=== PATIENT | male | born 1940 | race Caucasian/White ===

== ENCOUNTER → 2016-11-29 | Outpatient (CLI) | payer MEDICAID, MEDICARE, OTHER ==
[2015-12-13 08:57] VITALS: BP 121/65
[~2016-11-29] MED LIST: ASPI325T8 PO; ATOR40TA59 PO; CLOP75TA PO; NITR0.4T SL; PROP150T2 PO
--- NOTE | 2016-11-29 10:14 | RAD ---
Indication hemoptysis. Noncontrast imaging through the chest was performed and is compared to an examination 03/11/2016. History of lung malignancy is noted. Imaging through the upper abdomen shows no acute finding. A right renal cyst and and hepatic cyst are noted similar to the previous exam. Postoperative changes involving the spine are noted. The thoracic aorta appears grossly normal. Coronary artery calcification or stents are noted. There is no significant hilar or mediastinal adenopathy. There is some scarring at the right lung apex similar to the previous exam. Moderate hyperexpansion is noted involving the lungs. An acute finding in the chest is not seen. There has not been a significant change relative to the prior study IMPRESSION: Chronic changes in the right upper lobe. An acute finding in the chest or significant change compared to the study 03/11/2016 is not seen. PQRS Compliance Statement: One or more of the following individualized dose reduction techniques were utilized for this examination: 1. Automated exposure control 2. Adjustment of the mA and/or kV according to patient size 3. Use of iterative reconstruction technique
== END | disposition home or self-care (01) ==
LOC: PF 08:04
PROVIDERS: ATTEND Internal Medicine Pulmonary Disease
DX: N28.1 Cyst of kidney, acquired (principal); K76.89 Other specified diseases of liver; I25.10 Atherosclerotic heart disease of native coronary artery without angina pectoris; J98.4 Other disorders of lung; Z95.5 Presence of coronary angioplasty implant and graft; Z85.118 Personal history of other malignant neoplasm of bronchus and lung
CPT/HCPCS: 71250; 94060; 94729

== ENCOUNTER 2017-10-18 14:22 | Emergency (ER) | payer MEDICARE ==
[2017-10-18] MEDS ORDERED: oxyCODONE/APAP 10/325 1 TAB TABLET PO (15:45)
== END 2017-10-18 17:59 | disposition left against medical advice (07) ==
LOC: ER 14:22
DX: G89.29 Other chronic pain (principal); M25.562 Pain in left knee; I10 Essential (primary) hypertension; I25.2 Old myocardial infarction; I25.10 Atherosclerotic heart disease of native coronary artery without angina pectoris
CPT/HCPCS: 99282

== ENCOUNTER → 2018-01-30 | Outpatient (CLI) | payer MEDICARE ==
[2017-12-09 15:00] VITALS: BP 96/53
[~2018-01-30] MED LIST changes: +LEUP22.52 IM; +LISI2.5T PO; +METO-239 PO; +OXYC-328 PO
--- NOTE | 2018-01-30 09:31 | RAD ---
Ultrasound-guided prostate fiducial marker placements, 01/30/2018: History: Prostate cancer Under transrectal sonographic guidance 3 Civco prostate fiducial markers were placed. The first marker was placed in the superior aspect of the left lobe of the gland. A second marker was placed inferiorly in the left lobe of the gland. A third marker was placed in the midportion of the right lobe of the gland. The patient tolerated the procedure well and left the department in good condition. He is to follow up with Dr. Holland.
== END | disposition home or self-care (01) ==
LOC: US 08:53
PROVIDERS: ATTEND Radiology Radiation Oncology
DX: C61 Malignant neoplasm of prostate (principal); M19.90 Unspecified osteoarthritis, unspecified site; I25.10 Atherosclerotic heart disease of native coronary artery without angina pectoris; J44.9 Chronic obstructive pulmonary disease, unspecified; I10 Essential (primary) hypertension; E78.5 Hyperlipidemia, unspecified; F17.210 Nicotine dependence, cigarettes, uncomplicated; I25.2 Old myocardial infarction; Z72.89 Other problems related to lifestyle; Z85.118 Personal history of other malignant neoplasm of bronchus and lung; Z95.5 Presence of coronary angioplasty implant and graft; Z79.899 Other long term (current) drug therapy; Z79.82 Long term (current) use of aspirin; Z94.2 Lung transplant status; Z98.49 Cataract extraction status, unspecified eye; Z90.49 Acquired absence of other specified parts of digestive tract
CPT/HCPCS: 55876; 77387

== ENCOUNTER 2018-04-30 13:09 | Emergency (ER) | payer MEDICARE, OTHER ==
[~2018-04-30] VITALS: Ht 182.9 cm; Wt 61.7 kg
[~2018-04-30 13:09] MED LIST changes: +DOCU-109 PO; -OXYC-328 PO; +OXYC1TAB22 PO; +TAMS0.4C97 PO
[2018-04-30 14:17] VITALS: BP 141/71
[2018-04-30] MEDS ORDERED: CEPH500C PO (14:57)
[2018-04-30] MEDS ORDERED: SULF1TAB24 PO (14:57)
[2018-04-30] MEDS ORDERED: IBUP-1007 PO (14:58)
--- NOTE | 2018-04-30 15:18 | RAD ---
Indication: Right wrist pain for 6 weeks TECHNIQUE: 3 views of the right wrist COMPARISON: None Findings/ impression: No acute fracture or dislocation. Diffuse moderate osteopenia. Mild radiocarpal joint osteoarthritis. Wrist swelling noted. Electronically signed by: Sidney Wilkinson DO (04/30/2018 3:14 PM) [facility]
--- NOTE | 2018-04-30 15:19 | RAD ---
Indication: Right elbow pain and swelling for 3 weeks. TECHNIQUE: 3 views of the right elbow COMPARISON: None Findings/ impression: No acute fracture or dislocation. No elbow joint effusion. Posterior elbow soft tissue swelling. Small calcific density at the insertion of the triceps tendon may represent a detached enthesophyte or an avulsion fracture. Electronically signed by: Sidney Wilkinson DO (04/30/2018 3:16 PM) [facility]
[2018-04-30] MEDS ORDERED: IBUPROFEN 600 MG TABLET. PO ONE (15:45)
--- NOTE | 2018-04-30 17:51 | PHYS DOC ---
Past Medical History Past Medical History: CAD, Cancer, High Cholesterol, Hypertension, [place] Additional Past Medical Histor: lung ca hx 2000, prostate and colon cancer Past Surgical History: Appendectomy, Other Additional Past Surgical Histo: lobectomy, cardiac stents, back surgery Additional Information: 3-4 cigarettes daily Alcohol Use: Occasionally Drug Use: None Adult General Chief Complaint Chief Complaint: ELBOW PROBLEM HPI HPI Patient is a 77 year old m p/w elbow and wrist pain. x three weeks, getting worse no injury. mild to moderate in nature. no trauma no fever. has never had this before. symptoms mdoerate worsening with time. Review of Systems Review of Systems Constitutional: Denies fever or chills [] Eyes: Denies change in visual acuity, redness, or eye pain [] : Denies dysuria or hematuria [] Musculoskeletal: D Integument: Denies rash or skin lesions [] Neurologic: Denies headache, focal weakness or sensory changes [] Endocrine: Denies polyuria or polydipsia [] All other systems were reviewed and found to be within normal limits, except as documented in this note. Current Medications Current Medications Current Medications Medications (Trade) Dose Ordered Sig/Serge Start Time Stop Time Status Last Admin Dose Admin Ibuprofen (Motrin) 600 mg 1X ONCE 04/30/18 15:45 04/30/18 15:46 DC 04/30/18 15:43 600 MG Allergies Allergies Allergies Coded Allergies Type Severity Reaction Last Updated Verified No Known Drug Allergies 08/27/13 No Physical Exam Physical Exam Constitutional: Well developed, well nourished, no acute distress, non-toxic appearance. [] HENT: Normocephalic, atraumatic, bilateral external ears normal, oropharynx moist, no oral exudates, nose normal. [] Eyes: PERRLA, EOMI, conjunctiva normal, no discharge. [] Neck: Normal range of motion, no tenderness, supple, no stridor. [] normal respiratory effort no increased work of breathing. Abdomen: Bowel sounds normal, soft, no tenderness, no masses, no pulsatile masses. [] Skin: se below Back: No tenderness, no CVA tenderness. [] Extremities: right elbow moderate swlling loclized to olecranon with overlying erythema and warmth rom of elbow is intact. mild swelling right wrist with no erythema or inudration, passive rom is intact. distal strength and sensation is intact [] Neurologic: Alert and oriented X 3, normal motor function, normal sensory function, no focal deficits noted. [] Psychologic: Affect normal, judgement normal, mood normal. [] Current Patient Data Vital Signs Vital Signs Date Time Temp Pulse Resp B/P (MAP) Pulse Ox O2 Delivery O2 Flow Rate FiO2 04/30/18 14:17 98.1 69 18 141/71 (94) 100 Room Air 98.1 EKG EKG [] Radiology/Procedures Radiology/Procedures [] Impressions: TECHNIQUE: 3 views of the right elbow COMPARISON: None Findings/ impression: No acute fracture or dislocation. No elbow joint effusion. Posterior elbow soft tissue swelling. Small calcific density at the insertion of the triceps tendon may represent a detached enthesophyte or an avulsion fracture. Electronically signed by: Sidney Everett DO (04/30/2018 3:16 PM) [facility] DICTATED and SIGNED BY: SIDNEY EVERETT DO DATE: 04/30/18 1514 Findings/ impression: No acute fracture or dislocation. Diffuse moderate osteopenia. Mild radiocarpal joint osteoarthritis. Wrist swelling noted. Electronically signed by: Sidney Everett DO (04/30/2018 3:14 PM) [facility] DICTATED and SIGNED BY: SIDNEY EVERETT DO DATE: 04/30/18 1512 Course & Med Decision Making Course & Med Decision Making Pertinent Labs and Imaging studies reviewed. (See chart for details) []77 yo m hx of prostate ca on radiation therapy pw/ wrist and elbow pain x three weeks. in ed objective olecranon bursitis, query if wrsit is dependent edema or reactive secondary to that. the wrist is not red or inflamed, passive rom is okay, no fever, seems septic joint very unlikely. procedure note: elbow right. verbal consent. wound prepped and drapped lido subq anesthesia, 20 ga needle used to aspirate 10 mL clear straw colored fluid from olecranon. for now, plan is wrist splint, antiinflammatory, sriram wrap to elbow and antibiotics, return prec discussed including worsening symptoms fever etc pt is agreeable. Dragon Disclaimer Dragon Disclaimer This electronic medical record was generated, in whole or in part, using a voice recognition dictation system. Departure Departure Impression: Primary Impression: Olecranon bursitis Disposition: HOME, SELF-CARE Condition: STABLE Patient Instructions: Bursitis, [id number] Additional Instructions: Return for fever greater than 100.5 or worsening pain despite treatment Scripts Ibuprofen (IBUPROFEN) 600 Mg Tablet 600 MG PO PRN Q6HRS PRN for INFLAMMATION, #15 TAB Prov: VELASQUEZ MARIN MD 04/30/18 Sulfamethoxazole/Trimethoprim (BACTRIM DS TABLET) 1 Each Tablet 1 TAB PO BID, #14 TAB Prov: VELASQUEZ MARIN MD 04/30/18 Cephalexin (CEPHALEXIN) 500 Mg Capsule 1 CAP PO TID, #21 CAP Prov: VELASQUEZ MARIN MD 04/30/18 VELASQUEZ MARIN MD Apr 30, 2018 17:51
== END 2018-04-30 15:43 | disposition home or self-care (01) ==
LOC: ER 13:09
DX: M70.21 Olecranon bursitis, right elbow (principal); I25.10 Atherosclerotic heart disease of native coronary artery without angina pectoris; E78.00 Pure hypercholesterolemia, unspecified; I10 Essential (primary) hypertension; I25.2 Old myocardial infarction; F17.210 Nicotine dependence, cigarettes, uncomplicated; Z90.49 Acquired absence of other specified parts of digestive tract; Y93.89 Activity, other specified
CPT/HCPCS: 20605; 29125; 73080; 73110; 99284

== ENCOUNTER → 2018-06-29 | Outpatient (CLI) | payer OTHER ==
[~2018-06-29] MED LIST changes: +CEPH500C PO; +IBUP-1007 PO; +SULF1TAB24 PO
--- NOTE | 2018-06-29 11:47 | RAD ---
MRI of the cervical spine without contrast 06/29/2018 CLINICAL HISTORY: Neck pain which radiates down both arms, right greater than left. TECHNIQUE: Unenhanced T1-weighted, T2-weighted and inversion recovery sagittal and gradient echo and T2-weighted axial images of the cervical spine were obtained. FINDINGS: Mild lateral curvature of the cervical spine is seen convex to the right. There is straightening of the normal cervical lordosis. TECHNIQUE: Unenhanced T1-weighted, T2-weighted and inversion recovery sagittal and gradient echo and T2-weighted axial images of the cervical spine were obtained. FINDINGS: Comparison is made to a CT scan of the cervical spine dated 05/02/2014. Mild lateral curvature of the cervical spine is seen convex to the right. There is straightening of the normal cervical lordosis. Degenerative signal changes are seen involving all of the disks of the cervical spine. Loss of height of the C5-6 and C6-7 discs is noted. Degenerative signal changes are seen within the marrow surrounding these discs. No area of abnormal signal intensity is seen involving the cervical spinal cord. At the C2-3 disc space there is a minimal generalized disc bulge. Degenerative changes are seen involving the uncovertebral and facet joints bilaterally. These findings do not result in significant central spinal canal or neural foraminal stenosis. At the C3-4 disc space there is a mild generalized disc bulge. Degenerative changes are seen involving the uncovertebral and facet joints, left greater than right. These findings when combined do not result in significant central spinal canal stenosis. Mild left neural foraminal stenosis is seen. The right neural foramen is patent. At the C4-5 disc space there is a mild generalized disc bulge. Degenerative changes are seen involving the uncovertebral and facet joints bilaterally. These findings when combined do not result in significant central spinal canal stenosis. Mild right neural foraminal stenosis is seen. The left neural foramen is patent. At the C5-6 disc space there is a mild generalized disc bulge. Superimposed on this disc bulge is a focal central disc protrusion. This measures 3 mm in AP diameter. Degenerative changes are seen involving the uncovertebral and facet joints bilaterally. These findings when combined efface the anterior CSF without resulting in significant central spinal canal stenosis. Mild to moderate left neural foraminal stenosis is seen. The right neural foramen is patent. At the C6-7 disc space there is a mild to moderate generalized disc bulge. This is eccentric to the right. Degenerative changes are seen involving the uncovertebral and facet joints bilaterally. These findings efface the anterior and posterior CSF resulting in mild central spinal canal stenosis without evidence of cord impingement. Moderate bilateral neural foraminal stenosis is seen. At the C7-T1 disc space there is a mild generalized disc bulge. Degenerative changes are seen involving the facet joints, right greater than left. These findings when combined do not result in significant central spinal canal or neural foraminal stenosis. IMPRESSION: Degenerative changes are seen involving the cervical spine. These findings result in mild central spinal canal stenosis at C6-7 without evidence of cord impingement. Mild left neural foraminal stenosis is seen at C3-4. Mild right neural foraminal stenosis is seen at C4-5. Mild to moderate left neural foraminal stenosis is seen at C5-6. Moderate bilateral neural foraminal stenosis is seen at C6-7. Electronically signed by: Jareth Hardy MD (06/29/2018 11:44 AM) [facility]
== END | disposition home or self-care (01) ==
LOC: MRI 09:58
PROVIDERS: ATTEND Orthopaedic Surgery
DX: M48.02 Spinal stenosis, cervical region (principal); M47.22 Other spondylosis with radiculopathy, cervical region; M50.123 Cervical disc disorder at C6-C7 level with radiculopathy; M51.24 Other intervertebral disc displacement, thoracic region; M75.51 Bursitis of right shoulder
CPT/HCPCS: 72141

== ENCOUNTER → 2018-11-22 | Outpatient (CLI) | payer OTHER ==
[~2018-11-22] MED LIST changes: +CONTRAST GIVEN. MC PRN; +IOHEXOL 300 MG/ML 100ML VIAL. IV ONE
--- NOTE | 2018-11-22 13:08 | RAD ---
CT study of the chest with contrast Clinical indications: Lung cancer. History of lobectomy. Follow-up study. COMPARISON: December 09, 2017. TECHNIQUE: After IV infusion of 75 cc of Optiray 300, helical CT scanning of the chest was performed. PQRS compliance Statement One or more of the following individualized dose reduction techniques were utilized for this study: 1. Automated exposure control 2. Adjustment of the mA and/or kV according to patient size 3. Use of iterative reconstruction technique FINDINGS: No enlarged thoracic lymphadenopathy is evident. No focal aneurysmal dilatation or dissection of the thoracic aorta is seen. Heart size is normal. Calcified atheromatous disease of the coronary arteries is seen. No pericardial effusion is seen. Again seen is right apical pleural thickening and right apical nodular scarring and right upper lobe linear scarring which is unchanged. Right upper lobe lobectomy is evident. Proximal bronchial tree is patent. Wall thickening of the residual proximal right upper lobe bronchus previously mentioned is unchanged. No hilar soft tissue mass is evident. There is a new finding of mild wall thickening of the posterior right lateral aspect of the distal trachea. This may be due to adherent mucus. Bilateral emphysema is seen. There is a tiny lung nodule within the lateral aspect of the left upper lobe which is stable. No new lung nodule or lung infiltrate is seen. No pleural effusion or pneumothorax is evident. No adrenal mass is evident. There is a stone of the upper pole of the right kidney. There is a prominent cyst of the lateral aspect of the right kidney which measures 5 cm. Cyst of the anterior segment of the right lobe liver is seen. Again seen is a compression fracture of the lumbar spine with surgical fusion hardware. This is unchanged. No lytic process is seen. IMPRESSION: New finding of wall thickening of the posterior lateral aspect of the distal trachea. This most likely represents adherent mucus. Otherwise stable chest CT. No new lung nodule or lung infiltrate is evident. Electronically signed by: Seven Bui MD (11/22/2018 1:05 PM) [facility]
== END | disposition home or self-care (01) ==
LOC: CT 09:52
PROVIDERS: ATTEND Family Medicine
DX: J43.9 Emphysema, unspecified (principal); I25.10 Atherosclerotic heart disease of native coronary artery without angina pectoris; R91.1 Solitary pulmonary nodule; N28.1 Cyst of kidney, acquired; K76.89 Other specified diseases of liver; M48.56XA Collapsed vertebra, not elsewhere classified, lumbar region, initial encounter for fracture; Z90.2 Acquired absence of lung [part of]; Z85.118 Personal history of other malignant neoplasm of bronchus and lung
CPT/HCPCS: 71260; Q9967

== ENCOUNTER 2018-12-21 18:32 | Emergency (ER) | payer OTHER ==
[~2018-12-21] VITALS: Ht 182.9 cm; Wt 59.0 kg
[~2018-12-21 18:32] MED LIST changes: -CONTRAST GIVEN. MC PRN; -IOHEXOL 300 MG/ML 100ML VIAL. IV ONE
[2018-12-21] MEDS ORDERED: IV NORMAL SALINE 1000ML BAG 1,000 ML IV SCH (18:43)
[2018-12-21] MEDS ORDERED: fentaNYL PF VIAL 100 MCG/2 ML VIAL IV PRN (18:45)
--- NOTE | 2018-12-21 18:51 | PHYS DOC ---
Past Medical History Past Medical History: CAD, Cancer, High Cholesterol, Hypertension, [place] Additional Past Medical Histor: lung ca hx 2000, prostate and colon cancer Past Surgical History: Appendectomy, Other Additional Past Surgical Histo: lobectomy, cardiac stents, back surgery Alcohol Use: Occasionally Drug Use: None Adult General Chief Complaint Chief Complaint: CHEST PAIN HPI HPI Patient is a 78-year-old male who presents with complaint of generalized abdominal pain that he states goes into his lower chest. He states the pain started about 1:00 this afternoon. He states that he's been having this problem for the last couple of weeks and has been waxing and waning. Currently he rates his pain between a 7 and an 8 out of 10. He denies any radiation into his back. He denies any nausea or vomiting and states his last bowel movement was 2 days ago. He states that he has been constipated. Patient also indicates that he has a history of difficulty with swallowing and has had esophageal obstruction in the past. He does not feel like he has a blockage at this time.[] Review of Systems Review of Systems Constitutional: Denies fever or chills [] Respiratory: Denies cough or shortness of breath [] Cardiovascular: No additional information not addressed in HPI [] GI: Complains of abdominal pain without vomiting or diarrhea [] : Denies dysuria or hematuria [] Musculoskeletal: Denies back pain or joint pain [] All other systems were reviewed and found to be within normal limits, except as documented in this note. Current Medications Current Medications Current Medications Medications (Trade) Dose Ordered Sig/Serge Start Time Stop Time Status Last Admin Dose Admin Fentanyl Citrate (Fentanyl 2ml Vial) 25 mcg PRN Q15MIN PRN 12/21/18 18:45 12/22/18 18:44 12/21/18 19:18 25 MCG Info (CONTRAST GIVEN -- Rx MONITORING) 1 each PRN DAILY PRN 12/21/18 19:45 12/23/18 19:44 Iohexol (Omnipaque 300 Mg/ml) 75 ml 1X ONCE 12/21/18 20:00 12/21/18 20:01 DC 12/21/18 20:16 75 ML Ondansetron HCl (Zofran) 4 mg 1X ONCE 12/21/18 19:15 12/21/18 19:16 DC 12/21/18 19:18 4 MG Sodium Chloride 1,000 ml @ 1,000 mls/hr Q1H 12/21/18 18:43 12/21/18 19:42 DC 12/21/18 19:18 1,000 MLS/HR Allergies Allergies Allergies Coded Allergies Type Severity Reaction Last Updated Verified No Known Drug Allergies 08/27/13 No Physical Exam Physical Exam Constitutional: Well developed, well nourished, no acute distress, non-toxic appearance. [] HENT: Normocephalic, atraumatic, bilateral external ears normal, oropharynx dry, no oral exudates, nose normal. [] Eyes: PERRLA, EOMI, conjunctiva normal, no discharge. [] Neck: Normal range of motion, no tenderness, supple, no stridor. [] Cardiovascular:Heart rate regular rhythm, no murmur [] Lungs & Thorax: Bilateral breath sounds clear to auscultation [] Abdomen: Bowel sounds normal, soft, with generalized tenderness. [] Skin: Warm, dry, no erythema, no rash. [] Extremities: No tenderness, no cyanosis, no clubbing, ROM intact, no edema. [] Neurologic: Alert and oriented X 3, no focal deficits noted. [] Current Patient Data Vital Signs Vital Signs Date Time Temp Pulse Resp B/P (MAP) Pulse Ox O2 Delivery O2 Flow Rate FiO2 12/21/18 21:03 86 16 123/69 (87) 97 Room Air 12/21/18 18:43 98.2 98.2 Lab Values Laboratory Tests Test 12/21/18 18:53 12/21/18 21:22 White Blood Count 4.4 x10^3/uL (4.0-11.0) Red Blood Count 4.26 x10^6/uL (4.30-5.70) L Hemoglobin 12.5 g/dL (13.0-17.5) L Hematocrit 37.2 % (39.0-53.0) L Mean Corpuscular Volume 87 fL (79-100) Mean Corpuscular Hemoglobin 30 pg (25-35) Mean Corpuscular Hemoglobin Concent 34 g/dL (31-37) Red Cell Distribution Width 14.0 % (11.5-14.5) Platelet Count 161 x10^3/uL (140-400) Neutrophils (%) (Auto) 60 % (31-73) Lymphocytes (%) (Auto) 24 % (24-48) Monocytes (%) (Auto) 11 % (0-9) H Eosinophils (%) (Auto) 4 % (0-3) H Basophils (%) (Auto) 1 % (0-3) Neutrophils # (Auto) 2.7 x10^3/uL (1.8-7.7) Lymphocytes # (Auto) 1.1 x10^3/uL (1.0-4.8) Monocytes # (Auto) 0.5 x10^3/uL (0.0-1.1) Eosinophils # (Auto) 0.2 x10^3/uL (0.0-0.7) Basophils # (Auto) 0.0 x10^3/uL (0.0-0.2) Prothrombin Time 14.0 SEC (11.7-14.0) Prothrombin Time INR 1.1 (0.8-1.1) Activated Partial Thromboplast Time 35 SEC (24-38) Sodium Level 145 mmol/L (136-145) Potassium Level 4.0 mmol/L (3.5-5.1) Chloride Level 108 mmol/L (98-107) H Carbon Dioxide Level 27 mmol/L (21-32) Anion Gap 10 (6-14) Blood Urea Nitrogen 20 mg/dL (8-26) Creatinine 0.9 mg/dL (0.7-1.3) Estimated GFR (Cockcroft-Gault) 82.0 BUN/Creatinine Ratio 22 (6-20) H Glucose Level 93 mg/dL (70-99) Calcium Level 9.2 mg/dL (8.5-10.1) Total Bilirubin 0.3 mg/dL (0.2-1.0) Aspartate Amino Transferase (AST) 17 U/L (15-37) Alanine Aminotransferase (ALT) 21 U/L (16-63) Alkaline Phosphatase 88 U/L (46-116) Troponin I Quantitative 0.020 ng/mL (0.000-0.055) < 0.017 ng/mL (0.000-0.055) Total Protein 6.3 g/dL (6.4-8.2) L Albumin 3.1 g/dL (3.4-5.0) L Albumin/Globulin Ratio 1.0 (1.0-1.7) Lipase 63 U/L (73-393) L Laboratory Tests 12/21/18 18:53 Laboratory Tests 12/21/18 18:53 EKG EKG [] Interpretation Time: EKG demonstrates sinus rhythm with rate of 100 with left bundle branch block pattern Radiology/Procedures Radiology/Procedures [] Impressions: PROCEDURE: CT ABD PELV W/ IV CONTRST ONLY CT ABD PELV W/ IV CONTRST ONLY History: Abdominal pain Comparison: 10/11/2017 Technique: After administration of intravenous contrast, helical CT of the abdomen and pelvis was performed from the lung bases through the ischial tuberosities. Coronal and sagittal reconstructions were obtained. 75 mL of Omnipaque 350 were used. One or more of the following dose reduction techniques were utilized: Automated exposure control (AEC), Adjustment of mA and/or kV according to patient size, Use of iterative reconstruction technique such as ASiR, CT scan done according to ALARA and image gently/image wisely Abdomen Findings: The visualized lung bases are clear. The liver, gallbladder, pancreas, spleen, and bilateral adrenal glands are normal. Stable right hepatic cyst. Symmetric renal enhancement. Stable right renal cysts. Punctate 2 mm right renal nonobstructive calculus. There is no hydronephrosis. The visualized loops of small bowel are normal. The visualized loops of large bowel are normal. There is no evidence of bowel obstruction. Appendix is not seen. Moderate to large colonic stool burden. There is no free fluid. There is no mesenteric or retroperitoneal adenopathy. The abdominal aorta is normal in caliber. Moderate aortoiliac atherosclerotic disease. Pelvis Findings: Urinary bladder is normal. No pelvic free fluid. There is no pelvic or inguinal adenopathy. Posterior instrumentation at T11-L3, bridging a chronic L1 fracture. IMPRESSION: No dilated bowel. No fluid collection. Moderate to large colonic stool burden may reflect constipation. Electronically signed by: Lb Marmolejo MD (12/21/2018 8:23 PM) [facility] DICTATED and SIGNED BY: LB MARMOLEJO MD DATE: 12/21/182022 Course & Med Decision Making Course & Med Decision Making Pertinent Labs and Imaging studies reviewed. (See chart for details) [] Dragon Disclaimer Dragon Disclaimer This electronic medical record was generated, in whole or in part, using a voice recognition dictation system. Departure Departure Impression: Primary Impression: Generalized abdominal pain Additional Impression: Constipation Disposition: HOME, SELF-CARE Condition: STABLE Referrals: NATASHA BANSAL MD (PCP) Patient Instructions: Abdominal Pain, Constipation, Adult Scripts Lactulose (LACTULOSE) 20 Gm/30 Ml Solution 10 GM PO DAILY PRN for CONSTIPATION, #900 ML Prov: NOBLE CORREIA Jr. DO 12/21/18 Problem Qualifiers Additional Impression: Constipation Constipation type: drug induced constipation Qualified Codes: K59.03 - Drug induced constipation NOBLE CORREIA Jr. DO Dec 21, 2018 18:50
[2018-12-21 19:02] LABS: BASO % 1 % (0-3); EOS # 0.2 x10^3/uL (0.0-0.7); EOS % 4 % (0-3); HEMATOCRIT 37.2 % (39.0-53.0); HEMOGLOBIN 12.5 g/dL (13.0-17.5); LYMPH # 1.1 x10^3/uL (1.0-4.8); LYMPH % 24 % (24-48); MEAN CORPUSCULAR HEMOGLOBIN 30 pg (25-35); MEAN CORPUSCULAR HGB CONC 34 g/dL (31-37); MEAN CORPUSCULAR VOLUME 87 fL (79-100); MONO # 0.5 x10^3/uL (0.0-1.1); MONO % 11 % (0-9); NEUT # 2.7 x10^3/uL (1.8-7.7); NEUT % 60 % (31-73); PLATELET COUNT 161 x10^3/uL (140-400); RED BLOOD COUNT 4.26 x10^6/uL (4.30-5.70); WHITE BLOOD COUNT 4.4 x10^3/uL (4.0-11.0)
[2018-12-21 19:10] LABS: CALCIUM 9.2 mg/dL (8.5-10.1); CREATININE 0.9 mg/dL (0.7-1.3)
[2018-12-21 19:15] LABS: ALBUMIN 3.1 g/dL (3.4-5.0); TOTAL BILIRUBIN 0.3 mg/dL (0.2-1.0); TOTAL PROTEIN 6.3 g/dL (6.4-8.2)
[2018-12-21] MEDS ORDERED: ONDANSETRON PF 4 MG/2 ML VIAL. IV ONE (19:15)
[2018-12-21] MEDS ORDERED: CONTRAST GIVEN. MC PRN (19:45)
[2018-12-21] MEDS ORDERED: IOHEXOL 300 MG/ML 100ML VIAL. IV ONE (20:00)
--- NOTE | 2018-12-21 20:26 | RAD ---
CT ABD PELV W/ IV CONTRST ONLY History: Abdominal pain Comparison: 10/11/2017 Technique: After administration of intravenous contrast, helical CT of the abdomen and pelvis was performed from the lung bases through the ischial tuberosities. Coronal and sagittal reconstructions were obtained. 75 mL of Omnipaque 350 were used. One or more of the following dose reduction techniques were utilized: Automated exposure control (AEC), Adjustment of mA and/or kV according to patient size, Use of iterative reconstruction technique such as ASiR, CT scan done according to ALARA and image gently/image wisely Abdomen Findings: The visualized lung bases are clear. The liver, gallbladder, pancreas, spleen, and bilateral adrenal glands are normal. Stable right hepatic cyst. Symmetric renal enhancement. Stable right renal cysts. Punctate 2 mm right renal nonobstructive calculus. There is no hydronephrosis. The visualized loops of small bowel are normal. The visualized loops of large bowel are normal. There is no evidence of bowel obstruction. Appendix is not seen. Moderate to large colonic stool burden. There is no free fluid. There is no mesenteric or retroperitoneal adenopathy. The abdominal aorta is normal in caliber. Moderate aortoiliac atherosclerotic disease. Pelvis Findings: Urinary bladder is normal. No pelvic free fluid. There is no pelvic or inguinal adenopathy. Posterior instrumentation at T11-L3, bridging a chronic L1 fracture. IMPRESSION: No dilated bowel. No fluid collection. Moderate to large colonic stool burden may reflect constipation. Electronically signed by: Nato Greogry MD (12/21/2018 8:23 PM) [facility]
[2018-12-21] MEDS ORDERED: LACT20SO PO (21:59)
[2018-12-21 22:03] VITALS: BP 130/75
--- NOTE | 2018-12-22 07:09 | EKG ---
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
== END 2018-12-21 22:42 | disposition home or self-care (01) ==
LOC: ER 18:32
DX: K59.03 Drug induced constipation (principal); I10 Essential (primary) hypertension; I25.2 Old myocardial infarction; E78.00 Pure hypercholesterolemia, unspecified; I25.10 Atherosclerotic heart disease of native coronary artery without angina pectoris; Z90.89 Acquired absence of other organs
CPT/HCPCS: 36415; 74177; 80053; 83690; 84484; 85025; 85610; 85730; 93005; 96374; 96375; 99285; J2405; J3010; J7030; Q9967

== ENCOUNTER 2018-12-24 10:39 | Emergency (ER) | payer OTHER ==
[~2018-12-24] VITALS: Ht 182.9 cm; Wt 56.2 kg
[~2018-12-24 10:39] MED LIST changes: +LACT20SO PO
--- NOTE | 2018-12-24 11:10 | PHYS DOC ---
Past Medical History Past Medical History: CAD, Cancer, High Cholesterol, Hypertension, [place], Other Additional Past Medical Histor: lung ca hx 2000, prostate/colon cancer Past Surgical History: Appendectomy, Other Additional Past Surgical Histo: lobectomy, cardiac stents, back surgery Alcohol Use: None Drug Use: None Adult General Chief Complaint Chief Complaint: ABDOMINAL PAIN HPI HPI 78-year-old male presenting the emergency pertinent today with left lower quadrant abdominal pain that is a sharp moderate nonradiating pain. He has associated constipation with this. He denies blood in his stools. He denies chest pain or shortness of breath. Review of systems is negative for chest pain shortness of breath fevers chills headache neck stiffness. All other review of systems negative. ED course: 78-year-old male presenting with left lower quadrant abdominal pain. Blood work ordered along with CT abdomen pelvis. EKG obtained and reviewed by myself shows sinus rhythm with a regular rate. ST segments congruent. Not suggestive of ACS. Nonspecific mild repolarization abnormalities in lead V3 and does not meet STEMI criteria. Blood work shows mild nonspecific leukopenia. Otherwise CT abdomen pelvis shows no acute abnormalities. We will discharge patient home to follow up with PCP in one day for repeat abdominal exam. Current Medications Current Medications Current Medications Medications (Trade) Dose Ordered Sig/Serge Start Time Stop Time Status Last Admin Dose Admin Info (CONTRAST GIVEN -- Rx MONITORING) 1 each PRN DAILY PRN 12/24/18 12:15 12/26/18 12:14 Iohexol (Omnipaque 300 Mg/ml) 75 ml 1X ONCE 12/24/18 12:15 12/24/18 12:16 DC 12/24/18 13:08 75 ML Morphine Sulfate (Morphine Sulfate) 2 mg PRN Q1HR PRN 12/24/18 11:45 12/24/18 12:31 2 MG Allergies Allergies Allergies Coded Allergies Type Severity Reaction Last Updated Verified No Known Drug Allergies 08/27/13 No Physical Exam Physical Exam Constitutional: Well developed, well nourished, no acute distress, non-toxic appearance. HENT: Normocephalic, atraumatic, bilateral external ears normal, oropharynx moist, no oral exudates, nose normal. [] Eyes: PERRLA, EOMI, conjunctiva normal, no discharge. [] Neck: Normal range of motion, no tenderness, supple, no stridor. [] Cardiovascular:Heart rate regular rhythm, no murmur [] Lungs & Thorax: Bilateral breath sounds clear to auscultation [] Abdomen: Mild tenderness palpation of the left lower quadrant. No rebound tenderness or guarding. Negative McBurney's point. Negative Vaughn sign. Bowel sounds are normal. Nondistended Skin: Warm, dry, no erythema, no rash. Back: No tenderness, no CVA tenderness. [] Extremities: No tenderness, no cyanosis, no clubbing, ROM intact, no edema. Neurologic: Alert and oriented X 3, normal motor function, normal sensory function, no focal deficits noted. [] Psychologic: Affect normal, judgement normal, mood normal. [] Current Patient Data Vital Signs Vital Signs Date Time Temp Pulse Resp B/P (MAP) Pulse Ox O2 Delivery O2 Flow Rate FiO2 12/24/18 13:02 16 100 12/24/18 12:31 Room Air 12/24/18 12:20 65 118/61 (80) 12/24/18 10:46 97.6 97.6 Lab Values Laboratory Tests Test 12/24/18 10:45 12/24/18 11:25 Urine Collection Type Unknown Urine Color Yellow Urine Clarity Clear Urine pH 6.0 Urine Specific [place] 1.020 Urine Protein Negative mg/dL (NEG-TRACE) Urine Glucose (UA) Negative mg/dL (NEG) Urine Ketones (Stick) 15 mg/dL (NEG) Urine Blood Negative (NEG) Urine Nitrite Negative (NEG) Urine Bilirubin Negative (NEG) Urine Urobilinogen Dipstick 1.0 mg/dL (0.2 mg/dL) Urine Leukocyte Esterase Negative (NEG) Urine RBC Occ /HPF (0-2) Urine WBC Occ /HPF (0-4) Urine Squamous Epithelial Cells Few /LPF Urine Bacteria 0 /HPF (0-FEW) Urine Mucus Marked /LPF White Blood Count 3.9 x10^3/uL (4.0-11.0) L Red Blood Count 4.64 x10^6/uL (4.30-5.70) Hemoglobin 13.4 g/dL (13.0-17.5) Hematocrit 40.5 % (39.0-53.0) Mean Corpuscular Volume 88 fL (79-100) Mean Corpuscular Hemoglobin 29 pg (25-35) Mean Corpuscular Hemoglobin Concent 33 g/dL (31-37) Red Cell Distribution Width 14.2 % (11.5-14.5) Platelet Count 168 x10^3/uL (140-400) Neutrophils (%) (Auto) 69 % (31-73) Lymphocytes (%) (Auto) 20 % (24-48) L Monocytes (%) (Auto) 9 % (0-9) Eosinophils (%) (Auto) 1 % (0-3) Basophils (%) (Auto) 1 % (0-3) Neutrophils # (Auto) 2.6 x10^3/uL (1.8-7.7) Lymphocytes # (Auto) 0.8 x10^3/uL (1.0-4.8) L Monocytes # (Auto) 0.4 x10^3/uL (0.0-1.1) Eosinophils # (Auto) 0.0 x10^3/uL (0.0-0.7) Basophils # (Auto) 0.1 x10^3/uL (0.0-0.2) Sodium Level 142 mmol/L (136-145) Potassium Level 4.1 mmol/L (3.5-5.1) Chloride Level 104 mmol/L (98-107) Carbon Dioxide Level 29 mmol/L (21-32) Anion Gap 9 (6-14) Blood Urea Nitrogen 11 mg/dL (8-26) Creatinine 0.7 mg/dL (0.7-1.3) Estimated GFR (Cockcroft-Gault) 109.6 Glucose Level 93 mg/dL (70-99) Calcium Level 9.2 mg/dL (8.5-10.1) Total Bilirubin 0.4 mg/dL (0.2-1.0) Direct Bilirubin 0.1 mg/dL (0.0-0.2) Aspartate Amino Transferase (AST) 19 U/L (15-37) Alanine Aminotransferase (ALT) 20 U/L (16-63) Alkaline Phosphatase 91 U/L (46-116) Troponin I Quantitative < 0.017 ng/mL (0.000-0.055) Total Protein 6.6 g/dL (6.4-8.2) Albumin 3.1 g/dL (3.4-5.0) L Lipase 61 U/L (73-393) L Laboratory Tests 12/24/18 11:25 Laboratory Tests 12/24/18 11:25 EKG EKG [] Radiology/Procedures Radiology/Procedures [] Course & Med Decision Making Course & Med Decision Making Pertinent Labs and Imaging studies reviewed. (See chart for details) [] Dragon Disclaimer Dragon Disclaimer This electronic medical record was generated, in whole or in part, using a voice recognition dictation system. Departure Departure Impression: Primary Impression: LLQ abdominal pain Disposition: HOME, SELF-CARE Condition: STABLE Referrals: NATASHA BANSAL MD (PCP) Patient Instructions: Abdominal Pain Additional Instructions: Thank you for allowing us to participate in your care today. Return to the emergency department you have any new or worsening symptoms, or if you are concerned for any reason. Return to emergency department if you have any new or concerning symptoms including but not limited to fever, chills, nausea, vomiting, intractable pain, any new rashes, chest pain, shortness of air, uncontrolled bleeding, difficulty breathing, and/or vision loss. Follow up with your primary care physician within 1-2 days. Call your Primary Doctor tomorrow and inform them of your visit today. If you do not have a primary care provider we are happy to provide you with a list of our primary care providers contact information. This condition should be evaluated by your primary care physician and any recommended consulting services for continued management within 2 days after discharge. If at any time, you are having difficulty getting into your primary care doctor or a specialist, return to the emergency department. MAURY SHIELDS MD Dec 24, 2018 11:10
[2018-12-24 11:20] LABS: BILIRUBIN,URINE NEGATIVE (NEG); CLARITY,URINE CLEAR; COLOR,URINE YELLOW; NITRITE,URINE NEGATIVE (NEG); PROTEIN,URINE NEGATIVE (NEG-TRACE)
[2018-12-24 11:35] LABS: BACTERIA,URINE 0 /HPF (0-FEW); RBC,URINE OCC /HPF (0-2); SQUAMOUS EPITHELIAL CELL,UR FEW /LPF; WBC,URINE OCC /HPF (0-4)
[2018-12-24 11:45] LABS: BASO # 0.1 x10^3/uL (0.0-0.2); BASO % 1 % (0-3); EOS % 1 % (0-3); HEMATOCRIT 40.5 % (39.0-53.0); HEMOGLOBIN 13.4 g/dL (13.0-17.5); LYMPH # 0.8 x10^3/uL (1.0-4.8); LYMPH % 20 % (24-48); MEAN CORPUSCULAR HEMOGLOBIN 29 pg (25-35); MEAN CORPUSCULAR HGB CONC 33 g/dL (31-37); MEAN CORPUSCULAR VOLUME 88 fL (79-100); MONO # 0.4 x10^3/uL (0.0-1.1); MONO % 9 % (0-9); NEUT # 2.6 x10^3/uL (1.8-7.7); NEUT % 69 % (31-73); PLATELET COUNT 168 x10^3/uL (140-400); RED BLOOD COUNT 4.64 x10^6/uL (4.30-5.70); RED CELL DISTRIBUTION WIDTH 14.2 % (11.5-14.5); WHITE BLOOD COUNT 3.9 x10^3/uL (4.0-11.0)
[2018-12-24] MEDS ORDERED: MORPHINE SULFATE 2 MG/ML VIAL. IV PRN (11:45)
[2018-12-24 11:47] LABS: CALCIUM 9.2 mg/dL (8.5-10.1); CREATININE 0.7 mg/dL (0.7-1.3); GFR 109.6; POTASSIUM 4.1 mmol/L (3.5-5.1)
[2018-12-24 11:53] LABS: ALBUMIN 3.1 g/dL (3.4-5.0); DIRECT BILIRUBIN 0.1 mg/dL (0.0-0.2); TOTAL BILIRUBIN 0.4 mg/dL (0.2-1.0); TOTAL PROTEIN 6.6 g/dL (6.4-8.2)
[2018-12-24] MEDS ORDERED: IOHEXOL 300 MG/ML 100ML VIAL. IV ONE (12:15)
[2018-12-24] MEDS ORDERED: CONTRAST GIVEN. MC PRN (12:15)
--- NOTE | 2018-12-24 13:23 | RAD ---
CT ABD PELV W/ IV CONTRST ONLY Indication: Lower abdominal pain for a few days Exposure: One or more of the following individualized dose reduction techniques were utilized for this examination: 1. Automated exposure control 2. Adjustment of the mA and/or kV according to patient size 3. Use of iterative reconstruction technique. Technique: Intravenous contrast was given. No oral contrast per request. Comparison: December 21, 2018 FINDINGS: Emphysematous changes in the lung bases. There is extensive image degradation due to metal artifact from spinal fixation hardware. Lesion in the right lobe of the liver measures 16 mm diameter and 40 Hounsfield units, although this may be inaccurate due to the artifact. Spleen is grossly unremarkable. Pancreas is not well seen due to the artifact but no obvious abnormality. No evidence of adrenal mass although partially obscured. The kidneys appear to enhance symmetrically without hydronephrosis. Low-density lesions of the right kidney are again seen, largest measures 4.7 cm, and compatible with a cyst by density measurement. No evidence of a calcified gallstone. The visualized aorta is calcified without aneurysm. No definite pathologic lymph node enlargement. Apparent gastric wall thickening may be due to nondistention. No significant small bowel dilatation no evidence of bowel obstruction or acute colitis. There may be trace free pelvic fluid. No significant pneumoperitoneum. Mild stool in the colon, but less than what was seen on the prior study. IMPRESSION: 1. No significant acute finding has developed since prior study. 2. Right lobe liver lesion is stable since earlier study of October 11, 2017. 3. Renal lesions are again seen, most likely cysts. 4. There may be trace free pelvic fluid of uncertain etiology. Electronically signed by: Phil Alexandre MD (12/24/2018 1:20 PM) [facility]
[2018-12-24 13:58] VITALS: BP 127/83
--- NOTE | 2018-12-25 05:59 | EKG ---
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
== END 2018-12-24 14:07 | disposition home or self-care (01) ==
LOC: ER 10:39
DX: R10.32 Left lower quadrant pain (principal); K59.00 Constipation, unspecified; E78.00 Pure hypercholesterolemia, unspecified; I10 Essential (primary) hypertension; I25.10 Atherosclerotic heart disease of native coronary artery without angina pectoris; I25.2 Old myocardial infarction; Z90.89 Acquired absence of other organs; Z95.5 Presence of coronary angioplasty implant and graft; Z98.890 Other specified postprocedural states
CPT/HCPCS: 99285; J2270; Q9967; 36415; 74177; 80048; 80076; 81001; 83690; 84484; 85025; 93005; 96374

== ENCOUNTER 2018-12-26 10:04 | Inpatient (IN) | payer OTHER ==
[2018-12-26] VITALS (11 sets, daily range): BP systolic 97–130; BP diastolic 53–64
[~2018-12-26] VITALS: Ht 182.9 cm; Wt 56.9 kg
--- NOTE | 2018-12-26 10:25 | EKG ---
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
[2018-12-26] MEDS ORDERED: NITROGLYCERIN SUBLINGUAL 0.4 MG BOTTLE OF 25. SL PRN ×2 (10:30→15:00)
[2018-12-26 10:41] LABS: BASO % 1 % (0-3); EOS % 0 % (0-3); HEMATOCRIT 43.6 % (39.0-53.0); HEMOGLOBIN 14.4 g/dL (13.0-17.5); LYMPH # 0.6 x10^3/uL (1.0-4.8); LYMPH % 11 % (24-48); MEAN CORPUSCULAR HEMOGLOBIN 29 pg (25-35); MEAN CORPUSCULAR HGB CONC 33 g/dL (31-37); MEAN CORPUSCULAR VOLUME 88 fL (79-100); MONO # 0.3 x10^3/uL (0.0-1.1); MONO % 6 % (0-9); NEUT # 4.2 x10^3/uL (1.8-7.7); NEUT % 82 % (31-73); PLATELET COUNT 182 x10^3/uL (140-400); RED BLOOD COUNT 4.97 x10^6/uL (4.30-5.70); WHITE BLOOD COUNT 5.2 x10^3/uL (4.0-11.0)
[2018-12-26 10:44] LABS: CALCIUM 9.4 mg/dL (8.5-10.1); GFR 72.6; POTASSIUM 4.2 mmol/L (3.5-5.1)
[2018-12-26 10:50] LABS: ALBUMIN 3.3 g/dL (3.4-5.0); ALBUMIN/GLOBULIN RATIO 0.9 (1.0-1.7); TOTAL BILIRUBIN 0.4 mg/dL (0.2-1.0); TOTAL PROTEIN 6.8 g/dL (6.4-8.2)
[2018-12-26 10:52] LABS: PROTHROMBIN TIME PATIENT 12.6 SEC (11.7-14.0)
--- NOTE | 2018-12-26 10:56 | RAD ---
PORTABLE CHEST 1V History: Chest pain Comparison: November 22, 2018 CT. Findings: Post operative changes right upper lobectomy. Right basilar pleural thickening and scarring, similar compared to prior CT. No definite pleural effusion. Normal heart size. Postop changes thoracolumbar spine. Right apical asymmetric pleural thickening, unchanged. No new consolidation. Impression: 1. No acute cardiopulmonary process. 2. Postop changes right upper lobectomy with pleural parenchymal scarring, similar compared to prior. Electronically signed by: Erasto Srinivasan DO (12/26/2018 10:54 AM) [id number]
[2018-12-26] MEDS ORDERED: ASPIRIN CHEWABLE 81 MG TABLET. PO ONE (11:00)
[2018-12-26 13:50] LABS: CHOLESTEROL/HDL RATIO 2.2; MAGNESIUM 1.7 mg/dL (1.8-2.4)
--- NOTE | 2018-12-26 14:10 | PDOC1 ---
History and Physical Date of Admission Date of Admission DATE: 12/26/18 TIME: 14:06 Identification/Chief Complaint Chief Complaint cp woke him up from sleep Source Source: Caregiver, Chart review, Patient History of Present Illness History of Present Illness [age] white male lives alone at home, known to Dr. mace, history of CAD maybe 5 or 6 stents total, not the best historian, on aspirin Plavix and propafenone - so likely some arrhythmia history. Admitted because of chest pain rule out. Chest pain woke him up twice today from sleep. Happened at rest, maybe some SOA but denies presyncopal symptoms or lightheadedness or palpitations. Cards consulted, troponin negative chest x-ray unremarkable. EKG LBBB not present in 2018. Was here at ER 2 days ago for abdominal pain and the LBBB was present. Some choking episodes giving aspirin as per [employer]AM[employer]. We'll start ProcalAmine nothing by mouth CHOIR SINGER eval PT OT cards consulted and echocardiogram in order. Can eat if CHOIR SINGER evaluates safe to swallow Past Medical History Cardiovascular: AFIB, CAD, HTN, Hyperlipidemia Pulmonary: COPD GI: Constipation Heme/Onc: Cancer Hepatobiliary: No pertinent hx Psych: No pertinent hx Musculoskeletal: low back pain, Osteoarthritis, Other Rheumatologic: No pertinent hx Infectious disease: No pertinent hx Renal/: No pertinent hx Endocrine: No pertinent hx Past Surgical History Past Surgical History: Arthroscopy, Cataract Removal, Other Family History Family History: Heart Disease Social History Smoke: No ALCOHOL: occassional Drugs: None Current Medications Current Medications Current Medications Nitroglycerin (Nitrostat) 0.4 mg PRN Q5MIN PRN SL CHEST PAIN Last administered on 12/26/18at 10:37; Start 12/26/18 at 10:30 Aspirin (Children'S Aspirin) 324 mg 1X ONCE PO Last administered on 12/26/18at 10:37; Start 12/26/18 at 11:00; Stop 12/26/18 at 11:01; Status DC Active Scripts Active Lactulose 20 Gm/30 Ml Solution 10 Gm PO DAILY PRN Reported Colace (Docusate Sodium) 100 Mg Capsule 100 Mg PO DAILY Flomax (Tamsulosin Hcl) 0.4 Mg Cap.er.24h 0.4 Mg PO HS Metoprolol Succinate ( Xl ) (Metoprolol Succinate) 25 Mg Tab.er.24h 25 Mg PO 1/2TAB DAILY Percocet 10-325 Mg Tablet (Oxycodone/Acetaminophen) 1 Each Tablet 1 Tab PO Q4-6HRS PRN Clopidogrel (Clopidogrel Bisulfate) 75 Mg Tablet 75 Mg PO DAILY Aspirin 325 Mg Tablet 325 Mg PO DAILY Propafenone Hcl 150 Mg Tablet 150 Mg PO BID Atorvastatin Calcium 40 Mg Tablet 80 Mg PO HS Nitrostat (Nitroglycerin) 0.4 Mg Tab.subl 0.4 Mg SL PRN Q5MIN Allergies Allergies: Coded Allergies: No Known Drug Allergies (Unverified , 08/27/13) ROS Review of System As per history of present illness, the rest of ROS 14 point negative Physical Exam General: No acute distress HEENT: Atraumatic, PERRLA Lungs: Clear to auscultation, Normal air movement Heart: S1S2, RRR, no thrills, no rubs, no gallops, no murmurs Cardiovascular: S1, S2 Abdomen: Normal bowel sounds, Soft, No tenderness, No hepatosplenomegaly, No masses Male Genitals Exam: normal genitalia, normal prostate Rectal Exam: not examined PELVIC: Nml ext genitalia Extremities: No clubbing Skin: No rashes, No breakdown, No significant lesion Neuro: Normal gait, Normal speech, Strength at 5/5 X4 ext, Normal tone, Sensation intact, Cranial nerves 3-12 NL, Reflexes 2+ Psych/Mental Status: Mental status NL, Mood NL Vitals Vitals Vital Signs Date Time Temp Pulse Resp B/P (MAP) Pulse Ox O2 Delivery O2 Flow Rate FiO2 12/26/18 13:10 84 18 105/57 (73) 98 Room Air 12/26/18 10:08 97.7 97.7 Labs Labs Laboratory Tests Test 12/26/18 10:25 White Blood Count 5.2 x10^3/uL (4.0-11.0) Red Blood Count 4.97 x10^6/uL (4.30-5.70) Hemoglobin 14.4 g/dL (13.0-17.5) Hematocrit 43.6 % (39.0-53.0) Mean Corpuscular Volume 88 fL (79-100) Mean Corpuscular Hemoglobin 29 pg (25-35) Mean Corpuscular Hemoglobin Concent 33 g/dL (31-37) Red Cell Distribution Width 14.0 % (11.5-14.5) Platelet Count 182 x10^3/uL (140-400) Neutrophils (%) (Auto) 82 % (31-73) Lymphocytes (%) (Auto) 11 % (24-48) Monocytes (%) (Auto) 6 % (0-9) Eosinophils (%) (Auto) 0 % (0-3) Basophils (%) (Auto) 1 % (0-3) Neutrophils # (Auto) 4.2 x10^3/uL (1.8-7.7) Lymphocytes # (Auto) 0.6 x10^3/uL (1.0-4.8) Monocytes # (Auto) 0.3 x10^3/uL (0.0-1.1) Eosinophils # (Auto) 0.0 x10^3/uL (0.0-0.7) Basophils # (Auto) 0.0 x10^3/uL (0.0-0.2) Prothrombin Time 12.6 SEC (11.7-14.0) Prothromb Time International Ratio 1.0 (0.8-1.1) Sodium Level 143 mmol/L (136-145) Potassium Level 4.2 mmol/L (3.5-5.1) Chloride Level 105 mmol/L (98-107) Carbon Dioxide Level 28 mmol/L (21-32) Anion Gap 10 (6-14) Blood Urea Nitrogen 15 mg/dL (8-26) Creatinine 1.0 mg/dL (0.7-1.3) Estimated GFR (Cockcroft-Gault) 72.6 BUN/Creatinine Ratio 15 (6-20) Glucose Level 130 mg/dL (70-99) Calcium Level 9.4 mg/dL (8.5-10.1) Magnesium Level 1.7 mg/dL (1.8-2.4) Total Bilirubin 0.4 mg/dL (0.2-1.0) Aspartate Amino Transf (AST/SGOT) 17 U/L (15-37) Alanine Aminotransferase (ALT/SGPT) 20 U/L (16-63) Alkaline Phosphatase 93 U/L (46-116) Troponin I Quantitative < 0.017 ng/mL (0.000-0.055) BW-Tck-V-Type Natriuretic Peptide 876 pg/mL (0-449) Total Protein 6.8 g/dL (6.4-8.2) Albumin 3.3 g/dL (3.4-5.0) Albumin/Globulin Ratio 0.9 (1.0-1.7) Triglycerides Level 63 mg/dL (0-150) Cholesterol Level 152 mg/dL (0-200) LDL Cholesterol, Calculated 70 mg/dL (0-100) VLDL Cholesterol, Calculated 13 mg/dL (0-40) Non-HDL Cholesterol Calculated 83 mg/dL (0-129) HDL Cholesterol 69 mg/dL (40-60) Cholesterol/HDL Ratio 2.2 Ethyl Alcohol Level < 10 mg/dL (0-10) Laboratory Tests Test 12/26/18 10:25 White Blood Count 5.2 x10^3/uL (4.0-11.0) Red Blood Count 4.97 x10^6/uL (4.30-5.70) Hemoglobin 14.4 g/dL (13.0-17.5) Hematocrit 43.6 % (39.0-53.0) Mean Corpuscular Volume 88 fL (79-100) Mean Corpuscular Hemoglobin 29 pg (25-35) Mean Corpuscular Hemoglobin Concent 33 g/dL (31-37) Red Cell Distribution Width 14.0 % (11.5-14.5) Platelet Count 182 x10^3/uL (140-400) Neutrophils (%) (Auto) 82 % (31-73) Lymphocytes (%) (Auto) 11 % (24-48) Monocytes (%) (Auto) 6 % (0-9) Eosinophils (%) (Auto) 0 % (0-3) Basophils (%) (Auto) 1 % (0-3) Neutrophils # (Auto) 4.2 x10^3/uL (1.8-7.7) Lymphocytes # (Auto) 0.6 x10^3/uL (1.0-4.8) Monocytes # (Auto) 0.3 x10^3/uL (0.0-1.1) Eosinophils # (Auto) 0.0 x10^3/uL (0.0-0.7) Basophils # (Auto) 0.0 x10^3/uL (0.0-0.2) Prothrombin Time 12.6 SEC (11.7-14.0) Prothromb Time International Ratio 1.0 (0.8-1.1) Sodium Level 143 mmol/L (136-145) Potassium Level 4.2 mmol/L (3.5-5.1) Chloride Level 105 mmol/L (98-107) Carbon Dioxide Level 28 mmol/L (21-32) Anion Gap 10 (6-14) Blood Urea Nitrogen 15 mg/dL (8-26) Creatinine 1.0 mg/dL (0.7-1.3) Estimated GFR (Cockcroft-Gault) 72.6 BUN/Creatinine Ratio 15 (6-20) Glucose Level 130 mg/dL (70-99) Calcium Level 9.4 mg/dL (8.5-10.1) Magnesium Level 1.7 mg/dL (1.8-2.4) Total Bilirubin 0.4 mg/dL (0.2-1.0) Aspartate Amino Transf (AST/SGOT) 17 U/L (15-37) Alanine Aminotransferase (ALT/SGPT) 20 U/L (16-63) Alkaline Phosphatase 93 U/L (46-116) Troponin I Quantitative < 0.017 ng/mL (0.000-0.055) AX-Zwj-P-Type Natriuretic Peptide 876 pg/mL (0-449) Total Protein 6.8 g/dL (6.4-8.2) Albumin 3.3 g/dL (3.4-5.0) Albumin/Globulin Ratio 0.9 (1.0-1.7) Triglycerides Level 63 mg/dL (0-150) Cholesterol Level 152 mg/dL (0-200) LDL Cholesterol, Calculated 70 mg/dL (0-100) VLDL Cholesterol, Calculated 13 mg/dL (0-40) Non-HDL Cholesterol Calculated 83 mg/dL (0-129) HDL Cholesterol 69 mg/dL (40-60) Cholesterol/HDL Ratio 2.2 Ethyl Alcohol Level < 10 mg/dL (0-10) VTE Prophylaxis Ordered VTE Prophylaxis Devices: Yes VTE Pharmacological Prophylaxi: Yes Assessment/Plan Assessment/Plan Chest pain rule out ACS CAD, hx cardiac stents total, compliant with meds Occasional etoh drinker Generalized encxirnf-[id number]-[id number] fall risk HTN, dyslipidemia - etc chronci stable NEw LBBB Dysphagia Plan, CVC bed, 2 midnights, cards consult, trend enzymes, echo, CHOIR SINGER eval PT OT ProcalAmine while nothing by mouth until CHOIR SINGER suyapa I have reconciled home meds okay to continue Fall risk Full code-I did verify with him at the ER RADHA KITCHEN MD Dec 26, 2018 14:10
--- NOTE | 2018-12-26 14:13 | EKG ---
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
[2018-12-26] MEDS ORDERED: LACTULOSE 20 GM/30 ML SOLUTION. PO PRN (14:15)
[2018-12-26] MEDS ORDERED: NITROGLYCERIN SUBLINGUAL 0.4 MG BOTTLE OF 25. SL SCH (14:15)
[2018-12-26] MEDS: AMINO AC 3%/ELECTROLYTE/GLYCER 1,000 ML IV SCH (14:15)
--- NOTE | 2018-12-26 14:28 | PHYS DOC ---
Past Medical History Past Medical History: CAD, Cancer, High Cholesterol, Hypertension, DC, Other Additional Past Medical Histor: lung ca hx 2000, prostate/colon cancer Past Surgical History: Appendectomy, Other Additional Past Surgical Histo: lobectomy, cardiac stents, back surgery Alcohol Use: None Drug Use: None Adult General Chief Complaint Chief Complaint: CHEST PAIN HPI HPI Patient is a 78 year old male presents with chest pain. He has had it since yesterday intermittent in nature in terms of severity although it has basically been there the entire time feels like pressure in the center of the chest radiates up into the lower neck and even under the tongue he feels that some. Feels similar prior DC pain worse with exertion and also feels some mild to moderate shortness of breath. Just overall does not feel well. He said the symptoms started when he was playing. Denies abdominal pain or vomiting at this time he did have abdominal pain he was seen here in the emergency room a few days ago and had a CT scan actually 2 CT scans in the last few days that ess entially showed no acute process. Review of Systems Review of Systems Constitutional: Denies fever or chills [] Eyes: Denies change in visual acuity, redness, or eye pain [] HENT: Denies nasal congestion or sore throat [] Respiratory: Musculoskeletal: Denies back pain or joint pain [] Integument: Denies rash or skin lesions [] Neurologic: Denies headache, focal weakness or sensory changes [] Endocrine: Denies polyuria or polydipsia [] All other systems were reviewed and found to be within normal limits, except as documented in this note. Current Medications Current Medications Current Medications Medications (Trade) Dose Ordered Sig/Serge Start Time Stop Time Status Last Admin Dose Admin Aspirin (Children'S Aspirin) 324 mg 1X ONCE 12/26/18 11:00 12/26/18 11:01 DC 12/26/18 10:37 324 MG Nitroglycerin (Nitrostat) 0.4 mg PRN Q5MIN PRN 12/26/18 10:30 12/26/18 10:37 0.4 MG Allergies Allergies Allergies Coded Allergies Type Severity Reaction Last Updated Verified No Known Drug Allergies 08/27/13 No Physical Exam Physical Exam Constitutional: Well developed, well nourished, no acute distress, non-toxic appearance. [] HENT: Normocephalic, atraumatic, bilateral external ears normal, oropharynx moist, no oral exudates, nose normal. [] Eyes: PERRLA, EOMI, conjunctiva normal, no discharge. [] Neck: Normal range of motion, no tenderness, supple, no stridor. [] Cardiovascular:Heart rate regular rhythm, somewhat difficult exam however I think there is a 2/6 systolic murmur Lungs & Thorax: Bilateral breath sounds clear to auscultation [] Abdomen: Bowel sounds normal, soft, mild nonspecific tenderness, no masses, no pulsatile masses. [] Skin: Warm, dry, no erythema, no rash. [] Back: No tenderness, no CVA tenderness. [] Extremities: No tenderness, no cyanosis, no clubbing, ROM intact, no edema. [] Neurologic: Alert and oriented X 3, normal motor function, normal sensory function, no focal deficits noted. [] Psychologic: Affect normal, judgement normal, mood normal. [] Current Patient Data Vital Signs Vital Signs Date Time Temp Pulse Resp B/P (MAP) Pulse Ox O2 Delivery O2 Flow Rate FiO2 12/26/18 11:39 86 19 99/59 (72) 98 Room Air 12/26/18 10:08 97.7 97.7 Lab Values Laboratory Tests Test 12/26/18 10:25 White Blood Count 5.2 x10^3/uL (4.0-11.0) Red Blood Count 4.97 x10^6/uL (4.30-5.70) Hemoglobin 14.4 g/dL (13.0-17.5) Hematocrit 43.6 % (39.0-53.0) Mean Corpuscular Volume 88 fL (79-100) Mean Corpuscular Hemoglobin 29 pg (25-35) Mean Corpuscular Hemoglobin Concent 33 g/dL (31-37) Red Cell Distribution Width 14.0 % (11.5-14.5) Platelet Count 182 x10^3/uL (140-400) Neutrophils (%) (Auto) 82 % (31-73) H Lymphocytes (%) (Auto) 11 % (24-48) L Monocytes (%) (Auto) 6 % (0-9) Eosinophils (%) (Auto) 0 % (0-3) Basophils (%) (Auto) 1 % (0-3) Neutrophils # (Auto) 4.2 x10^3/uL (1.8-7.7) Lymphocytes # (Auto) 0.6 x10^3/uL (1.0-4.8) L Monocytes # (Auto) 0.3 x10^3/uL (0.0-1.1) Eosinophils # (Auto) 0.0 x10^3/uL (0.0-0.7) Basophils # (Auto) 0.0 x10^3/uL (0.0-0.2) Prothrombin Time 12.6 SEC (11.7-14.0) Prothrombin Time INR 1.0 (0.8-1.1) Sodium Level 143 mmol/L (136-145) Potassium Level 4.2 mmol/L (3.5-5.1) Chloride Level 105 mmol/L (98-107) Carbon Dioxide Level 28 mmol/L (21-32) Anion Gap 10 (6-14) Blood Urea Nitrogen 15 mg/dL (8-26) Creatinine 1.0 mg/dL (0.7-1.3) Estimated GFR (Cockcroft-Gault) 72.6 BUN/Creatinine Ratio 15 (6-20) Glucose Level 130 mg/dL (70-99) H Calcium Level 9.4 mg/dL (8.5-10.1) Magnesium Level 1.7 mg/dL (1.8-2.4) L Total Bilirubin 0.4 mg/dL (0.2-1.0) Aspartate Amino Transferase (AST) 17 U/L (15-37) Alanine Aminotransferase (ALT) 20 U/L (16-63) Alkaline Phosphatase 93 U/L (46-116) Troponin I Quantitative < 0.017 ng/mL (0.000-0.055) XA-Edw-G-Type Natriuretic Peptide 876 pg/mL (0-449) H Total Protein 6.8 g/dL (6.4-8.2) Albumin 3.3 g/dL (3.4-5.0) L Albumin/Globulin Ratio 0.9 (1.0-1.7) L Triglycerides Level 63 mg/dL (0-150) Cholesterol Level 152 mg/dL (0-200) LDL Cholesterol, Calculated 70 mg/dL (0-100) VLDL Cholesterol, Calculated 13 mg/dL (0-40) Non-HDL Cholesterol Calculated 83 mg/dL (0-129) HDL Cholesterol 69 mg/dL (40-60) H Cholesterol/HDL Ratio 2.2 Ethyl Alcohol Level < 10 mg/dL (0-10) Laboratory Tests 12/26/18 10:25 Laboratory Tests 12/26/18 10:25 EKG EKG []EKG shows a sinus rhythm there is a bundle branch block pattern compared to EKG dated December 24 this is similar this is new compared to last EKG from 2018. Second EKG in our system today was actually quite similar overall. No ischemia in light of the bundle branch block Radiology/Procedures Radiology/Procedures [] Impressions: Impression: 1. No acute cardiopulmonary process. 2. Postop changes right upper lobectomy with pleural parenchymal scarring, similar compared to prior. Electronically signed by: Erasto Srinivasan DO (12/26/2018 10:54 AM) [id number] DICTATED and SIGNED BY: ERASTO SRINIVASAN DO DATE: 12/26/18 1054 Course & Med Decision Making Course & Med Decision Making Pertinent Labs and Imaging studies reviewed. (See chart for details) []This is a 78 show male patient with chest pain known coronary artery disease resulting with chest pain heart score is a H 1 E 1 A 2 R 2 T 0 REQUIRES ADMIT D/W HOSITALIST WELL MOISES JUÁREZ. PT CP FREE AFTER NITRO IN THE ER. DOES NOT SOUND LIKE PER OR DISSECTION TO ME Dragon Disclaimer Dragon Disclaimer This electronic medical record was generated, in whole or in part, using a voice recognition dictation system. Departure Departure Impression: Primary Impression: Acute chest pain Disposition: ADMITTED INPATIENT Admitting Physician: LINDSEY Condition: STABLE Referrals: NATASHA BANSAL MD (PCP) VELASQUEZ MARIN MD Dec 26, 2018 14:28
--- NOTE | 2018-12-26 14:55 | PDOC2 ---
BATSHEVA GOLDMAN ELECTRONIC PAGE MAKEUP SYSTEM OPERATOR 12/26/18 1455: CARDIAC CONSULT DATE OF CONSULT Date of Consult DATE: 12/26/18 TIME: 14:41 REASON FOR CONSULT Reason for Consult: Chest pain REFERRING PHYSICIAN Referring Physician: Eliu SOURCE Source: Chart review, Patient HISTORY OF PRESENT ILLNESS HISTORY OF PRESENT ILLNESS This is a pleasant 78 yo male admitted for complains of chest pain. Reports that he has been having this mid chest pain in the last 3 days. Positive for nausea, dizziness and jaw discomfort. He has been seen in our office last yr and so far has not followed up. He push mows his yard and he has been stopping every 5-10 minutes due to exertional CP and FRAGOSO. Verbalized compliance with his meds including plavix and ASA. No peripheral edema, orthopnea. PAST MEDICAL HISTORY Past Medical History Cardiovascular: AFIB (paroxysmal), CAD, HTN, Hyperlipidemia Pulmonary: COPD GI: Constipation Heme/Onc: Cancer (lung) Musculoskeletal: low back pain, Osteoarthritis, Other (cervical stenosis) Rheumatologic: No pertinent hx Infectious disease: No pertinent hx Renal/: No pertinent hx Endocrine: No pertinent hx Dermatology: No pertinent hx PAST SURGICAL HISTORY Past Surgical History Arthroscopy (left shoulder fracture repair, left knee fracture repair, right hand fracture repair), Cataract Removal, Other (RUL lobectomy/VATs; back surgery; PCIstent to RCA 2010, PCI/TATE to LAD and pTCA of RCA stent in 11/2015; recent colonoscopy with possible polypectomies) FAMILY HISTORY Family History Heart Disease (mother and father) SOCIAL HISTORY Smoke: <1 pack per day (quit 3 days ago) ALCOHOL: none Drugs: None Lives: Alone CURRENT MEDICATIONS CURRENT MEDICATIONS Current Medications Medications (Trade) Dose Ordered Sig/Serge Route PRN Reason Start Time Stop Time Status Last Admin Dose Admin Nitroglycerin (Nitrostat) 0.4 mg PRN Q5MIN PRN SL CHEST PAIN 12/26/18 10:30 12/26/18 10:37 Aspirin (Children'S Aspirin) 324 mg 1X ONCE PO 12/26/18 11:00 12/26/18 11:01 DC 12/26/18 10:37 ALLERGIES ALLERGIES: Coded Allergies: No Known Drug Allergies (Unverified , 08/27/13) ROS Review of System 14 point ROS evalauted with pertinent positives noted per HPI PHYSICAL EXAM General: Alert, Oriented X3, Cooperative, No acute distress HEENT: Atraumatic, Mucous membr. moist/pink Lungs: Clear to auscultation, Normal air movement Heart: Regular rate (SR), Normal S1, Normal S2, Other (S4; 3/6 systolic murmur to apex) Abdomen: Soft, No tenderness Extremities: No cyanosis, No edema Skin: No breakdown, No significant lesion Neuro: Normal speech, Sensation intact Psych/Mental Status: Mental status NL, Mood NL MUSCULOSKELETAL: Osteoarthritic changes both hands VITALS/I&O VITALS/I&O: Vital Signs Date Time Temp Pulse Resp B/P (MAP) Pulse Ox O2 Delivery O2 Flow Rate FiO2 12/26/18 13:10 84 18 105/57 (73) 98 Room Air 12/26/18 10:08 97.7 97.7 LABS Lab: Laboratory Tests Test 12/26/18 10:25 White Blood Count 5.2 x10^3/uL (4.0-11.0) Red Blood Count 4.97 x10^6/uL (4.30-5.70) Hemoglobin 14.4 g/dL (13.0-17.5) Hematocrit 43.6 % (39.0-53.0) Mean Corpuscular Volume 88 fL (79-100) Mean Corpuscular Hemoglobin 29 pg (25-35) Mean Corpuscular Hemoglobin Concent 33 g/dL (31-37) Red Cell Distribution Width 14.0 % (11.5-14.5) Platelet Count 182 x10^3/uL (140-400) Neutrophils (%) (Auto) 82 % (31-73) H Lymphocytes (%) (Auto) 11 % (24-48) L Monocytes (%) (Auto) 6 % (0-9) Eosinophils (%) (Auto) 0 % (0-3) Basophils (%) (Auto) 1 % (0-3) Neutrophils # (Auto) 4.2 x10^3/uL (1.8-7.7) Lymphocytes # (Auto) 0.6 x10^3/uL (1.0-4.8) L Monocytes # (Auto) 0.3 x10^3/uL (0.0-1.1) Eosinophils # (Auto) 0.0 x10^3/uL (0.0-0.7) Basophils # (Auto) 0.0 x10^3/uL (0.0-0.2) Prothrombin Time 12.6 SEC (11.7-14.0) Prothrombin Time INR 1.0 (0.8-1.1) Sodium Level 143 mmol/L (136-145) Potassium Level 4.2 mmol/L (3.5-5.1) Chloride Level 105 mmol/L (98-107) Carbon Dioxide Level 28 mmol/L (21-32) Anion Gap 10 (6-14) Blood Urea Nitrogen 15 mg/dL (8-26) Creatinine 1.0 mg/dL (0.7-1.3) Estimated GFR (Cockcroft-Gault) 72.6 BUN/Creatinine Ratio 15 (6-20) Glucose Level 130 mg/dL (70-99) H Calcium Level 9.4 mg/dL (8.5-10.1) Magnesium Level 1.7 mg/dL (1.8-2.4) L Total Bilirubin 0.4 mg/dL (0.2-1.0) Aspartate Amino Transferase (AST) 17 U/L (15-37) Alanine Aminotransferase (ALT) 20 U/L (16-63) Alkaline Phosphatase 93 U/L (46-116) Troponin I Quantitative < 0.017 ng/mL (0.000-0.055) YV-Zkt-G-Type Natriuretic Peptide 876 pg/mL (0-449) H Total Protein 6.8 g/dL (6.4-8.2) Albumin 3.3 g/dL (3.4-5.0) L Albumin/Globulin Ratio 0.9 (1.0-1.7) L Triglycerides Level 63 mg/dL (0-150) Cholesterol Level 152 mg/dL (0-200) LDL Cholesterol, Calculated 70 mg/dL (0-100) VLDL Cholesterol, Calculated 13 mg/dL (0-40) Non-HDL Cholesterol Calculated 83 mg/dL (0-129) HDL Cholesterol 69 mg/dL (40-60) H Cholesterol/HDL Ratio 2.2 Ethyl Alcohol Level < 10 mg/dL (0-10) Laboratory Tests 12/26/18 10:25 Laboratory Tests 12/26/18 10:25 ASSESSMENT/PLAN ASSESSMENT/PLAN 1. Chest pain: UA features with new LBBB first noted end of nov 2018 in ED due to abd pain (unremarkable testing) 2. CAD: prior stents 3. Noncompliant with follow up 4. HTN: controlled 5. HLP 6. COPD with tobaccoism: quit 3 days ago 7. Hx of lung CA: in remission with RUL lobectomy Recommendations 1. Continue secondary prevention measures 2. LHC today, risks and benefits discussed and agreeable to proceed. 3. Will review meds further after LHC. 4. TTE, TSH, lipids GARTH RODRIGUEZ MD 12/26/18 2223: CARDIAC CONSULT ASSESSMENT/PLAN ASSESSMENT/PLAN Pt. seen and examined. Agree with above APPLIANCE SERVICER note. 78 yo male presenting with recurrent chest pain. Still smokes. LHC showed ISR of previous RCA stents, s/p ptca - successful aggressive med tx with smoking cessation. thanks. Plan for DC tomorrow. BATSHEVA GOLDMAN APRN Dec 26, 2018 14:55 GARTH RODRIGUEZ MD Dec 26, 2018 22:23
[2018-12-26] MEDS: PROPAFENONE 150 MG TABLET. PO SCH ×2 (15:00→22:06)
[2018-12-26] MEDS ORDERED: LIDOCAINE 1% PF 2 ML VIAL. ONE (15:06)
[2018-12-26] MEDS ORDERED: VERAPAMIL 5 MG/2 ML VIAL. ONE (15:18)
[2018-12-26] MEDS ORDERED: fentaNYL PF VIAL 100 MCG/2 ML VIAL ONE (15:18)
[2018-12-26] MEDS ORDERED: NITROGLYCERIN 200 MCG/2 ML SYRINGE FOR CATH/VASC LAB. ONE (15:18)
[2018-12-26] MEDS ORDERED: HEPARIN for IV BOLUS 10,000 UNIT/10 ML VIAL. ONE (15:18)
[2018-12-26] MEDS ORDERED: MIDAZOLAM HCL/PF 2 MG/2 ML VIAL. ONE (15:18)
[2018-12-26] MEDS ORDERED: IODIXANOL 320 MG/ML 100 ML VIAL. ONE (15:48)
[2018-12-26] MEDS ORDERED: TICAGRELOR 90 MG TABLET. ONE (16:02)
[2018-12-26] MEDS ORDERED: TIROFIBAN 12.5MG -0.9% NS 250 ML IV ONE (16:02)
[2018-12-26] MEDS ORDERED: HEPARIN for IV BOLUS 10,000 UNIT/10 ML VIAL. IART ONE (16:15)
[2018-12-26] MEDS ORDERED: TICAGRELOR 90 MG TABLET. PO ONE (16:15)
[2018-12-26] MEDS ORDERED: VERAPAMIL 5 MG/2 ML VIAL. IART ONE (16:15)
[2018-12-26] MEDS ORDERED: MIDAZOLAM HCL/PF 2 MG/2 ML VIAL. IV ONE (16:15)
[2018-12-26] MEDS ORDERED: NITROGLYCERIN 200 MCG/2 ML SYRINGE FOR CATH/VASC LAB. IART ONE (16:15)
[2018-12-26] MEDS ORDERED: LIDOCAINE 1% PF 2 ML VIAL. INJ ONE (16:15)
[2018-12-26] MEDS ORDERED: IODIXANOL 320 MG/ML 100 ML VIAL. IART ONE (16:15)
[2018-12-26] MEDS ORDERED: HEPARIN for IV BOLUS 10,000 UNIT/10 ML VIAL. IV ONE (16:15)
[2018-12-26] MEDS ORDERED: TIROFIBAN 12.5MG -0.9% NS 250 ML IV PRN (16:15)
[2018-12-26] MEDS ORDERED: fentaNYL PF VIAL 100 MCG/2 ML VIAL IV ONE (16:15)
--- NOTE | 2018-12-26 19:25 | NUR ---
Assessment completed vss poc explained pt forgetful. Pt reoriented to surroundings. Pt c/o pain will medicate and continue to monitor pt. call light in reach bed alarm set
[2018-12-26] MEDS ORDERED: TAMSULOSIN 0.4 MG CAP.ER.24H. PO SCH (21:00)
[2018-12-26] MEDS ORDERED: ATORVASTATIN CALCIUM 40 MG TABLET. PO SCH (21:00)
[2018-12-26] MEDS: oxyCODONE/APAP 10/325 1 TAB TABLET PO PRN (21:14)
[2018-12-26] MEDS: TICAGRELOR 90 MG TABLET. PO SCH (23:30)
[2018-12-27] MEDS: AMINO AC 3%/ELECTROLYTE/GLYCER 1,000 ML IV SCH (02:45)
[2018-12-27 03:35] VITALS: BP 110/58
[2018-12-27 07:00] VITALS: BP 117/59
[2018-12-27] MEDS ORDERED: ASPIRIN ENTERIC COATED 81 MG TABLET.DR. PO SCH (08:00)
[2018-12-27] MEDS ORDERED: DOCUSATE SODIUM 100 MG CAPSULE. PO SCH (09:00)
[2018-12-27] MEDS ORDERED: ASPIRIN 325 MG TABLET PO SCH (09:00)
[2018-12-27] MEDS ORDERED: CLOPIDOGREL BISULFATE 75 MG TABLET PO SCH (09:00)
[2018-12-27] MEDS ORDERED: METOPROLOL SUCC 24HR ER 25 MG TAB.ER.24H. PO SCH ×2 (09:00→12:00)
[2018-12-27] MEDS: TICAGRELOR 90 MG TABLET. PO SCH (09:23)
[2018-12-27] MEDS: PROPAFENONE 150 MG TABLET. PO SCH (09:23)
[2018-12-27] MEDS: oxyCODONE/APAP 10/325 1 TAB TABLET PO PRN ×2 (09:27→16:01)
[2018-12-27 10:15] VITALS: BP 124/49
--- NOTE | 2018-12-27 10:32 | PDOC ---
PROGRESS NOTES History of Present Illness History of Present Illness VTE Prophylaxis Ordered VTE Prophylaxis Devices: Yes VTE Pharmacological Prophylaxi: Yes discharge dx Chest pain ///ACS CAD, hx cardiac stents total, compliant with meds Occasional etoh drinker Generalized weakness-geriatric- high fall risk HTN, dyslipidemia - etc chronci stable NEw LBBB Dysphagia Plan, admit 2 midnights, cards consult, trend enzymes, echo, TECHNICIAN AUTOMATIC eval PT OT ProcalAmine while nothing by mouth until TECHNICIAN AUTOMATIC eval home meds Fall risk Full code continue toprol. Stop ryhtmol as class 1C antiarrhythmic is contraindicated with his heart disease. 32 MIN PT EXAM, CHART REVIEW, d/c planning > 50% OF TIME SPENT WITH EXAM, CHART REVIEW, PT CARE COORDINATION Vitals Vitals Vital Signs Date Time Temp Pulse Resp B/P (MAP) Pulse Ox O2 Delivery O2 Flow Rate FiO2 12/27/18 10:15 98.0 71 16 124/49 (74) 96 Room Air 98.0 Physical Exam General: Alert, Oriented X3, Cooperative, No acute distress Heart: Regular rate (SR), Normal S1, Normal S2, Other (S4; 3/6 systolic murmur to apex) Abdomen: Soft, No tenderness Extremities: No cyanosis, No edema Skin: No breakdown, No significant lesion Assessment and Plan Assessmemt and Plan Problems Medical Problems: (1) Acute chest pain Status: Acute (2) Benign essential hypertension Status: Chronic (3) CAD (coronary artery disease) Status: Chronic (4) COPD (chronic obstructive pulmonary disease) Status: Chronic (5) Hyperlipidemia Status: Chronic Comment Review of Relevant I have reviewed the following items jj (where applicable) has been applied. Labs Laboratory Tests Test 12/26/18 10:25 White Blood Count 5.2 x10^3/uL (4.0-11.0) Red Blood Count 4.97 x10^6/uL (4.30-5.70) Hemoglobin 14.4 g/dL (13.0-17.5) Hematocrit 43.6 % (39.0-53.0) Mean Corpuscular Volume 88 fL (79-100) Mean Corpuscular Hemoglobin 29 pg (25-35) Mean Corpuscular Hemoglobin Concent 33 g/dL (31-37) Red Cell Distribution Width 14.0 % (11.5-14.5) Platelet Count 182 x10^3/uL (140-400) Neutrophils (%) (Auto) 82 % (31-73) Lymphocytes (%) (Auto) 11 % (24-48) Monocytes (%) (Auto) 6 % (0-9) Eosinophils (%) (Auto) 0 % (0-3) Basophils (%) (Auto) 1 % (0-3) Neutrophils # (Auto) 4.2 x10^3/uL (1.8-7.7) Lymphocytes # (Auto) 0.6 x10^3/uL (1.0-4.8) Monocytes # (Auto) 0.3 x10^3/uL (0.0-1.1) Eosinophils # (Auto) 0.0 x10^3/uL (0.0-0.7) Basophils # (Auto) 0.0 x10^3/uL (0.0-0.2) Prothrombin Time 12.6 SEC (11.7-14.0) Prothromb Time International Ratio 1.0 (0.8-1.1) Sodium Level 143 mmol/L (136-145) Potassium Level 4.2 mmol/L (3.5-5.1) Chloride Level 105 mmol/L (98-107) Carbon Dioxide Level 28 mmol/L (21-32) Anion Gap 10 (6-14) Blood Urea Nitrogen 15 mg/dL (8-26) Creatinine 1.0 mg/dL (0.7-1.3) Estimated GFR (Cockcroft-Gault) 72.6 BUN/Creatinine Ratio 15 (6-20) Glucose Level 130 mg/dL (70-99) Calcium Level 9.4 mg/dL (8.5-10.1) Magnesium Level 1.7 mg/dL (1.8-2.4) Total Bilirubin 0.4 mg/dL (0.2-1.0) Aspartate Amino Transf (AST/SGOT) 17 U/L (15-37) Alanine Aminotransferase (ALT/SGPT) 20 U/L (16-63) Alkaline Phosphatase 93 U/L (46-116) Troponin I Quantitative < 0.017 ng/mL (0.000-0.055) KM-Hrd-R-Type Natriuretic Peptide 876 pg/mL (0-449) Total Protein 6.8 g/dL (6.4-8.2) Albumin 3.3 g/dL (3.4-5.0) Albumin/Globulin Ratio 0.9 (1.0-1.7) Triglycerides Level 63 mg/dL (0-150) Cholesterol Level 152 mg/dL (0-200) LDL Cholesterol, Calculated 70 mg/dL (0-100) VLDL Cholesterol, Calculated 13 mg/dL (0-40) Non-HDL Cholesterol Calculated 83 mg/dL (0-129) HDL Cholesterol 69 mg/dL (40-60) Cholesterol/HDL Ratio 2.2 Ethyl Alcohol Level < 10 mg/dL (0-10) Medications Current Medications Nitroglycerin (Nitrostat) 0.4 mg PRN Q5MIN PRN SL CHEST PAIN Last administered on 12/26/18at 10:37; Start 12/26/18 at 10:30; Stop 12/26/18 at 14:50; Status DC Aspirin (Children'S Aspirin) 324 mg 1X ONCE PO Last administered on 12/26/18at 10:37; Start 12/26/18 at 11:00; Stop 12/26/18 at 11:01; Status DC Amino Acids/ Glycerin/ Electrolytes 1,000 ml @ 80 mls/hr [id number] IV ; Start 12/26/18 at 14:15 Aspirin (Magdiel Aspirin) 325 mg DAILY PO ; Start 12/27/18 at 09:00; Stop 12/26/18 at 22:28; Status DC Atorvastatin Calcium (Lipitor) 80 mg HS PO Last administered on 12/26/18at 21:07; Start 12/26/18 at 21:00 Clopidogrel Bisulfate (Plavix) 75 mg DAILY PO ; Start 12/27/18 at 09:00; Stop 12/26/18 at 22:28; Status DC Docusate Sodium (Colace) 100 mg DAILY PO Last administered on 12/27/18at 09:23; Start 12/27/18 at 09:00 Lactulose (Lactulose) 10 gm PRN DAILY PRN PO CONSTIPATION; Start 12/26/18 at 14:15 Metoprolol Succinate (Toprol Xl) 25 mg DAILY PO ; Start 12/27/18 at 09:00; Stop 12/26/18 at 19:16; Status DC Nitroglycerin (Nitrostat) 0.4 mg PRN Q5MIN SL ; Start 12/26/18 at 14:15; Stop 12/26/18 at 14:50; Status DC Oxycodone/ Acetaminophen (Percocet 10/325) 1 tab PRN TID PRN PO back pain Last administered on 12/27/18at 09:27; Start 12/26/18 at 14:15 Propafenone HCl (Rythmol) 150 mg BID PO Last administered on 12/27/18at 09:23; Start 12/26/18 at 15:00 Tamsulosin HCl (Flomax) 0.4 mg HS PO Last administered on 12/26/18at 21:07; Start 12/26/18 at 21:00 Nitroglycerin (Nitrostat) 0.4 mg PRN Q5MIN PRN SL CHEST PAIN; Start 12/26/18 at 15:00 Lidocaine HCl (Xylocaine-Mpf 1% 2ml Vial) 2 ml STK-MED ONCE .ROUTE ; Start 12/26/18 at 15:06; Stop 12/26/18 at 15:06; Status DC Heparin Sodium/ Sodium Chloride 1,000 ml @ As Directed STK-MED ONCE .ROUTE ; Start 12/26/18 at 15:06; Stop 12/26/18 at 15:07; Status DC Fentanyl Citrate (Fentanyl 2ml Vial) 100 mcg STK-MED ONCE .ROUTE ; Start 12/26/18 at 15:18; Stop 12/26/18 at 15:18; Status DC Midazolam HCl (Versed) 2 mg STK-MED ONCE .ROUTE ; Start 12/26/18 at 15:18; Stop 12/26/18 at 15:19; Status DC Heparin Sodium (Porcine) (Heparin Sodium) 10,000 unit STK-MED ONCE .ROUTE ; Start 12/26/18 at 15:18; Stop 12/26/18 at 15:19; Status DC Verapamil HCl (Verapamil) 5 mg STK-MED ONCE .ROUTE ; Start 12/26/18 at 15:18; Stop 12/26/18 at 15:19; Status DC Nitroglycerin (Nitroglycerin) 200 mcg STK-MED ONCE .ROUTE ; Start 12/26/18 at 15:18; Stop 12/26/18 at 15:19; Status DC Iodixanol (Visipaque 320) 100 ml STK-MED ONCE .ROUTE ; Start 12/26/18 at 15:48; Stop 12/26/18 at 15:48; Status DC Ticagrelor (Brilinta) 90 mg STK-MED ONCE .ROUTE ; Start 12/26/18 at 16:02; Stop 12/26/18 at 16:02; Status DC Tirofiban/Sodium Chloride 250 ml @ As Directed STK-MED ONCE IV ; Start 12/26/18 at 16:02; Stop 12/26/18 at 16:02; Status DC Lidocaine HCl (Xylocaine-Mpf 1% 2ml Vial) 2 ml 1X ONCE INJ ; Start 12/26/18 at 16:15; Stop 12/26/18 at 16:24; Status DC Nitroglycerin (Nitroglycerin) 200 mcg 1X ONCE IART Last administered on 12/26/18at 16:37; Start 12/26/18 at 16:15; Stop 12/26/18 at 16:23; Status DC Verapamil HCl (Verapamil) 2.5 mg 1X ONCE IART Last administered on 12/26/18at 16:37; Start 12/26/18 at 16:15; Stop 12/26/18 at 16:23; Status DC Heparin Sodium (Porcine) (Heparin Sodium) 2,500 unit 1X ONCE IART Last administered on 12/26/18at 16:37; Start 12/26/18 at 16:15; Stop 12/26/18 at 16:23; Status DC Heparin Sodium/ Sodium Chloride (HEPARIN for ARTERIAL LINE FLUSH) 1,000 unit 1X ONCE IART Last administered on 12/26/18at 16:37; Start 12/26/18 at 16:15; Stop 12/26/18 at 16:23; Status DC Midazolam HCl (Versed) 2 mg 1X ONCE IV Last administered on 12/26/18at 16:37; Start 12/26/18 at 16:15; Stop 12/26/18 at 16:23; Status DC Fentanyl Citrate (Fentanyl 2ml Vial) 100 mcg 1X ONCE IV ; Start 12/26/18 at 16:15; Stop 12/26/18 at 16:23; Status DC Iodixanol (Visipaque 320) 100 ml 1X ONCE IART ; Start 12/26/18 at 16:15; Stop 12/26/18 at 16:23; Status DC Ticagrelor (Brilinta) 180 mg 1X ONCE PO Last administered on 12/26/18 16:37; Start 12/26/18 at 16:15; Stop 12/26/18 at 16:23; Status DC Heparin Sodium (Porcine) (Heparin Sodium) 4,000 unit 1X ONCE IV Last administered on 12/26/18 16:37; Start 12/26/18 at 16:15; Stop 12/26/18 at 16:23; Status DC Tirofiban/Sodium Chloride 250 ml @ 0 mls/hr CONT PRN IV PER PROTOCOL Last administered on 12/26/18 16:37; Start 12/26/18 at 16:15; Stop 12/26/18 at 16:38; Status DC Ticagrelor (Brilinta) 90 mg BID PO Last administered on 12/27/18 09:23; Start 12/26/18 at 23:00 Aspirin (Ecotrin) 81 mg [id number] PO Last administered on 12/27/18at 09:23; Sta rt 12/27/18 at 08:00 Active Scripts Active Lactulose 20 Gm/30 Ml Solution 10 Gm PO DAILY PRN Reported Flomax (Tamsulosin Hcl) 0.4 Mg Cap.er.24h 0.4 Mg PO HS Percocet 10-325 Mg Tablet (Oxycodone/Acetaminophen) 1 Each Tablet 1 Tab PO Q4-6HRS PRN Clopidogrel (Clopidogrel Bisulfate) 75 Mg Tablet 75 Mg PO DAILY Aspirin 325 Mg Tablet 325 Mg PO DAILY Propafenone Hcl 150 Mg Tablet 150 Mg PO BID Atorvastatin Calcium 40 Mg Tablet 80 Mg PO HS Nitrostat (Nitroglycerin) 0.4 Mg Tab.subl 0.4 Mg SL PRN Q5MIN Vitals/I & O Vital Sign - Last 24 Hours 12/26/18 12/26/18 12/26/18 12/26/18 10:37 10:41 11:09 11:39 Pulse 97 125 97 86 Resp B/P (MAP) 115/66 105/57 (73) 102/57 (72) 99/59 (72) Pulse Ox 96 98 98 O2 Delivery Room Air Room Air Room Air 12/26/18 12/26/18 12/26/18 12/26/18 12:09 12:39 13:10 13:40 Pulse 82 75 84 70 Resp 18 19 18 16 B/P (MAP) 100/69 (79) 111/57 (75) 105/57 (73) 131/63 (85) Pulse Ox 99 97 98 99 O2 Delivery Room Air Room Air Room Air 12/26/18 12/26/18 12/26/18 12/26/18 14:10 14:40 15:13 15:34 Temp 97.7 97.7 Pulse 72 72 88 Resp 16 16 12 B/P (MAP) 126/64 (84) 115/58 (77) 114/64 (81) Pulse Ox 99 99 98 O2 Delivery Room Air Room Air Room Air 12/26/18 12/26/18 12/26/18 12/26/18 16:28 16:37 16:45 17:00 Pulse 69 69 72 64 Resp 14 B/P (MAP) 123/56 130/53 (78) 111/57 (75) Pulse Ox 99 O2 Delivery Room Air 12/26/18 12/26/18 12/26/18 12/26/18 17:15 17:30 18:00 18:30 Pulse 64 74 68 80 B/P (MAP) 114/58 (76) 101/62 (75) 108/56 (73) 107/57 (74) 12/26/18 12/26/18 12/26/18 12/26/18 19:25 19:25 20:50 21:14 Temp 97.9 97.9 Pulse 74 67 Resp 18 16 16 B/P (MAP) 97/55 (69) 101/53 (69) Pulse Ox 98 99 99 O2 Delivery Room Air Room Air Room Air Room Air 12/26/18 12/26/18 12/26/18 12/27/18 22:06 22:45 23:27 03:35 Temp 97.8 97.5 97.8 97.5 Pulse 66 64 68 Resp 18 18 18 B/P (MAP) 104/62 109/58 (75) 110/58 (75) Pulse Ox 98 97 99 O2 Delivery Room Air Room Air Room Air 12/27/18 12/27/18 12/27/18 12/27/18 07:00 08:11 09:23 09:27 Temp 97.9 97.9 Pulse 68 68 Resp 14 B/P (MAP) 117/59 (78) 117/59 Pulse Ox 100 99 O2 Delivery Room Air Room Air Room Air 12/27/18 10:15 Temp 98.0 98.0 Pulse 71 Resp 16 B/P (MAP) 124/49 (74) Pulse Ox 96 O2 Delivery Room Air Intake and Output 12/26/18 12/26/18 12/27/18 15:00 23:00 07:00 Intake Total 120 ml 420 ml Output Total 150 ml 100 ml Balance -30 ml 320 ml DAVE EDWARDS MD Dec 27, 2018 10:32
--- NOTE | 2018-12-27 11:57 | PDOC ---
BATSHEVA GOLDMAN AUTO OVERHAULER 12/27/18 1157: CARDIO Progress Notes Date and Time Date of Service 12/27/2018 Time of Evaluation 1130 Subjective Subjective: No Chest Pain, No shortness of breath, No Palpitations Vitals Vitals Vital Signs Date Time Temp Pulse Resp B/P (MAP) Pulse Ox O2 Delivery O2 Flow Rate FiO2 12/27/18 10:15 98.0 71 16 124/49 (74) 96 Room Air 98.0 Weight Weight [ ] Input and Output Intake and Output Intake and Output 12/27/18 07:00 Intake Total 540 ml Output Total 250 ml Balance 290 ml Intake Oral 540 ml Output Urine Total 250 ml Physical Exam HEENT: Neck Supple W Full Motion Chest: Symmetric LUNGS: Clear to Auscultation Heart: S1S2, RRR (SR) Abdomen: Soft N/T Extremities: No Calf Tenderness Neurology: alert, oriented, follow commands Assessment Assessment 1. UA: S/P PTCA for ISR to RCA 2. CAD: prior stents 3. Noncompliant with follow up 4. HTN: controlled 5. HLP 6. COPD with tobaccoism: quit 3 days ago 7. Hx of lung CA: in remission with RUL lobectomy Recommendations 1. Continue secondary prevention measures. ASA/brilinta 2. TTE pending 3. Remote hx of PAFIB. No afib from last MCOT and no AFIB episodes as an inpt. Will continue toprol. Stop ryhtmol as class 1C antiarrhythmic is contraindicated with his heart disease. 4. Cardiac rehab. Discussed compliance. Smoking cessation WEN MORALES MD 12/28/18 0916: CARDIO Progress Notes Assessment Assessment Patient seen and examined 12/27/18. Agree with PERSONAL LINES SALES REP's assessment and plan. s/p PTCA to ISR RCA is presently chest pain-free Continue current medical regimen and follow-up with our office in 1 month Referral for cardiac rehabilitation BATSHEVA GOLDMAN APRN Dec 27, 2018 11:57 WEN MORALES MD Dec 28, 2018 09:16
[2018-12-27] MEDS ORDERED: MAGNESIUM OXIDE 400 MG TABLET PO SCH (12:00)
[2018-12-27] MEDS ORDERED: BARIUM SULFATE 40% (APPLE) 148 GM PWD. PO ONE (12:30)
--- NOTE | 2018-12-27 13:04 | NUR ---
SS following for discharge planning. SS reviewed pt chart. Pt is from home and is currently on room air. PT/OT evaluated and recommended home independent. No discharge needs noted at this time. SS will continue to follow for discharge planning.
[2018-12-27 14:14] VITALS: BP 119/62
--- NOTE | 2018-12-27 15:34 | PDOC3 ---
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 Stop ryhtmol as class 1C antiarrhythmic is contraindicated with his heart disease. 32 MIN PT EXAM, CHART REVIEW, d/c planning > 50% OF TIME SPENT WITH EXAM, CHART REVIEW, PT CARE COORDINATION Vitals Vitals Vital Signs Date Time Temp Pulse Resp B/P (MAP) Pulse Ox O2 Delivery O2 Flow Rate FiO2 12/27/18 10:15 98.0 71 16 124/49 (74) 96 Room Air 98.0 Physical Exam General: Alert, Oriented X3, Cooperative, No acute distress Heart: Regular rate (SR), Normal S1, Normal S2, Other (S4; 3/6 systolic murmur to apex) Abdomen: Soft, No tenderness Extremities: No cyanosis, No edema Skin: No breakdown, No significant lesion FINAL DIAGNOSIS Problems Medical Problems: (1) Acute chest pain Status: Acute (2) Benign essential hypertension Status: Chronic (3) CAD (coronary artery disease) Status: Chronic (4) COPD (chronic obstructive pulmonary disease) Status: Chronic (5) Hyperlipidemia Status: Chronic Brief Hospital Course Mr. Suh is a 78 old [sex] who presented with [ANGINA ] CONDITION AT DISCHARGE: Improved Discharge Medications Current Medications Nitroglycerin (Nitrostat) 0.4 mg PRN Q5MIN PRN SL CHEST PAIN Last administered on 12/26/18at 10:37; Start 12/26/18 at 10:30; Stop 12/26/18 at 14:50; Status DC Aspirin (Children'S Aspirin) 324 mg 1X ONCE PO Last administered on 12/26/18at 10:37; Start 12/26/18 at 11:00; Stop 12/26/18 at 11:01; Status DC Amino Acids/ Glycerin/ Electrolytes 1,000 ml @ 80 mls/hr [id number] IV ; Start 12/26/18 at 14:15 Aspirin (Magdiel Aspirin) 325 mg DAILY PO ; Start 12/27/18 at 09:00; Stop 12/26/18 at 22:28; Status DC Atorvastatin Calcium (Lipitor) 80 mg HS PO Last administered on 12/26/18at 21:07; Start 12/26/18 at 21:00 Clopidogrel Bisulfate (Plavix) 75 mg DAILY PO ; Start 12/27/18 at 09:00; Stop 12/26/18 at 22:28; Status DC Docusate Sodium (Colace) 100 mg DAILY PO Last administered on 12/27/18at 09:23; Start 12/27/18 at 09:00 Lactulose (Lactulose) 10 gm PRN DAILY PRN PO CONSTIPATION; Start 12/26/18 at 14:15 Metoprolol Succinate (Toprol Xl) 25 mg DAILY PO ; Start 12/27/18 at 09:00; Stop 12/26/18 at 19:16; Status DC Nitroglycerin (Nitrostat) 0.4 mg PRN Q5MIN SL ; Start 12/26/18 at 14:15; Stop 12/26/18 at 14:50; Status DC Oxycodone/ Acetaminophen (Percocet 10/325) 1 tab PRN TID PRN PO back pain Last administered on 12/27/18at 09:27; Start 12/26/18 at 14:15 Propafenone HCl (Rythmol) 150 mg BID PO Last administered on 12/27/18at 09:23; Start 12/26/18 at 15:00; Stop 12/27/18 at 11:52; Status DC Tamsulosin HCl (Flomax) 0.4 mg HS PO Last administered on 12/26/18at 21:07; Start 12/26/18 at 21:00 Nitroglycerin (Nitrostat) 0.4 mg PRN Q5MIN PRN SL CHEST PAIN; Start 12/26/18 at 15:00 Lidocaine HCl (Xylocaine-Mpf 1% 2ml Vial) 2 ml STK-MED ONCE .ROUTE ; Start 12/26/18 at 15:06; Stop 12/26/18 at 15:06; Status DC Heparin Sodium/ Sodium Chloride 1,000 ml @ As Directed STK-MED ONCE .ROUTE ; Start 12/26/18 at 15:06; Stop 12/26/18 at 15:07; Status DC Fentanyl Citrate (Fentanyl 2ml Vial) 100 mcg STK-MED ONCE .ROUTE ; Start 12/26/18 at 15:18; Stop 12/26/18 at 15:18; Status DC Midazolam HCl (Versed) 2 mg STK-MED ONCE .ROUTE ; Start 12/26/18 at 15:18; Stop 12/26/18 at 15:19; Status DC Heparin Sodium (Porcine) (Heparin Sodium) 10,000 unit STK-MED ONCE .ROUTE ; Start 12/26/18 at 15:18; Stop 12/26/18 at 15:19; Status DC Verapamil HCl (Verapamil) 5 mg STK-MED ONCE .ROUTE ; Start 12/26/18 at 15:18; Stop 12/26/18 at 15:19; Status DC Nitroglycerin (Nitroglycerin) 200 mcg STK-MED ONCE .ROUTE ; Start 12/26/18 at 15:18; Stop 12/26/18 at 15:19; Status DC Iodixanol (Visipaque 320) 100 ml STK-MED ONCE .ROUTE ; Start 12/26/18 at 15:48; Stop 12/26/18 at 15:48; Status DC Ticagrelor (Brilinta) 90 mg STK-MED ONCE .ROUTE ; Start 12/26/18 at 16:02; Stop 12/26/18 at 16:02; Status DC Tirofiban/Sodium Chloride 250 ml @ As Directed STK-MED ONCE IV ; Start 12/26/18 at 16:02; Stop 12/26/18 at 16:02; Status DC Lidocaine HCl (Xylocaine-Mpf 1% 2ml Vial) 2 ml 1X ONCE INJ ; Start 12/26/18 at 16:15; Stop 12/26/18 at 16:24; Status DC Nitroglycerin (Nitroglycerin) 200 mcg 1X ONCE IART Last administered on at 16:37; Start 12/26/18 at 16:15; Stop 12/26/18 at 16:23; Status DC Verapamil HCl (Verapamil) 2.5 mg 1X ONCE IART Last administered on 12/26/18at 16:37; Start 12/26/18 at 16:15; Stop 12/26/18 at 16:23; Status DC Heparin Sodium (Porcine) (Heparin Sodium) 2,500 unit 1X ONCE IART Last administered on 12/26/18 16:37; Start 12/26/18 at 16:15; Stop 12/26/18 at 16:23; Status DC Heparin Sodium/ Sodium Chloride (HEPARIN for ARTERIAL LINE FLUSH) 1,000 unit 1X ONCE IART Last administered on 12/26/18 16:37; Start 12/26/18 at 16:15; Stop 12/26/18 at 16:23; Status DC Midazolam HCl (Versed) 2 mg 1X ONCE IV Last administered on 12/26/18 16:37; Start 12/26/18 at 16:15; Stop 12/26/18 at 16:23; Status DC Fentanyl Citrate (Fentanyl 2ml Vial) 100 mcg 1X ONCE IV ; Start 12/26/18 at 16:15; Stop 12/26/18 at 16:23; Status DC Iodixanol (Visipaque 320) 100 ml 1X ONCE IART ; Start 12/26/18 at 16:15; Stop 12/26/18 at 16:23; Status DC Ticagrelor (Brilinta) 180 mg 1X ONCE PO Last administered on 12/26/18 16:37; Start 12/26/18 at 16:15; Stop 12/26/18 at 16:23; Status DC Heparin Sodium (Porcine) (Heparin Sodium) 4,000 unit 1X ONCE IV Last administered on 12/26/18 16:37; Start 12/26/18 at 16:15; Stop 12/26/18 at 16:23; Status DC Tirofiban/Sodium Chloride 250 ml @ 0 mls/hr CONT PRN IV PER PROTOCOL Last administered on 12/26/18 16:37; Start 12/26/18 at 16:15; Stop 12/26/18 at 16:38; Status DC Ticagrelor (Brilinta) 90 mg BID PO Last administered on 12/27/18 09:23; Start 12/26/18 at 23:00 Aspirin (Ecotrin) 81 mg DAILYWBKFT PO Last administered on 12/27/18 09:23; Start 12/27/18 at 08:00 Metoprolol Succinate (Toprol Xl) 25 mg DAILY PO Last administered on 9/4/19at 1 2:15; Start 12/27/18 at 12:00 Magnesium Oxide (Magnesium Oxide) 400 mg DAILY PO Last administered on 12/27/18at 12:15; Start 12/27/18 at 12:00 Barium Sulfate (Varibar Thin Liquid Apple) 148 gm 1X ONCE PO Last administered on 12/27/18at 13:37; Start 12/27/18 at 12:30; Stop 12/27/18 at 12:31; Status DC Active Scripts Active Lactulose 20 Gm/30 Ml Solution 10 Gm PO DAILY PRN Reported Flomax (Tamsulosin Hcl) 0.4 Mg Cap.er.24h 0.4 Mg PO HS Percocet 10-325 Mg Tablet (Oxycodone/Acetaminophen) 1 Each Tablet 1 Tab PO Q4-6HRS PRN Clopidogrel (Clopidogrel Bisulfate) 75 Mg Tablet 75 Mg PO DAILY Aspirin 325 Mg Tablet 325 Mg PO DAILY Propafenone Hcl 150 Mg Tablet 150 Mg PO BID Atorvastatin Calcium 40 Mg Tablet 80 Mg PO HS Nitrostat (Nitroglycerin) 0.4 Mg Tab.subl 0.4 Mg SL PRN Q5MIN Vital Signs Vital Signs Date Time Temp Pulse Resp B/P (MAP) Pulse Ox O2 Delivery O2 Flow Rate FiO2 12/27/18 14:14 85 16 119/62 (81) Room Air 12/27/18 11:56 96 12/27/18 10:15 98.0 98.0 Labs Laboratory Tests Test 12/26/18 10:25 White Blood Count 5.2 x10^3/uL (4.0-11.0) Red Blood Count 4.97 x10^6/uL (4.30-5.70) Hemoglobin 14.4 g/dL (13.0-17.5) Hematocrit 43.6 % (39.0-53.0) Mean Corpuscular Volume 88 fL (79-100) Mean Corpuscular Hemoglobin 29 pg (25-35) Mean Corpuscular Hemoglobin Concent 33 g/dL (31-37) Red Cell Distribution Width 14.0 % (11.5-14.5) Platelet Count 182 x10^3/uL (140-400) Neutrophils (%) (Auto) 82 % (31-73) Lymphocytes (%) (Auto) 11 % (24-48) Monocytes (%) (Auto) 6 % (0-9) Eosinophils (%) (Auto) 0 % (0-3) Basophils (%) (Auto) 1 % (0-3) Neutrophils # (Auto) 4.2 x10^3/uL (1.8-7.7) Lymphocytes # (Auto) 0.6 x10^3/uL (1.0-4.8) Monocytes # (Auto) 0.3 x10^3/uL (0.0-1.1) Eosinophils # (Auto) 0.0 x10^3/uL (0.0-0.7) Basophils # (Auto) 0.0 x10^3/uL (0.0-0.2) Prothrombin Time 12.6 SEC (11.7-14.0) Prothromb Time International Ratio 1.0 (0.8-1.1) Sodium Level 143 mmol/L (136-145) Potassium Level 4.2 mmol/L (3.5-5.1) Chloride Level 105 mmol/L (98-107) Carbon Dioxide Level 28 mmol/L (21-32) Anion Gap 10 (6-14) Blood Urea Nitrogen 15 mg/dL (8-26) Creatinine 1.0 mg/dL (0.7-1.3) Estimated GFR (Cockcroft-Gault) 72.6 BUN/Creatinine Ratio 15 (6-20) Glucose Level 130 mg/dL (70-99) Calcium Level 9.4 mg/dL (8.5-10.1) Magnesium Level 1.7 mg/dL (1.8-2.4) Total Bilirubin 0.4 mg/dL (0.2-1.0) Aspartate Amino Transf (AST/SGOT) 17 U/L (15-37) Alanine Aminotransferase (ALT/SGPT) 20 U/L (16-63) Alkaline Phosphatase 93 U/L (46-116) Troponin I Quantitative < 0.017 ng/mL (0.000-0.055) JP-Ycs-G-Type Natriuretic Peptide 876 pg/mL (0-449) Total Protein 6.8 g/dL (6.4-8.2) Albumin 3.3 g/dL (3.4-5.0) Albumin/Globulin Ratio 0.9 (1.0-1.7) Triglycerides Level 63 mg/dL (0-150) Cholesterol Level 152 mg/dL (0-200) LDL Cholesterol, Calculated 70 mg/dL (0-100) VLDL Cholesterol, Calculated 13 mg/dL (0-40) Non-HDL Cholesterol Calculated 83 mg/dL (0-129) HDL Cholesterol 69 mg/dL (40-60) Cholesterol/HDL Ratio 2.2 Ethyl Alcohol Level < 10 mg/dL (0-10) Allergies Allergies Coded Allergies Type Severity Reaction Last Updated Verified No Known Drug Allergies 08/27/13 No Disposition/Orders: D/C to Home Patient Instructions D/C PLANNING 32 MIN DAVE EDWARDS MD Dec 27, 2018 15:34
[2018-12-27] MEDS ORDERED: TICA90TA PO (15:38)
[2018-12-27] MEDS ORDERED: MAGN400T22 PO (15:38)
[2018-12-27] MEDS ORDERED: METO-239 PO (15:38)
--- NOTE | 2018-12-27 15:40 | DISCH ---
DISCHARGE INSTRUCTIONS Condition on Discharge Condition on Discharge: Guarded Activity After Discharge Activity Instructions for Disc: No restrictions, Avoid exertion Bathing Instructions: Shower-keep dressing dry Lifting Instructions after Dis: No heavy lifting, No pulling or pushing Exercise Instruction after Dis: Progress as tolerated Driving Instructions after Dis: Do not drive today Weight Bearing Status after Di: No restrictions Diet after Discharge Diet after Discharge: Cardiac Diet Texture: Regular Liquid Texture: Thin Liquid Swallowing Supervision: None needed Wound Incision Care Wound/Incision Care: No wound care needed Checks after Discharge Checks after discharge: Check blood press - daily Contacting the DR. after DC Call your doctor for: Concerns you may have Treatment/Equipment after DC Adaptive Equipment Issued: None DAVE EDWARDS MD Dec 27, 2018 15:40
--- NOTE | 2018-12-27 16:16 | NUR ---
Discharge Note: NOBLE SÁNCHEZ Discharge instructions and discharge home medications reviewed with Patient and a copy given. All questions have been answered and understanding verbalized.
--- NOTE | 2018-12-27 16:23 | RAD ---
VIDEO SWALLOW STUDY 12/27/2018 11:20 AM INDICATION: Dysphagia. COMPARISON: None available. TECHNIQUE: Fluoroscopic evaluation of swallow function was performed after the ingestion of varying barium-containing consistencies. Radiologist was present during the entirety of the examination. Fluoroscopy time: 1.9 minutes Number of images: No images saved FINDINGS: There is silent aspiration with thin, nectar thick and honey thick liquids. There is moderate to significant residue with pureed and solid consistencies. IMPRESSION: 1. Aspiration is noted with all consistencies ingested. Aspiration with pureed and solid consistencies appears to be secondary to residue within the vallecula and piriform sinuses. 2. Please refer to the separate speech pathology report for further details. Electronically signed by: Kalani Marley MD (12/27/2018 4:20 PM) [facility]
--- NOTE | 2018-12-28 13:07 | CARD ---
MR#: [id number] Date of Study: 12/26/2018 Ordering Physician: GARTH HURT, Referring Physician: GARTH HURT, Tech: RT Dayday (R) APPROVED REPORT Technologist: Tigre Wolf RT (R) Nurse: Vaishnavi Castillo Procedure(s) performed: Sedation Time: 54 Minutes Dose: 34 Gycm2 Constrast: 105mL Visipaque Fluoro Time: 11.9 Minutes LHC, Coronary angiography PTCA of the RCA ISR HISTORY The patient is a 78 year-old male with a history of : coronary artery disease, tobacco history() , hy pertension. INDICATION The indication(s) include : unstable angina , arrhythmia, dyspnea, new LBBB. CSHA Clinical Frailty Scale CS Clinical Frailty Scale: Mildly Frail Heart Failure Heart Failure: No CASE TECHNIQUE During this case, Fluoroscopy and low osmolar contrast were used for imaging. PROCEDURE NARRATIVE INFORMED CONSENT: After explaining the risks and benefits of the procedure and alternatives, informed consent was obtained. The patient was brought electively to the cardiac catheterization lab. A timeout was performed confi rming the patient's name, date of , procedure, and site of procedure. All necessary personnel w ere wearing the appropriate protective equipment and radiation monitor devices. (See nursing notes for medications administered). ACCESS: The right wrist was sterilely prepped and draped in the usual fashion. The right wrist was infiltrat ed with 1 mL of 2% lidocaine for subcutaneous anesthesia. A 6 Turkish Terumo glide sheath was inserte d into the right radial artery without difficulty. CORONARY ANGIOGRAPHY: Right and left coronary angiography was performed using a 6Fr TIG 4.0 catheter, JR4 catheter. Left ventricular end diastolic pressure was obtained with aTIG catheter and pullback was performed after l eft ventriculography. All catheter exchanges and advancements were performed over a guidewire. CLOSURE: At case completion the right radial sheath was removed and a Terumo radial band was applied with 13 m l of air. COMPLICATIONS: The patient tolerated the procedure well and there were no immediate complications. FINDINGS: HEMODYNAMICS: LVEDP 5 mm Hg No gradient on LV to aortic pullback. AO: 120/70 LEFT VENTRICULOGRAM: Deferred due to CKD and known prior EF. CORONARY ANGIOGRAPHY: LM is a large caliber vessel with normal angiographic appearance. LAD is a large caliber vessel with a patent proximal stent. The remainder of the vessel has no signif icant disease. Ramus is a moderate caliber vessel with normal angiographic apeparance. LCx is a moderate caliber non-dominant vessel with normal angiographic appearance. OM1 is a moderate caliber vessel with normal angiographic appearance. RCA is a large caliber dominant vessel with 70% ISR involving ostial/proximal overlapping stents. RPDA and RPL are moderate caliber vessels with normal angiographic appearance. INTERVENTIONAL TECHNIQUE: Due to the presenting symptoms, angiographic findings and recurrent ISR an intervention was performed . Through a 6Fr AR 1 guide catheter, a 0.014'' Prowater wire was advanced to the distal RCA. Balloon angioplasty was performed with a Trek 3.5 compliant and 3.0 NC balloons and there was no significant improvement in the stenosis. Next, a 3.0/10 mm Flextome cutting balloon was used which reduced the le yana to less than 20%. Repeat angioplasty was then performed with a Trek 3.5/8 mm NC balloon at 12 at m and there was less than 20% residual stenosis. Given the lack of any further dampening on engagemen t, residual stenosis less than 20%, further intervention was deferred. The patient received 180mg of Ticagrelor at case completion. ELINOR Flow ELINOR Flow (Pre-Intervention): ELINOR-3 ELINOR Flow (Post-Intervention): ELINOR-3 Conclusion 1. Normal left sided filling pressures. 2. Two vessel coronary disease with ISR of the RCA stents 3. Successful balloon angioplasty of the RCA stents with 3.0 cutting balloon and 3.5 mm NC balloon. Recommendations ASA 81mg daily Ticagrelor 90mg bid. Aggressive smoking cessation therapy and high dose statin therapy. Signed by : Garth Hurt, Electronically Approved : 12/26/2018 16:56:12
--- NOTE | 2018-12-28 13:07 | CARD ---
MR#: [id number] Date of Study: 12/27/2018 Ordering Physician: BATSHEVA GOLDMAN, Referring Physician: BATSHEVA GOLDMAN Tech: Jessi Celis DENNYS APPROVED REPORT EXAM: Two-dimensional and M-mode echocardiogram with Doppler and color Doppler. Other Information Quality : Technically Limited Rhythm : LBBBTechnically limited study due to body habitus and smoking. INDICATION Abnormal ECG Chest Pain S/P Cardiac Cath 2D DIMENSIONS RVDd2.6 (2.9-3.5cm)Left Atrium(2D)2.8 (1.6-4.0cm) IVSd0.7 (0.7-1.1cm)Aortic Root(2D)3.1 (2.0-3.7cm) LVDd4.9 (3.9-5.9cm)LVOT Diameter2.1 (1.8-2.4cm) PWd0.8 (0.7-1.1cm)LVDs3.8 (2.5-4.0cm) FS (%) 17.0 %SV48.4 ml Aortic Valve AoV Peak Miguel Angel.95.2cm/sAoV VTI17.2cm AO Peak GR.3.6mmHgLVOT Peak Miguel Angel.87.8cm/s AO Mean GR.2mmHgAVA (VMAX)3.32cm2 POOJA (VTI)3.50cm2 Mitral Valve MV E Ymtluqys51.1cm/sMV DECEL [id number] MV A Hyezwfjh41.6cm/sE/A Ratio0.8 Tricuspid Valve TR P. Wcwrkyvw514hn/sRAP [id number] TR Peak Gr.34xkCoHEQA54fqNn Pulmonary Vein S1 Pvkvaaol42.3cm/sD2 Tlyxcrju27.9cm/s LEFT VENTRICLE The Left Ventricle is borderline dilated. There is normal left ventricular wall thickness. Left ventr icle systolic function is severely decreased. The Ejection Fraction is 25-30%. There is severe global hypokinesis of the left ventricle. Transmitral Doppler flow pattern is Grade I-abnormal relaxation p attern. RIGHT VENTRICLE The right ventricle is normal size. The right ventricular systolic function is normal. ATRIA The left atrium size is normal. The right atrium size is normal. The interatrial septum is intact wit h no evidence for an atrial septal defect or patent foramen ovale as noted on 2-D or Doppler imaging. AORTIC VALVE The aortic valve is calcified but opens well. Doppler and Color Flow revealed no significant aortic r egurgitation. There is no significant aortic valvular stenosis. MITRAL VALVE The mitral valve is normal in function. There is no evidence of mitral valve prolapse but the anterio r mitral valve leaflet is redundant. There is no mitral valve stenosis. Doppler and Color Flow reveal ed trace mitral valve regurgitation. TRICUSPID VALVE The tricuspid valve is normal in structure and function. Doppler and Color Flow revealed trace tricus pid regurgitation. The PA pressure was estimated at 30 mmHg. There is no tricuspid valve stenosis. PULMONIC VALVE The pulmonic valve is not well visualized. Doppler and Color Flow revealed no pulmonic valvular regur gitation. There is no pulmonic valvular stenosis. GREAT VESSELS The aortic root is normal in size. The ascending aorta is not well seen. The IVC is normal in size an d collapses >50% with inspiration. PERICARDIAL EFFUSION There is no evidence of significant pericardial effusion. Critical Notification Critical Value: No <Conclusion> The Left Ventricle is borderline dilated. Left ventricle systolic function is severely decreased. The Ejection Fraction is 25-30%. There is severe global hypokinesis of the left ventricle. There is no significant aortic valvular stenosis. Doppler and Color Flow revealed no significant aortic regurgitation. Doppler and Color Flow revealed trace mitral valve regurgitation. Doppler and Color Flow revealed trace tricuspid regurgitation. The PA pressure was estimated at 30 mmHg. Signed by : Ned Waterman MD Electronically Approved : 12/27/2018 09:26:04
== END 2018-12-27 16:30 | disposition home or self-care (01) | DRG 250 ==
LOC: ER 10:04 → ED HOLD 11:45 → 2 NORTH 14:46
PROVIDERS: ADMIT Internal Medicine; ATTEND Internal Medicine
PROC: 02703ZZ Dilation of Coronary Artery, One Artery, Percutaneous Approach (ICD-10-PCS; principal; 2018-12-26)
PROC: 4A023N7 Measurement of Cardiac Sampling and Pressure, Left Heart, Percutaneous Approach (ICD-10-PCS; 2018-12-26)
PROC: B211YZZ Fluoroscopy of Multiple Coronary Arteries using Other Contrast (ICD-10-PCS; 2018-12-26)
DX: T82.855A Stenosis of coronary artery stent, initial encounter (principal); E43 Unspecified severe protein-calorie malnutrition; I25.110 Atherosclerotic heart disease of native coronary artery with unstable angina pectoris; J44.9 Chronic obstructive pulmonary disease, unspecified; E78.5 Hyperlipidemia, unspecified; I44.7 Left bundle-branch block, unspecified; I12.9 Hypertensive chronic kidney disease with stage 1 through stage 4 chronic kidney disease, or unspecified chronic kidney disease; N18.9 Chronic kidney disease, unspecified; E78.00 Pure hypercholesterolemia, unspecified; R13.10 Dysphagia, unspecified; I48.0 Paroxysmal atrial fibrillation; K59.00 Constipation, unspecified; M19.042 Primary osteoarthritis, left hand; M19.041 Primary osteoarthritis, right hand; M48.02 Spinal stenosis, cervical region; F17.210 Nicotine dependence, cigarettes, uncomplicated; Y83.8 Other surgical procedures as the cause of abnormal reaction of the patient, or of later complication, without mention of misadventure at the time of the procedure; Y92.89 Other specified places as the place of occurrence of the external cause; I25.2 Old myocardial infarction; Z85.118 Personal history of other malignant neoplasm of bronchus and lung; Z90.49 Acquired absence of other specified parts of digestive tract; Z85.038 Personal history of other malignant neoplasm of large intestine; Z82.49 Family history of ischemic heart disease and other diseases of the circulatory system; Z91.19 Patient's noncompliance with other medical treatment and regimen; Z91.81 History of falling; Z95.5 Presence of coronary angioplasty implant and graft; Z79.899 Other long term (current) drug therapy; Z79.82 Long term (current) use of aspirin; Z71.6 Tobacco abuse counseling
CPT/HCPCS: 36415; 71045; 74177; 74230; 80048; 80053; 80061; 80076; 81001; 83690; 83735; 83880; 84484; 85025; 85610; 92920; 93005; 93306; 93458; 99152; 99153; C1725; C1769; C1887; C1892; G0480; J1644; J2250; J3490; 92610; 92611; 97110; 99285-25; G0378; J3246

== ENCOUNTER 2019-01-05 19:01 | Emergency (ER) | payer OTHER ==
[~2019-01-05] VITALS: Ht 182.9 cm; Wt 54.0 kg
[~2019-01-05 19:01] MED LIST changes: +MAGN400T22 PO; +TICA90TA PO
[2019-01-05] MEDS ORDERED: IV NORMAL SALINE 1000ML BAG 1,000 ML IV SCH (19:33)
--- NOTE | 2019-01-05 19:43 | PHYS DOC ---
Past Medical History Past Medical History: CAD, Cancer, High Cholesterol, Hypertension, [place], Other Additional Past Medical Histor: lung ca hx 2000, prostate/colon cancer Past Surgical History: Appendectomy, Other Additional Past Surgical Histo: lobectomy, cardiac stents, back surgery Alcohol Use: None Drug Use: None Adult General Chief Complaint Chief Complaint: MULTIPLE COMPLAINTS HPI HPI Patient is a 78-year-old male who presents with complaints of decreased hearing, decreased vision, especially in his right eye, difficulty with swallowing, oftentimes choking on liquids, and right lower abdominal pain. Patient states that the symptoms have become acutely worse over the last couple of days. He states that the hearing in the vision are much more recent in onset than the abdominal pain. He states that he has been losing a lot of weight and does have history of lung cancer for which he had a lobectomy. He denies any chest pain or shortness of breath. He does admit to a cough that is productive of sputum. He is not aware of any alleviating factors for his abdominal pain and states the pain is worsened with palpation. He rates that pain as moderate.[] Review of Systems Review of Systems Constitutional: Denies fever or chills [] Eyes: Complains of change in visual acuity without eye pain [] HENT: Denies nasal congestion or sore throat. Complains of decreased hearing [] Respiratory: Complains of cough without shortness of breath [] Cardiovascular: No additional information not addressed in HPI [] GI: Complains of right lower abdominal pain without vomiting or diarrhea [] Integument: Denies rash or skin lesions [] Neurologic: Complains of right sided headache, behind right eye without focal weakness. [] All other systems were reviewed and found to be within normal limits, except as documented in this note. Current Medications Current Medications Current Medications Medications (Trade) Dose Ordered Sig/Serge Start Time Stop Time Status Last Admin Dose Admin Fentanyl Citrate (Fentanyl 2ml Vial) 50 mcg 1X ONCE 01/05/19 20:15 01/05/19 20:16 DC 01/05/19 21:10 50 MCG Info (CONTRAST GIVEN -- Rx MONITORING) 1 each PRN DAILY PRN 01/05/19 21:00 01/07/19 20:59 Iohexol (Omnipaque 300 Mg/ml) 75 ml 1X ONCE 01/05/19 20:45 01/05/19 20:47 DC 01/05/19 21:00 75 ML Ondansetron HCl (Zofran) 4 mg 1X ONCE 01/05/19 20:15 01/05/19 20:16 DC 01/05/19 21:10 4 MG Sodium Chloride 1,000 ml @ 1,000 mls/hr Q1H 01/05/19 19:33 01/05/19 20:32 DC 01/05/19 20:03 1,000 MLS/HR Allergies Allergies Allergies Coded Allergies Type Severity Reaction Last Updated Verified No Known Drug Allergies 08/27/13 No Physical Exam Physical Exam Constitutional: Well developed, well nourished, no acute distress, non-toxic appearance. [] HENT: Normocephalic, atraumatic, TMs are both retracted, oropharynx moist, posterior pharyngeal cobblestoning is noted, nose normal. [] Eyes: PERRLA, EOMI, conjunctiva normal, no discharge. [] Neck: Normal range of motion, no tenderness, supple, no stridor. [] Cardiovascular: Regular rate and rhythm[] Lungs & Thorax: Fine rhonchi noted in the right lung base to auscultation [] Abdomen: Bowel sounds normal, soft, with moderate right lower quadrant tenderness. [] Skin: Warm, dry, no erythema, no rash. [] Extremities: No tenderness, no cyanosis, no clubbing, ROM intact. [] Neurologic: Alert and oriented X 3, no focal deficits noted. [] Current Patient Data Vital Signs Vital Signs Date Time Temp Pulse Resp B/P (MAP) Pulse Ox O2 Delivery O2 Flow Rate FiO2 01/05/19 21:30 56 13 120/79 (93) 98 Room Air 01/05/19 19:11 97.8 97.8 Lab Values Laboratory Tests Test 01/05/19 19:49 01/05/19 20:00 White Blood Count 4.8 x10^3/uL (4.0-11.0) Red Blood Count 4.65 x10^6/uL (4.30-5.70) Hemoglobin 13.7 g/dL (13.0-17.5) Hematocrit 40.9 % (39.0-53.0) Mean Corpuscular Volume 88 fL (79-100) Mean Corpuscular Hemoglobin 29 pg (25-35) Mean Corpuscular Hemoglobin Concent 33 g/dL (31-37) Red Cell Distribution Width 14.9 % (11.5-14.5) H Platelet Count 182 x10^3/uL (140-400) Neutrophils (%) (Auto) 66 % (31-73) Lymphocytes (%) (Auto) 19 % (24-48) L Monocytes (%) (Auto) 12 % (0-9) H Eosinophils (%) (Auto) 2 % (0-3) Basophils (%) (Auto) 1 % (0-3) Neutrophils # (Auto) 3.1 x10^3/uL (1.8-7.7) Lymphocytes # (Auto) 0.9 x10^3/uL (1.0-4.8) L Monocytes # (Auto) 0.6 x10^3/uL (0.0-1.1) Eosinophils # (Auto) 0.1 x10^3/uL (0.0-0.7) Basophils # (Auto) 0.0 x10^3/uL (0.0-0.2) Sodium Level 143 mmol/L (136-145) Potassium Level 4.3 mmol/L (3.5-5.1) Chloride Level 105 mmol/L (98-107) Carbon Dioxide Level 31 mmol/L (21-32) Anion Gap 7 (6-14) Blood Urea Nitrogen 26 mg/dL (8-26) Creatinine 0.8 mg/dL (0.7-1.3) Estimated GFR (Cockcroft-Gault) 94.0 BUN/Creatinine Ratio 33 (6-20) H Glucose Level 99 mg/dL (70-99) Calcium Level 9.8 mg/dL (8.5-10.1) Total Bilirubin 0.3 mg/dL (0.2-1.0) Aspartate Amino Transferase (AST) 17 U/L (15-37) Alanine Aminotransferase (ALT) 21 U/L (16-63) Alkaline Phosphatase 80 U/L (46-116) Troponin I Quantitative < 0.017 ng/mL (0.000-0.055) Total Protein 6.7 g/dL (6.4-8.2) Albumin 3.3 g/dL (3.4-5.0) L Albumin/Globulin Ratio 1.0 (1.0-1.7) Lipase 77 U/L (73-393) Urine Collection Type Unknown Urine Color Yellow Urine Clarity Clear Urine pH 5.0 Urine Specific [place] >=1.030 Urine Protein Negative mg/dL (NEG-TRACE) Urine Glucose (UA) Negative mg/dL (NEG) Urine Ketones (Stick) Trace mg/dL (NEG) Urine Blood Negative (NEG) Urine Nitrite Negative (NEG) Urine Bilirubin Small (NEG) Urine Urobilinogen Dipstick 0.2 mg/dL (0.2 mg/dL) Urine Leukocyte Esterase Negative (NEG) Urine RBC 1-2 /HPF (0-2) Urine WBC Occ /HPF (0-4) Urine Squamous Epithelial Cells Occ /LPF Urine Amorphous Sediment Present /HPF Urine Bacteria 0 /HPF (0-FEW) Urine Mucus Marked /LPF Laboratory Tests 01/05/19 19:49 Laboratory Tests 01/05/19 19:49 EKG EKG [] Radiology/Procedures Radiology/Procedures [] Course & Med Decision Making Course & Med Decision Making Pertinent Labs and Imaging studies reviewed. (See chart for details) [] Dragon Disclaimer Dragon Disclaimer This electronic medical record was generated, in whole or in part, using a voice recognition dictation system. Departure Departure Impression: Primary Impression: Dehydration Additional Impression: Dysphagia Disposition: 01 HOME, SELF-CARE Condition: STABLE Referrals: NATASHA BANSAL MD (PCP) Patient Instructions: Dehydration, Adult, Dysphagia Additional Instructions: Follow-up with your primary care provider this coming week. Problem Qualifiers Additional Impression: Dysphagia Dysphagia type: unspecified Qualified Codes: R13.10 - Dysphagia, unspecified NOBLE CORREIA Jr. DO Jan 05, 2019 19:43
[2019-01-05 20:03] LABS: BASO % 1 % (0-3); EOS # 0.1 x10^3/uL (0.0-0.7); EOS % 2 % (0-3); HEMATOCRIT 40.9 % (39.0-53.0); HEMOGLOBIN 13.7 g/dL (13.0-17.5); LYMPH # 0.9 x10^3/uL (1.0-4.8); LYMPH % 19 % (24-48); MEAN CORPUSCULAR HEMOGLOBIN 29 pg (25-35); MEAN CORPUSCULAR HGB CONC 33 g/dL (31-37); MEAN CORPUSCULAR VOLUME 88 fL (79-100); MONO # 0.6 x10^3/uL (0.0-1.1); MONO % 12 % (0-9); NEUT # 3.1 x10^3/uL (1.8-7.7); NEUT % 66 % (31-73); PLATELET COUNT 182 x10^3/uL (140-400); RED BLOOD COUNT 4.65 x10^6/uL (4.30-5.70); RED CELL DISTRIBUTION WIDTH 14.9 % (11.5-14.5); WHITE BLOOD COUNT 4.8 x10^3/uL (4.0-11.0)
[2019-01-05 20:13] LABS: BILIRUBIN,URINE SMALL (NEG); CLARITY,URINE CLEAR; COLOR,URINE YELLOW; NITRITE,URINE NEGATIVE (NEG); PROTEIN,URINE NEGATIVE (NEG-TRACE); UROBILINOGEN,URINE 0.2 mg/dL (0.2 mg/dL)
[2019-01-05 20:14] LABS: CALCIUM 9.8 mg/dL (8.5-10.1); CREATININE 0.8 mg/dL (0.7-1.3); POTASSIUM 4.3 mmol/L (3.5-5.1)
[2019-01-05] MEDS ORDERED: ONDANSETRON PF 4 MG/2 ML VIAL. IV ONE (20:15)
[2019-01-05] MEDS ORDERED: fentaNYL PF VIAL 100 MCG/2 ML VIAL IV ONE (20:15)
[2019-01-05 20:21] LABS: ALBUMIN 3.3 g/dL (3.4-5.0); TOTAL BILIRUBIN 0.3 mg/dL (0.2-1.0); TOTAL PROTEIN 6.7 g/dL (6.4-8.2)
[2019-01-05 20:21] LABS: SQUAMOUS EPITHELIAL CELL,UR OCC /LPF
[2019-01-05 20:22] LABS: AMORPHOUS SEDIMENT,UR PRESENT /HPF; BACTERIA,URINE 0 /HPF (0-FEW); WBC,URINE OCC /HPF (0-4)
[2019-01-05] MEDS ORDERED: IOHEXOL 300 MG/ML 100ML VIAL. IV ONE (20:45)
[2019-01-05] MEDS ORDERED: CONTRAST GIVEN. MC PRN (21:00)
--- NOTE | 2019-01-05 21:23 | RAD ---
CT scan of the head without contrast 01/05/2019 Clinical History: Right-sided headache. Technique: Unenhanced, contiguous, 5 mm axial sections were obtained through the head. One or more of the following individualized dose reduction techniques were utilized for this study: 1. Automated exposure control. 2. Adjustment of the mA and/or kV according to patient size. 3. Use of iterative reconstruction technique. Findings: Comparison study is dated 05/12/2014. There is generalized parenchymal atrophy. Areas of decreased attenuation are seen within the periventricular and subcortical white matter of both cerebral hemispheres consistent with areas of small vessel ischemic disease. No acute parenchymal abnormality is seen. No extra-axial fluid collection is noted. No skull fracture is seen. Impression: No acute intracranial abnormality is seen. Electronically signed by: Jareth Hardy MD (01/05/2019 9:21 PM) [facility]
--- NOTE | 2019-01-05 21:38 | RAD ---
Exam: CT abdomen and pelvis with contrast INDICATION: Right lower quadrant abdominal pain TECHNIQUE: Sequential axial images through the abdomen and pelvis obtained following the administration of 75 mL of Omni 300 IV contrast. Sagittal and coronal reformatted images were reconstructed from the axial data and reviewed. Comparisons: 12/24/2018 FINDINGS: Heart size is normal. No pericardial effusion. Emphysematous change at the visualized lung bases. No pleural effusion. Hypoattenuating cystic lesion noted at the inferior right hepatic lobe measuring 1.8 cm incompletely characterized secondary to beam hardening artifact from spinal fusion hardware. Mild pancreatic ductal dilatation is noted. No peripancreatic fluid collection. Gallbladder, spleen and adrenals are unremarkable. No hydronephrosis. No renal or ureteral calculi are identified. Bladder is decompressed with apparent bladder wall thickening. Prostate is moderate to severely enlarged. Large and small bowel are unremarkable. Appendix is normal. No free intra-abdominal air or fluid. No obstruction. Abdominal aorta has a normal course and caliber. Abdominal vasculature is patent. No enlarged intra-abdominal lymph nodes are identified. Posterior lumbar fusion hardware is noted. No suspicious osseous lesion. IMPRESSION: 1. Limited evaluation of the upper abdomen secondary to extensive streak artifact from thoracic/lumbar fusion hardware. If symptoms persist or worsen repeat imaging to assess for changes advised. 2. Normal appendix. No evidence for obstruction. 3. No acute process identified within the abdomen or pelvis. Exposure: One or more of the following in the visualized dose reduction techniques were utilized for this examination: 1. Automated exposure control 2. Adjustment of the MA and/or KV according to patient size 3. Use of iterative of reconstructive technique Electronically signed by: Cherie Singer MD (01/05/2019 9:35 PM) [facility]
[2019-01-05 22:30] VITALS: BP 104/57
--- NOTE | 2019-01-05 22:37 | RAD ---
AP portable chest radiograph 01/05/2019 Clinical History: Cough. An AP erect portable digital radiograph of the chest was obtained. Comparison study is dated 12/26/2018. Stabilizing rods and pedicle screws overlie the thoracolumbar spine. The cardiac silhouette is normal in size. The thoracic aorta is mildly tortuous. Blunting of the right costophrenic angle is seen consistent with pleural thickening. Postsurgical changes are seen involving the right lung. Volume loss of the right lung is noted. Right apical pleural thickening is seen. No acute pulmonary infiltrate is seen. No pneumothorax or pleural effusion is noted. The osseous structures are unchanged. Impression: No acute abnormality is seen. Electronically signed by: Jareth Hardy MD (01/05/2019 10:35 PM) [facility]
== END 2019-01-05 22:45 | disposition home or self-care (01) ==
LOC: ER 19:01
DX: E86.0 Dehydration (principal); R13.10 Dysphagia, unspecified; R51 Headache; R10.31 Right lower quadrant pain; H54.61 Unqualified visual loss, right eye, normal vision left eye; E78.00 Pure hypercholesterolemia, unspecified; I10 Essential (primary) hypertension; I25.2 Old myocardial infarction; Z90.89 Acquired absence of other organs; Z85.038 Personal history of other malignant neoplasm of large intestine; Z85.118 Personal history of other malignant neoplasm of bronchus and lung; Z85.46 Personal history of malignant neoplasm of prostate
CPT/HCPCS: 36415; 70450; 71045; 74177; 80053; 81001; 83690; 84484; 85025; 96361; 96374; 96375; 99285; J2405; J3010; J7030; Q9967

== ENCOUNTER 2019-01-08 11:50 | Observation (INO) | payer OTHER ==
[~2019-01-08] VITALS: Ht 182.9 cm; Wt 51.9 kg
--- NOTE | 2019-01-08 12:33 | PHYS DOC ---
Past Medical History Past Medical History: CAD, Cancer, High Cholesterol, Hypertension, [place], Other Additional Past Medical Histor: lung ca hx 2000, prostate/colon cancer Past Surgical History: No Surgical History, Appendectomy, Other Additional Past Surgical Histo: lobectomy, cardiac stents, back surgery Alcohol Use: Rarely Drug Use: None Adult General Chief Complaint Chief Complaint: CHEST PAIN HPI HPI Patient is a 78 year old male with a history of coronary artery disease, hypertension and COPD presents to the ED complaining of left-sided chest pain that started last night. Patient recent cardiac cath completed on December 26. States he has not taken anything for his pain today. Describes his pain as sharp/pressure. Rates his pain as 7 out of 10. Denies fever, cough, shortness of breath, dizziness, vision changes, weakness, abdominal pain or nausea/vomiting. Review of Systems Review of Systems Constitutional: Denies fever or chills [] Eyes: Denies change in visual acuity, redness, or eye pain [] HENT: Denies nasal congestion or sore throat [] Respiratory: Denies cough or shortness of breath [] Cardiovascular: No additional information not addressed in HPI [] GI: Denies abdominal pain, nausea, vomiting, bloody stools or diarrhea [] : Denies dysuria or hematuria [] Musculoskeletal: Denies back pain or joint pain [] Integument: Denies rash or skin lesions [] Neurologic: Denies headache, focal weakness or sensory changes [] All other systems were reviewed and found to be within normal limits, except as documented in this note. Current Medications Current Medications Current Medications Medications (Trade) Dose Ordered Sig/[facility] Start Time Stop Time Status Last Admin Dose Admin Acetaminophen (Tylenol) 650 mg PRN Q4HRS PRN 01/08/19 14:30 01/09/19 14:29 Fentanyl Citrate (Fentanyl 2ml Vial) 50 mcg PRN Q1HR PRN 01/08/19 14:30 01/09/19 14:29 Nitroglycerin (Nitrostat) 0.4 mg PRN Q5MIN PRN 01/08/19 12:45 Ondansetron HCl (Zofran) 4 mg PRN Q8HRS PRN 01/08/19 14:30 01/09/19 14:29 Allergies Allergies Allergies Coded Allergies Type Severity Reaction Last Updated Verified No Known Drug Allergies 08/27/13 No Physical Exam Physical Exam Constitutional: Well developed, well nourished, no acute distress, non-toxic appearance. [] HENT: Normocephalic, atraumatic Eyes: PERRLA, EOMI, conjunctiva normal, no discharge. [] Neck: Normal range of motion, no tenderness, supple, no stridor. [] Cardiovascular:Heart rate regular rhythm, no murmur [] Lungs & Thorax: Bilateral breath sounds clear to auscultation [] Abdomen: Bowel sounds normal, soft, no tenderness, no masses, no pulsatile masses. [] Skin: Warm, dry, no erythema, no rash. [] Back: No tenderness, no CVA tenderness. [] Extremities: No tenderness, no cyanosis, no clubbing, ROM intact, no edema. [] Neurologic: Alert and oriented X 3, normal motor function, normal sensory function, no focal deficits noted. [] Psychologic: Affect normal, judgement normal, mood normal. [] Current Patient Data Vital Signs Vital Signs Date Time Temp Pulse Resp B/P (MAP) Pulse Ox O2 Delivery O2 Flow Rate FiO2 01/08/19 12:20 97.9 92 16 110/65 (80) 98 Room Air 97.9 Lab Values Laboratory Tests Test 01/08/19 12:50 White Blood Count 5.2 x10^3/uL (4.0-11.0) Red Blood Count 4.69 x10^6/uL (4.30-5.70) Hemoglobin 13.7 g/dL (13.0-17.5) Hematocrit 41.4 % (39.0-53.0) Mean Corpuscular Volume 88 fL (79-100) Mean Corpuscular Hemoglobin 29 pg (25-35) Mean Corpuscular Hemoglobin Concent 33 g/dL (31-37) Red Cell Distribution Width 14.9 % (11.5-14.5) H Platelet Count 161 x10^3/uL (140-400) Neutrophils (%) (Auto) 83 % (31-73) H Lymphocytes (%) (Auto) 9 % (24-48) L Monocytes (%) (Auto) 7 % (0-9) Eosinophils (%) (Auto) 1 % (0-3) Basophils (%) (Auto) 1 % (0-3) Neutrophils # (Auto) 4.3 x10^3/uL (1.8-7.7) Lymphocytes # (Auto) 0.5 x10^3/uL (1.0-4.8) L Monocytes # (Auto) 0.4 x10^3/uL (0.0-1.1) Eosinophils # (Auto) 0.0 x10^3/uL (0.0-0.7) Basophils # (Auto) 0.0 x10^3/uL (0.0-0.2) Sodium Level 144 mmol/L (136-145) Potassium Level 4.2 mmol/L (3.5-5.1) Chloride Level 107 mmol/L (98-107) Carbon Dioxide Level 30 mmol/L (21-32) Anion Gap 7 (6-14) Blood Urea Nitrogen 19 mg/dL (8-26) Creatinine 0.8 mg/dL (0.7-1.3) Estimated GFR (Cockcroft-Gault) 94.0 BUN/Creatinine Ratio 24 (6-20) H Glucose Level 98 mg/dL (70-99) Calcium Level 9.5 mg/dL (8.5-10.1) Total Bilirubin 0.3 mg/dL (0.2-1.0) Aspartate Amino Transferase (AST) 29 U/L (15-37) Alanine Aminotransferase (ALT) 21 U/L (16-63) Alkaline Phosphatase 81 U/L (46-116) Creatine Kinase 105 U/L (39-308) Troponin I Quantitative < 0.017 ng/mL (0.000-0.055) Total Protein 7.0 g/dL (6.4-8.2) Albumin 3.5 g/dL (3.4-5.0) Albumin/Globulin Ratio 1.0 (1.0-1.7) Thyroid Stimulating Hormone (TSH) 1.167 uIU/mL (0.358-3.74) Laboratory Tests 01/08/19 12:50 Laboratory Tests 01/08/19 12:50 EKG EKG [] Radiology/Procedures Radiology/Procedures PROCEDURE: PORTABLE CHEST 1V Indication:Chest pain. TECHNIQUE:Portable AP chest X-ray COMPARISON: 01/05/2019. FINDINGS: Heart is normal in size. Lungs are hyperinflated with coarse interstitial opacities. Right upper lobe surgical changes noted. No pneumothorax or pleural effusion. Visualized bony thorax within normal limits. IMPRESSION: COPD changes. Superimposed atypical/viral infection not ruled out. Questionable trace right pleural effusion. [] Course & Med Decision Making Course & Med Decision Making Pertinent Labs and Imaging studies reviewed. (See chart for details) []Patient resting comfortably on reexamination. No chest pain. Discussed case with hospitalist, Dr. Rodriguez. Agrees to admission and further management patient. Patient stable for admission. Dragon Disclaimer Dragon Disclaimer This electronic medical record was generated, in whole or in part, using a voice recognition dictation system. Departure Departure Impression: Primary Impression: Chest pain Disposition: ADMITTED INPATIENT Admitting Physician: LINDSEY Condition: STABLE Referrals: NATASHA BANSAL MD (PCP) ARMANDO SOTO Jan 08, 2019 12:33
[2019-01-08] MEDS ORDERED: NITROGLYCERIN SUBLINGUAL 0.4 MG BOTTLE OF 25. SL PRN (12:45)
[2019-01-08 13:06] LABS: BASO % 1 % (0-3); EOS % 1 % (0-3); HEMATOCRIT 41.4 % (39.0-53.0); HEMOGLOBIN 13.7 g/dL (13.0-17.5); LYMPH # 0.5 x10^3/uL (1.0-4.8); LYMPH % 9 % (24-48); MEAN CORPUSCULAR HEMOGLOBIN 29 pg (25-35); MEAN CORPUSCULAR HGB CONC 33 g/dL (31-37); MEAN CORPUSCULAR VOLUME 88 fL (79-100); MONO # 0.4 x10^3/uL (0.0-1.1); MONO % 7 % (0-9); NEUT # 4.3 x10^3/uL (1.8-7.7); NEUT % 83 % (31-73); PLATELET COUNT 161 x10^3/uL (140-400); RED BLOOD COUNT 4.69 x10^6/uL (4.30-5.70); RED CELL DISTRIBUTION WIDTH 14.9 % (11.5-14.5); WHITE BLOOD COUNT 5.2 x10^3/uL (4.0-11.0)
[2019-01-08 13:15] LABS: CALCIUM 9.5 mg/dL (8.5-10.1); CREATININE 0.8 mg/dL (0.7-1.3); POTASSIUM 4.2 mmol/L (3.5-5.1)
[2019-01-08 13:24] LABS: ALBUMIN 3.5 g/dL (3.4-5.0); TOTAL BILIRUBIN 0.3 mg/dL (0.2-1.0)
--- NOTE | 2019-01-08 13:32 | RAD ---
Indication:Chest pain. TECHNIQUE:Portable AP chest X-ray COMPARISON: 01/05/2019. FINDINGS: Heart is normal in size. Lungs are hyperinflated with coarse interstitial opacities. Right upper lobe surgical changes noted. No pneumothorax or pleural effusion. Visualized bony thorax within normal limits. IMPRESSION: COPD changes. Superimposed atypical/viral infection not ruled out. Questionable trace right pleural effusion. Electronically signed by: Sidney Wilkinson DO (01/08/2019 1:29 PM) [id number]
--- NOTE | 2019-01-08 13:41 | EKG ---
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
[2019-01-08] MEDS ORDERED: ONDANSETRON PF 4 MG/2 ML VIAL. IV PRN (14:30)
[2019-01-08] MEDS ORDERED: fentaNYL PF VIAL 100 MCG/2 ML VIAL IV PRN (14:30)
[2019-01-08] MEDS ORDERED: ACETAMINOPHEN 325 MG TABLET. PO PRN (14:30)
[2019-01-08] MEDS ORDERED: ACETAMINOPHEN 500 MG TABLET PO ONE (14:30)
--- NOTE | 2019-01-08 15:35 | NUR ---
Patient arrived to room 263 via wheelchair from ER at 1535. VSS. Patient A&OX4. Patient has chest pain 6/10, pointing towards the middle of his chest down, & says it can be sharp. Patient states his Percocet has helped & is wanting it restarted here. The patient, NOBLE SÁNCHEZ, 78 y/o, M admitted by MIKE BLAIR III, DO, was given written information regarding hospital policies, unit procedures and contact persons. Valuables were checked and noted. Will continue to monitor.
[2019-01-08] MEDS ORDERED: OXYC-411 PO (16:37)
[2019-01-08] MEDS ORDERED: PROP150T2 PO (16:37)
[2019-01-08] MEDS ORDERED: LACTULOSE 20 GM/30 ML SOLUTION. PO PRN (17:15)
[2019-01-08] MEDS ORDERED: NITROGLYCERIN SUBLINGUAL 0.4 MG BOTTLE OF 25. SL SCH (17:15)
[2019-01-08] MEDS: oxyCODONE/APAP 10/325 1 TAB TABLET PO PRN (18:34)
[2019-01-08 19:55] VITALS: BP 117/53
--- NOTE | 2019-01-08 20:54 | HP ---
ADMIT DATE: 01/08/2019 CHIEF COMPLAINT: Chest pain. HISTORY OF PRESENT ILLNESS: The patient is a pleasant 78-year-old male who states he had a cardiac catheterization just 3 days ago. He states at that time they found "a stent that was collapsed and so they really opened it with a balloon, but did not remorse stent." Today, he presents with more chest pain on his left side, has been bothering him for a few hours. He took some home meds, but that is not working, rates it 11/01. I discussed the case with ER physician. We are going to admit the patient and consult Cardiology. PAST MEDICAL HISTORY: CAD, previous cardiac stent, lung cancer, hyperlipidemia, hypertension, myocardial infarction, appendectomy, pulmonary lobectomy, back surgery. ALLERGIES: None. FAMILY HISTORY: Coronary artery disease. SOCIAL HISTORY: Does not drink, smoke or take drugs. MEDICATIONS: Reviewed, please refer to the MRAD. REVIEW OF SYSTEMS: GENERAL: No history of weight change, weakness or fevers. SKIN: No bruising, hair changes or rashes. EYES: No blurred, double or loss of vision. NOSE AND THROAT: No history of nosebleeds, hoarseness or sore throat. HEART: He complains of chest pain. LUNGS: Denies cough, hemoptysis, wheezing or shortness of breath. GASTROINTESTINAL: Denies changes in appetite, nausea, vomiting, diarrhea or constipation. GENITOURINARY: No history of frequency, urgency, hesitancy or nocturia. NEUROLOGIC: Denies history of numbness, tingling, tremor or weakness. PSYCHIATRIC: No history of panic, anxiety or depression. ENDOCRINE: No history of heat or cold intolerance, polyuria or polydipsia. EXTREMITIES: Denies muscle weakness, joint pain, pain on walking or stiffness. PHYSICAL EXAMINATION: VITALS: Within normal limits and are stable. GENERAL: No apparent distress. Alert and oriented. HEENT: Head is normocephalic, atraumatic, pupils were equally round and reactive to light and accommodation. NECK: Supple, no JVD, no thyromegaly was noted. LUNGS: Clear to auscultation in all lung black without rhonchi or wheezing. HEART: RRR, S1, S2 present. Peripheral pulses intact, no obvious murmurs were noted. ABDOMEN: Soft, nontender. Positive bowel sounds no organomegaly, normal bowel sounds. EXTREMITIES: Without any cyanosis, clubbing, or edema. Pedal pulses intact, Homans sign is negative. NEUROLOGIC: Normal speech, normal tone. A & O x3, moves all extremities, no obvious focal deficits. PSYCHIATRIC: Normal affect, normal mood. Stable. SKIN: No ulcerations or rashes, good skin turgor, no jaundice. VASCULAR: Good capillary refill, neurovascular bundle appears to be intact. LABORATORY DATA: Troponin is 0. ASSESSMENT AND PLAN: Chest pain with known coronary artery disease. The patient has been admitted. We will consult Cardiology, serial enzymes, serial EKGs, home meds, DVT prophylaxis. Full code. Frequent labs. PROGNOSIS: Guarded. MIKE BLAIR DO DR: MARISA/catherine JOB#: [id number] / [id number]
[2019-01-08] MEDS ORDERED: TAMSULOSIN 0.4 MG CAP.ER.24H. PO SCH (21:00)
[2019-01-08] MEDS ORDERED: ATORVASTATIN CALCIUM 40 MG TABLET. PO SCH (21:00)
[2019-01-08] MEDS ORDERED: PROPAFENONE 150 MG TABLET. PO SCH (21:00)
[2019-01-08] MEDS: TICAGRELOR 90 MG TABLET. PO SCH (21:33)
[2019-01-08 22:08] VITALS: BP 107/51
[2019-01-09 02:41] VITALS: BP 114/58
[2019-01-09 04:43] LABS: BASO % 1 % (0-3); EOS # 0.1 x10^3/uL (0.0-0.7); EOS % 2 % (0-3); HEMATOCRIT 36.6 % (39.0-53.0); HEMOGLOBIN 12.3 g/dL (13.0-17.5); LYMPH % 24 % (24-48); MEAN CORPUSCULAR HEMOGLOBIN 29 pg (25-35); MEAN CORPUSCULAR HGB CONC 34 g/dL (31-37); MEAN CORPUSCULAR VOLUME 88 fL (79-100); MONO # 0.5 x10^3/uL (0.0-1.1); MONO % 11 % (0-9); NEUT # 2.6 x10^3/uL (1.8-7.7); NEUT % 62 % (31-73); PLATELET COUNT 141 x10^3/uL (140-400); RED BLOOD COUNT 4.19 x10^6/uL (4.30-5.70); RED CELL DISTRIBUTION WIDTH 14.8 % (11.5-14.5); WHITE BLOOD COUNT 4.1 x10^3/uL (4.0-11.0)
[2019-01-09 04:55] LABS: ALBUMIN 2.6 g/dL (3.4-5.0); ALBUMIN/GLOBULIN RATIO 0.9 (1.0-1.7); CALCIUM 8.9 mg/dL (8.5-10.1); CREATININE 0.6 mg/dL (0.7-1.3); POTASSIUM 3.9 mmol/L (3.5-5.1); TOTAL BILIRUBIN 0.3 mg/dL (0.2-1.0); TOTAL PROTEIN 5.5 g/dL (6.4-8.2)
[2019-01-09 07:00] VITALS: BP 116/57
[2019-01-09] MEDS ORDERED: ASPIRIN 325 MG TABLET PO SCH (09:00)
[2019-01-09] MEDS ORDERED: METOPROLOL SUCC 24HR ER 25 MG TAB.ER.24H. PO SCH (09:00)
[2019-01-09] MEDS ORDERED: MAGNESIUM OXIDE 400 MG TABLET PO SCH (09:00)
[2019-01-09] MEDS: TICAGRELOR 90 MG TABLET. PO SCH (09:00)
--- NOTE | 2019-01-09 09:50 | PDOC ---
[employer] PROGRESS NOTE Chief Complaint Chief Complaint chest pain History of Present Illness History of Present Illness 01/09/19 Pt was seen and examined Currently does not have pain NPO DW RN Vitals/I&O Vitals/I&O: Vital Signs Date Time Temp Pulse Resp B/P (MAP) Pulse Ox O2 Delivery O2 Flow Rate FiO2 01/09/19 07:00 98.0 57 16 116/57 (76) 100 98.0 01/09/19 02:41 Room Air I & O 01/08/19 01/08/19 01/09/19 15:00 23:00 07:00 Intake Total 200 ml 200 ml Output Total 200 ml Balance 200 ml 0 ml Physical Exam General: Alert, Oriented X3, Cooperative, No acute distress Heart: Regular rate, Normal S1, Normal S2 Lungs: Clear Abdomen: Normal bowel sounds Extremities: No clubbing, No cyanosis, No edema Skin: No rashes Labs Labs: Laboratory Tests Test 01/08/19 12:50 01/08/19 20:45 01/09/19 04:20 White Blood Count 5.2 x10^3/uL (4.0-11.0) 4.1 x10^3/uL (4.0-11.0) Red Blood Count 4.69 x10^6/uL (4.30-5.70) 4.19 x10^6/uL (4.30-5.70) Hemoglobin 13.7 g/dL (13.0-17.5) 12.3 g/dL (13.0-17.5) Hematocrit 41.4 % (39.0-53.0) 36.6 % (39.0-53.0) Mean Corpuscular Volume 88 fL (79-100) 88 fL (79-100) Mean Corpuscular Hemoglobin 29 pg (25-35) 29 pg (25-35) Mean Corpuscular Hemoglobin Concent 33 g/dL (31-37) 34 g/dL (31-37) Red Cell Distribution Width 14.9 % (11.5-14.5) 14.8 % (11.5-14.5) Platelet Count 161 x10^3/uL (140-400) 141 x10^3/uL (140-400) Neutrophils (%) (Auto) 83 % (31-73) 62 % (31-73) Lymphocytes (%) (Auto) 9 % (24-48) 24 % (24-48) Monocytes (%) (Auto) 7 % (0-9) 11 % (0-9) Eosinophils (%) (Auto) 1 % (0-3) 2 % (0-3) Basophils (%) (Auto) 1 % (0-3) 1 % (0-3) Neutrophils # (Auto) 4.3 x10^3/uL (1.8-7.7) 2.6 x10^3/uL (1.8-7.7) Lymphocytes # (Auto) 0.5 x10^3/uL (1.0-4.8) 1.0 x10^3/uL (1.0-4.8) Monocytes # (Auto) 0.4 x10^3/uL (0.0-1.1) 0.5 x10^3/uL (0.0-1.1) Eosinophils # (Auto) 0.0 x10^3/uL (0.0-0.7) 0.1 x10^3/uL (0.0-0.7) Basophils # (Auto) 0.0 x10^3/uL (0.0-0.2) 0.0 x10^3/uL (0.0-0.2) Sodium Level 144 mmol/L (136-145) 144 mmol/L (136-145) Potassium Level 4.2 mmol/L (3.5-5.1) 3.9 mmol/L (3.5-5.1) Chloride Level 107 mmol/L (98-107) 109 mmol/L (98-107) Carbon Dioxide Level 30 mmol/L (21-32) 30 mmol/L (21-32) Anion Gap 7 (6-14) 5 (6-14) Blood Urea Nitrogen 19 mg/dL (8-26) 18 mg/dL (8-26) Creatinine 0.8 mg/dL (0.7-1.3) 0.6 mg/dL (0.7-1.3) Estimated GFR (Cockcroft-Gault) 94.0 131.0 BUN/Creatinine Ratio 24 (6-20) 30 (6-20) Glucose Level 98 mg/dL (70-99) 78 mg/dL (70-99) Calcium Level 9.5 mg/dL (8.5-10.1) 8.9 mg/dL (8.5-10.1) Total Bilirubin 0.3 mg/dL (0.2-1.0) 0.3 mg/dL (0.2-1.0) Aspartate Amino Transf (AST/SGOT) 29 U/L (15-37) 13 U/L (15-37) Alanine Aminotransferase (ALT/SGPT) 21 U/L (16-63) 13 U/L (16-63) Alkaline Phosphatase 81 U/L (46-116) 67 U/L (46-116) Creatine Kinase 105 U/L (39-308) Troponin I Quantitative < 0.017 ng/mL (0.000-0.055) 0.021 ng/mL (0.000-0.055) Total Protein 7.0 g/dL (6.4-8.2) 5.5 g/dL (6.4-8.2) Albumin 3.5 g/dL (3.4-5.0) 2.6 g/dL (3.4-5.0) Albumin/Globulin Ratio 1.0 (1.0-1.7) 0.9 (1.0-1.7) Thyroid Stimulating Hormone (TSH) 1.167 uIU/mL (0.358-3.74) Review of Systems Review of Systems: Denies pain Denies shortness of breath Assessment and Plan Assessmemt and Plan Problems Medical Problems: (1) CAD (coronary artery disease) Status: Chronic (2) Chest pain Status: Acute Assessment Chest pain CAD Plan Probable discharge today Awaiting cardiology consult Serial EKG Cardiac monitoring Full code PO home meds after cardio clears Comment Review of Relevant I have reviewed the following items jj (where applicable) has been applied. Medications: Current Medications Medications (Trade) Dose Ordered Sig/Serge Route PRN Reason Start Time Stop Time Status Last Admin Dose Admin Acetaminophen (Tylenol) 1,000 mg 1X ONCE PO 01/08/19 14:30 01/08/19 14:37 DC 01/08/19 14:38 Atorvastatin Calcium (Lipitor) 80 mg HS PO 01/08/19 21:00 01/08/19 21:34 Oxycodone/ Acetaminophen (Percocet 10/325) 1 tab PRN Q6HRS PRN PO SEVERE PAIN 01/08/19 17:15 01/08/19 18:34 Propafenone HCl (Rythmol) 150 mg BID PO 01/08/19 21:00 01/08/19 21:34 Tamsulosin HCl (Flomax) 0.4 mg HS PO 01/08/19 21:00 01/08/19 21:34 Ticagrelor (Brilinta) 90 mg BID PO 01/08/19 21:00 01/08/19 21:34 MIKE BLAIR III DO Jan 09, 2019 09:50
[2019-01-09 11:00] VITALS: BP 114/58
--- NOTE | 2019-01-09 11:33 | NUR ---
Patient states that the night RN gave morning medications at 0430 this morning & is not wanting to take them.
--- NOTE | 2019-01-09 11:44 | PDOC2 ---
BATSHEVA GOLDMAN BUSINESS BANKING OFFICER 01/09/19 1144: CARDIAC CONSULT DATE OF CONSULT Date of Consult DATE: 01/09/19 TIME: 11:33 REASON FOR CONSULT Reason for Consult: Chest pain REFERRING PHYSICIAN Referring Physician: Mari SOURCE Source: Chart review, Patient HISTORY OF PRESENT ILLNESS HISTORY OF PRESENT ILLNESS This is a pleasant 78 yo male admitted for complains of chest pain. + for aspiration per recent swallow eval. Left AMA from prior admission due to family issues. Presently he is CP free. Reports that at night after sleeping he wakes up and coughing and spits out white mucousy sputum. Denies any globus sensation. Reports ches pain is sharp midchest and no SOA. palpitations but feels like his heart was beating hard. Denies any nausea or vomiting. Verbalized complaince with his medications including his brilinta and ASA. He has not start smoking again. PAST MEDICAL HISTORY Past Medical History Cardiovascular: AFIB (paroxysmal), CAD, HTN, Hyperlipidemia Pulmonary: COPD GI: Constipation Heme/Onc: Cancer (lung) Musculoskeletal: low back pain, Osteoarthritis, Other (cervical stenosis) Rheumatologic: No pertinent hx Infectious disease: No pertinent hx Renal/: No pertinent hx Endocrine: No pertinent hx Dermatology: No pertinent hx PAST SURGICAL HISTORY Past Surgical History Arthroscopy (left shoulder fracture repair, left knee fracture repair, right hand fracture repair), Cataract Removal, Other (RUL lobectomy/VATs; back surgery; PCIstent to RCA 2010, PCI/TATE to LAD and pTCA of RCA stent in 11/2015; recent colonoscopy with possible polypectomies), PCI/stent with recent PTCA due to ISR FAMILY HISTORY Family History Heart Disease (mother and father) SOCIAL HISTORY Social History Smoke: <1 pack per day ALCOHOL: none Drugs: None Lives: Alone CURRENT MEDICATIONS CURRENT MEDICATIONS Current Medications Medications (Trade) Dose Ordered Sig/Serge Route PRN Reason Start Time Stop Time Status Last Admin Dose Admin Acetaminophen (Tylenol) 1,000 mg 1X ONCE PO 01/08/19 14:30 01/08/19 14:37 DC 01/08/19 14:38 Atorvastatin Calcium (Lipitor) 80 mg HS PO 01/08/19 21:00 01/08/19 21:34 Oxycodone/ Acetaminophen (Percocet 10/325) 1 tab PRN Q6HRS PRN PO SEVERE PAIN 01/08/19 17:15 01/08/19 18:34 Propafenone HCl (Rythmol) 150 mg BID PO 01/08/19 21:00 01/08/19 21:34 Tamsulosin HCl (Flomax) 0.4 mg HS PO 01/08/19 21:00 01/08/19 21:34 Ticagrelor (Brilinta) 90 mg BID PO 01/08/19 21:00 01/08/19 21:34 ALLERGIES ALLERGIES: Coded Allergies: wool (Verified Allergy, Intermediate, 01/09/19) ROS Review of System 14 point ROS evaluated with pertinent positives noted per per HPI PHYSICAL EXAM General: Alert, Oriented X3, Cooperative, No acute distress HEENT: Atraumatic, Mucous membr. moist/pink Lungs: Clear to auscultation, Normal air movement Heart: Regular rate (SR), Normal S1, Normal S2, Other (2/6 systolic murmur to LLS border) Abdomen: Soft, No tenderness Extremities: No cyanosis, No edema Skin: No breakdown, No significant lesion Neuro: Normal speech, Sensation intact Psych/Mental Status: Mental status NL, Mood NL MUSCULOSKELETAL: Osteoarthritic changes both hands VITALS/I&O VITALS/I&O: Vital Signs Date Time Temp Pulse Resp B/P (MAP) Pulse Ox O2 Delivery O2 Flow Rate FiO2 01/09/19 11:00 98.4 56 16 114/58 (76) 100 Room Air 98.4 I & O 01/08/19 01/08/19 01/09/19 14:59 22:59 06:59 Intake Total 200 ml 200 ml Output Total 200 ml Balance 200 ml 0 ml LABS Lab: Laboratory Tests Test 01/08/19 12:50 01/08/19 20:45 01/09/19 04:20 White Blood Count 5.2 x10^3/uL (4.0-11.0) 4.1 x10^3/uL (4.0-11.0) Red Blood Count 4.69 x10^6/uL (4.30-5.70) 4.19 x10^6/uL (4.30-5.70) L Hemoglobin 13.7 g/dL (13.0-17.5) 12.3 g/dL (13.0-17.5) L Hematocrit 41.4 % (39.0-53.0) 36.6 % (39.0-53.0) L Mean Corpuscular Volume 88 fL (79-100) 88 fL (79-100) Mean Corpuscular Hemoglobin 29 pg (25-35) 29 pg (25-35) Mean Corpuscular Hemoglobin Concent 33 g/dL (31-37) 34 g/dL (31-37) Red Cell Distribution Width 14.9 % (11.5-14.5) H 14.8 % (11.5-14.5) H Platelet Count 161 x10^3/uL (140-400) 141 x10^3/uL (140-400) Neutrophils (%) (Auto) 83 % (31-73) H 62 % (31-73) Lymphocytes (%) (Auto) 9 % (24-48) L 24 % (24-48) Monocytes (%) (Auto) 7 % (0-9) 11 % (0-9) H Eosinophils (%) (Auto) 1 % (0-3) 2 % (0-3) Basophils (%) (Auto) 1 % (0-3) 1 % (0-3) Neutrophils # (Auto) 4.3 x10^3/uL (1.8-7.7) 2.6 x10^3/uL (1.8-7.7) Lymphocytes # (Auto) 0.5 x10^3/uL (1.0-4.8) L 1.0 x10^3/uL (1.0-4.8) Monocytes # (Auto) 0.4 x10^3/uL (0.0-1.1) 0.5 x10^3/uL (0.0-1.1) Eosinophils # (Auto) 0.0 x10^3/uL (0.0-0.7) 0.1 x10^3/uL (0.0-0.7) Basophils # (Auto) 0.0 x10^3/uL (0.0-0.2) 0.0 x10^3/uL (0.0-0.2) Sodium Level 144 mmol/L (136-145) 144 mmol/L (136-145) Potassium Level 4.2 mmol/L (3.5-5.1) 3.9 mmol/L (3.5-5.1) Chloride Level 107 mmol/L (98-107) 109 mmol/L (98-107) H Carbon Dioxide Level 30 mmol/L (21-32) 30 mmol/L (21-32) Anion Gap 7 (6-14) 5 (6-14) L Blood Urea Nitrogen 19 mg/dL (8-26) 18 mg/dL (8-26) Creatinine 0.8 mg/dL (0.7-1.3) 0.6 mg/dL (0.7-1.3) L Estimated GFR (Cockcroft-Gault) 94.0 131.0 BUN/Creatinine Ratio 24 (6-20) H 30 (6-20) H Glucose Level 98 mg/dL (70-99) 78 mg/dL (70-99) Calcium Level 9.5 mg/dL (8.5-10.1) 8.9 mg/dL (8.5-10.1) Total Bilirubin 0.3 mg/dL (0.2-1.0) 0.3 mg/dL (0.2-1.0) Aspartate Amino Transferase (AST) 29 U/L (15-37) 13 U/L (15-37) L Alanine Aminotransferase (ALT) 21 U/L (16-63) 13 U/L (16-63) L Alkaline Phosphatase 81 U/L (46-116) 67 U/L (46-116) Creatine Kinase 105 U/L (39-308) Troponin I Quantitative < 0.017 ng/mL (0.000-0.055) 0.021 ng/mL (0.000-0.055) Total Protein 7.0 g/dL (6.4-8.2) 5.5 g/dL (6.4-8.2) L Albumin 3.5 g/dL (3.4-5.0) 2.6 g/dL (3.4-5.0) L Albumin/Globulin Ratio 1.0 (1.0-1.7) 0.9 (1.0-1.7) L Thyroid Stimulating Hormone (TSH) 1.167 uIU/mL (0.358-3.74) Laboratory Tests 01/08/19 12:50 01/09/19 04:20 Laboratory Tests 01/08/19 12:50 01/09/19 04:20 ECHOCARDIOGRAM ECHOCARDIOGRAM <Conclusion> The Left Ventricle is borderline dilated. Left ventricle systolic function is severely decreased. The Ejection Fraction is 25-30%. There is severe global hypokinesis of the left ventricle. There is no significant aortic valvular stenosis. Doppler and Color Flow revealed no significant aortic regurgitation. Doppler and Color Flow revealed trace mitral valve regurgitation. Doppler and Color Flow revealed trace tricuspid regurgitation. The PA pressure was estimated at 30 mmHg. DATE: 12/27/18830 HEART CATH HEART CATH LEFT VENTRICULOGRAM: Deferred due to CKD and known prior EF. CORONARY ANGIOGRAPHY: LM is a large caliber vessel with normal angiographic appearance. LAD is a large caliber vessel with a patent proximal stent. The remainder of the vessel has no significant disease. Ramus is a moderate caliber vessel with normal angiographic apeparance. LCx is a moderate caliber non-dominant vessel with normal angiographic appearance. OM1 is a moderate caliber vessel with normal angiographic appearance. RCA is a large caliber dominant vessel with 70% ISR involving ostial/proximal overlapping stents. RPDA and RPL are moderate caliber vessels with normal angiographic appearance. INTERVENTIONAL TECHNIQUE: Due to the presenting symptoms, angiographic findings and recurrent ISR an intervention was performed. Through a 6Fr AR 1 guide catheter, a 0.014'' Prowater wire was advanced to the distal RCA. Balloon angioplasty was performed with a Trek 3.5 compliant and 3.0 NC balloons and there was no significant improvement in the stenosis. Next, a 3.0/10 mm Flextome cutting balloon was used which reduced the lesion to less than 20%. Repeat angioplasty was then performed with a Trek 3.5/8 mm NC balloon at 12 kevin and there was less than 20% residual stenosis. Given the lack of any further dampening on engagement, residual stenosis less than 20%, further intervention was deferred. The patient received 180mg of Ticagrelor at case completion. ELINOR Flow ELINOR Flow (Pre-Intervention): ELINOR-3 ELINOR Flow (Post-Intervention): ELINOR-3 Conclusion 1. Normal left sided filling pressures. 2. Two vessel coronary disease with ISR of the RCA stents 3. Successful balloon angioplasty of the RCA stents with 3.0 cutting balloon and 3.5 mm NC balloon. Recommendations ASA 81mg daily Ticagrelor 90mg bid. Aggressive smoking cessation therapy and high dose statin therapy. DATE: 12/26/18 1630 ASSESSMENT/PLAN ASSESSMENT/PLAN 1. Atypical chest pain: possibly GI and coughing likely from aspiration 2. CAD: Recent PTCA for ISR to RCA 12/26/2018, clinically stable. 3. Hx of Noncompliance 4. HTN: controlled 5. HLP 6. COPD: quit tobacco 3 weeks ago 7. Hx of lung CA: in remission with RUL lobectomy 8. ICM: NYHA 2.EF at 25-30%. known LBBB with first degree AV block. Compensated 9. Notable for aspiration: per recent videoswallow. Defer to PCP Recommendations 1. Continue secondary prevention measures. ASA/brilinta. Continue toprol and lisinopril and statin. NO Class 1C antiarrhythmic agents. 2. Remote hx of PAFIB. No afib from last MCOT and no AFIB episodes as an inpt. Will continue toprol. Stop ryhtmol as class 1C antiarrhythmic is contraindicated with his heart disease. 3. Cardiac rehab encouraged Reinforced compliance. 4. Follow up in office as scheduled. 5. Lifevest discussed and agree to wear it. Will set up today. May DC per cardiac standpoint. 6. Will consider HOME STEREO EQUIPMENT INSTALLER-D in 3 months pending EF after optimization WEN MORALES MD 01/09/192035: CARDIAC CONSULT ASSESSMENT/PLAN ASSESSMENT/PLAN Patient seen and examined. Agree with PROJECTION ENGINEER's assessment and plan. CP with atypical features CAD clinically stable Chr systolic HF clinically compensated Patient agreeable for Lifevest Plan repeat echo prior to office visit to determine need for ICD implantation Thank you for your consultation BATSHEVA GOLDMAN APRN Jan 09, 2019 11:44 WEN MORALES MD Jan 09, 2019 20:36
--- NOTE | 2019-01-09 12:18 | NUR ---
SS following for discharge planning. SS reviewed pt chart. Pt is from home and is currently on room air. No discharge needs noted at this time. SS will continue to follow for discharge planning.
[2019-01-09] MEDS ORDERED: LISINOPRIL 5 MG TABLET. PO SCH (12:30)
[2019-01-09] MEDS: oxyCODONE/APAP 10/325 1 TAB TABLET PO PRN (12:38)
[2019-01-09 15:00] VITALS: BP 94/48
[2019-01-09] MEDS ORDERED: LISI-338 PO (16:22)
--- NOTE | 2019-01-09 17:12 | NUR ---
Discharge Note: [facility] Discharge instructions and discharge home medications reviewed with Patient and a copy given. All questions have been answered and understanding verbalized. The following instructions and handouts were given: discharge instructions, CP info, dysphagia info, smoking cessation Discontinued lines and drains: Peripheral IV intact. Patient discharged to Home or Self Care with Self via Ambulated at 1705. Patient left with life vest.
--- NOTE | 2019-01-10 09:12 | DS ---
DATE OF DISCHARGE: 01/09/2019 ADMISSION DIAGNOSIS: Chest pain. DISCHARGE DIAGNOSIS: Atypical chest pain. HOSPITAL COURSE: The patient is a pleasant 78-year-old male, who has known coronary artery disease. He had a stent within the past few days. He presented with chest pain. There was some concern he could have recurrent disease. We did consult Cardiology. His enzymes remained normal. Yesterday when I saw and examined, he was doing well. Cardiology was okay with him going home. We discharged to home. DISPOSITION: Home. ACTIVITY: As tolerated. DIET: Cardiac. MEDICATIONS: Please see MRAD. TOTAL TIME: 34 minutes. MIKE BLAIR DO DR: MARISA/catherine JOB#: [id number] / [id number]
== END 2019-01-09 17:05 | disposition home or self-care (01) ==
LOC: ER 11:50 → 2 SOUTH 14:30
PROVIDERS: ADMIT Internal Medicine; ATTEND Internal Medicine
DX: R07.89 Other chest pain (principal); I25.10 Atherosclerotic heart disease of native coronary artery without angina pectoris; I10 Essential (primary) hypertension; E78.00 Pure hypercholesterolemia, unspecified; J44.9 Chronic obstructive pulmonary disease, unspecified; B34.9 Viral infection, unspecified; E78.5 Hyperlipidemia, unspecified; F17.210 Nicotine dependence, cigarettes, uncomplicated; I25.2 Old myocardial infarction; Z85.038 Personal history of other malignant neoplasm of large intestine; Z82.49 Family history of ischemic heart disease and other diseases of the circulatory system; Z85.118 Personal history of other malignant neoplasm of bronchus and lung; Z91.19 Patient's noncompliance with other medical treatment and regimen; Z95.5 Presence of coronary angioplasty implant and graft
CPT/HCPCS: 36415; 71045; 80053; 82550; 84443; 84484; 85025; 93005; 99284; 99406; G0378; G0379

== ENCOUNTER 2019-01-13 10:16 | Emergency (ER) | payer OTHER ==
[~2019-01-13] VITALS: Ht 190.5 cm; Wt 51.7 kg
[~2019-01-13 10:16] MED LIST changes: +LISI-338 PO; -NITR0.4T SL; +NITR0.4T24 SL; +OXYC-411 PO
[2019-01-13 10:36] VITALS: BP 138/78
[2019-01-13] MEDS ORDERED: BISACODYL 5 MG TABLET.DR. PO STA (10:46)
[2019-01-13] MEDS ORDERED: MAGNESIUM CITRATE 296 ML SOLUTION. PO ONE (11:00)
[2019-01-13] MEDS ORDERED: SODIUM PHOSPHATES 19/7GM 133 ML ENEMA. PR ONE (11:00)
--- NOTE | 2019-01-13 11:10 | PHYS DOC ---
Past Medical History Past Medical History: CAD, Cancer, High Cholesterol, Hypertension, [place], Other Additional Past Medical Histor: lung ca hx 2000, prostate/colon cancer Past Surgical History: No Surgical History, Appendectomy, Other Additional Past Surgical Histo: lobectomy, cardiac stents, back surgery Alcohol Use: Rarely Drug Use: None Adult General Chief Complaint Chief Complaint: CONSTIPATION HPI HPI Patient is a 78 year old male with a history of hypertension, high cholesterol, KS, who presents to the ED today complaining of constipation for one week. Patient states he is currently on Percocet for chronic pain. He states he was admitted in the hospital and discharged a week ago. He states since he was discharged he has not had a bowel movement. He states he has been trying stool softeners with no relief. Review of Systems Review of Systems Constitutional: Denies fever or chills [] Eyes: Denies change in visual acuity, redness, or eye pain [] HENT: Denies nasal congestion or sore throat [] Respiratory: Denies cough or shortness of breath [] Cardiovascular: No additional information not addressed in HPI [] GI: Reports constipation. Denies abdominal pain, nausea, vomiting, bloody stools or diarrhea [] : Denies dysuria or hematuria [] Musculoskeletal: Denies back pain or joint pain [] Integument: Denies rash or skin lesions [] Neurologic: Denies headache, focal weakness or sensory changes [] All other systems were reviewed and found to be within normal limits, except as documented in this note. Current Medications Current Medications Current Medications Medications (Trade) Dose Ordered Sig/Serge Start Time Stop Time Status Last Admin Dose Admin Bisacodyl (Dulcolax Tab) 10 mg 1X STAT 01/13/19 10:46 01/13/19 10:49 DC 01/13/19 11:15 10 MG Magnesium Citrate (Citroma) 296 ml 1X ONCE 01/13/19 11:00 01/13/19 11:01 DC 01/13/19 11:15 296 ML Sodium Monofluorophosphate (Fleet Adult) 133 ml 1X ONCE 01/13/19 11:00 01/13/19 11:01 DC 01/13/19 11:15 133 ML Allergies Allergies Allergies Coded Allergies Type Severity Reaction Last Updated Verified wool Allergy Intermediate 01/09/19 Yes Physical Exam Physical Exam Constitutional: Well developed, well nourished, no acute distress, non-toxic appearance. [] HENT: Normocephalic, atraumatic, bilateral external ears normal, oropharynx moist, no oral exudates, nose normal. [] Eyes: PERRLA, EOMI, conjunctiva normal, no discharge. [] Neck: Normal range of motion, no tenderness, supple, no stridor. [] Cardiovascular:Heart rate regular rhythm, no murmur [] Lungs & Thorax: Bilateral breath sounds clear to auscultation [] Abdomen: Bowel sounds normal, soft, no tenderness, no masses, no pulsatile masses. [] Rectal exam External rectum appears normal, internal rectal vault noted for a round ball of stool. I tried to move the stool lower rectal region with minimal success because my fingers are short and the stool is firm. Skin: Warm, dry, no erythema, no rash. [] Back: No tenderness, no CVA tenderness. [] Extremities: No tenderness, no cyanosis, no clubbing, ROM intact, no edema. [] Neurologic: Alert and oriented X 3, normal motor function, normal sensory function, no focal deficits noted. [] Psychologic: Affect normal, judgement normal, mood normal. [] Current Patient Data Vital Signs Vital Signs Date Time Temp Pulse Resp B/P (MAP) Pulse Ox O2 Delivery O2 Flow Rate FiO2 01/13/19 10:36 97.8 108 22 138/78 (98) 97 Room Air 97.8 EKG EKG [] Radiology/Procedures Radiology/Procedures [] Course & Med Decision Making Course & Med Decision Making Pertinent Labs and Imaging studies reviewed. (See chart for details) This is a 78-year-old male patient presenting to the ED today with constipation for one week. Patient is on Percocet for chronic pain. Patient was given mag citrate, Dulcolax, Fleet enema �1. Head a successful bowel movement. Feels better. Discharged to home. Discussed measures to manage constipation especially preventative measures while on Percocet considering patient is very adamant about being weaned off Percocet. Dragon Disclaimer Dragon Disclaimer This electronic medical record was generated, in whole or in part, using a voice recognition dictation system. Departure Departure Impression: Primary Impression: Drug induced constipation Disposition: HOME, SELF-CARE Condition: STABLE Referrals: NATASHA BANSAL MD (PCP) follow up with your doctor next week Patient Instructions: Constipation, Adult Additional Instructions: You were evaluated in the emergency room for constipation that appears to be induced by Percocet. Please take MiraLAX, and docusate sodium every day. Increase your dietary fiber intake as well as water intake. Take Mag citrate any time you feel constipated. Also consider doing a suppository or enema if you're constipated. Scripts Magnesium Citrate (MAGNESIUM CITRATE) 296 Ml Solution 296 ML PO ONCE, #296 ML Prov: MADDIE WYATT APRN 01/13/19 Polyethylene Glycol 3350 (MIRALAX) 17 Gm Powd.pack 1 PACKET PO DAILY, #30 PACKET 3 Refills Prov: MADDIE WYATT APRN 01/13/19 MADDIE WYATT APRN Jan 13, 2019 11:10
[2019-01-13] MEDS ORDERED: POLY17PO29 PO (12:16)
[2019-01-13] MEDS ORDERED: MAGN296S9 PO (12:16)
[2019-01-16] MEDS ORDERED: PSYL3.4P PO (13:37)
[2019-01-16] MEDS ORDERED: ACET500T68 PO (13:37)
== END 2019-01-13 12:31 | disposition home or self-care (01) ==
LOC: ER 10:16
DX: K59.03 Drug induced constipation (principal); I10 Essential (primary) hypertension; E78.00 Pure hypercholesterolemia, unspecified; I25.2 Old myocardial infarction; I25.10 Atherosclerotic heart disease of native coronary artery without angina pectoris; Z90.89 Acquired absence of other organs; Z95.5 Presence of coronary angioplasty implant and graft; Z98.890 Other specified postprocedural states; Z88.8 Allergy status to other drugs, medicaments and biological substances
CPT/HCPCS: 99284

== ENCOUNTER 2019-01-16 22:23 | Emergency (ER) | payer OTHER ==
[~2019-01-16] VITALS: Ht 182.9 cm; Wt 50.8 kg
[~2019-01-16 22:23] MED LIST changes: +ACET500T68 PO; +MAGN296S9 PO; +POLY17PO29 PO; +PSYL3.4P PO
--- NOTE | 2019-01-16 23:02 | PHYS DOC ---
Past Medical History Past Medical History: CAD, Cancer, High Cholesterol, Hypertension, [place], Other Additional Past Medical Histor: lung ca hx 2000, prostate/colon cancer Past Surgical History: No Surgical History, Appendectomy, Other Additional Past Surgical Histo: lobectomy, cardiac stents, back surgery Alcohol Use: Rarely Drug Use: None Adult General Chief Complaint Chief Complaint: SUICDAL IDEATION [facility] 78-year-old male presents to the emergency Department with complaints of suicidal thoughts. Patient was discharged from this facility today after workup for GI bleed and chest pain. He states around 7 PM he started having thoughts of hurting himself. States he has no intention of completing these acts however there were still present. He denies any acute complaints at this time. Denies any nausea, vomiting, chest pain, shortness of breath, abdominal pain. Patient denies any homicidal ideation. All other ROS negative unless documented in HPI Review of Systems Review of Systems See Above Allergies Allergies Allergies Coded Allergies Type Severity Reaction Last Updated Verified wool Allergy Intermediate 01/09/19 Yes Physical Exam Physical Exam See Above Constitutional: Well developed, cachectic, no acute distress, non-toxic appearance. [] HENT: Normocephalic, atraumatic, bilateral external ears normal, oropharynx moist, no oral exudates, nose normal. [] Eyes: PERRLA, EOMI, conjunctiva normal, no discharge. [] Cardiovascular:Heart rate regular rhythm, no murmur [] Lungs & Thorax: Bilateral breath sounds clear to auscultation [] Abdomen: Bowel sounds normal, soft, no tenderness, no masses, no pulsatile masses. [] Skin: Warm, dry, no erythema, no rash. [] Extremities: No tenderness, no edema. [] Neurologic: Alert and oriented X 3, no focal deficits noted. [] Psychologic: Affect normal, judgement normal, mood normal. [] Current Patient Data Vital Signs Vital Signs Date Time Temp Pulse Resp B/P (MAP) Pulse Ox O2 Delivery O2 Flow Rate FiO2 01/17/19 00:13 74 18 109/60 (76) 97 Room Air 01/16/19 22:25 97.9 97.9 Lab Values Laboratory Tests Test 01/16/19 23:11 01/16/19 23:50 White Blood Count 3.7 x10^3/uL (4.0-11.0) L Red Blood Count 4.67 x10^6/uL (4.30-5.70) Hemoglobin 13.5 g/dL (13.0-17.5) Hematocrit 40.7 % (39.0-53.0) Mean Corpuscular Volume 87 fL (79-100) Mean Corpuscular Hemoglobin 29 pg (25-35) Mean Corpuscular Hemoglobin Concent 33 g/dL (31-37) Red Cell Distribution Width 14.8 % (11.5-14.5) H Platelet Count 139 x10^3/uL (140-400) L Neutrophils (%) (Auto) 64 % (31-73) Lymphocytes (%) (Auto) 23 % (24-48) L Monocytes (%) (Auto) 11 % (0-9) H Eosinophils (%) (Auto) 1 % (0-3) Basophils (%) (Auto) 1 % (0-3) Neutrophils # (Auto) 2.4 x10^3/uL (1.8-7.7) Lymphocytes # (Auto) 0.9 x10^3/uL (1.0-4.8) L Monocytes # (Auto) 0.4 x10^3/uL (0.0-1.1) Eosinophils # (Auto) 0.0 x10^3/uL (0.0-0.7) Basophils # (Auto) 0.0 x10^3/uL (0.0-0.2) Sodium Level 142 mmol/L (136-145) Potassium Level 4.1 mmol/L (3.5-5.1) Chloride Level 107 mmol/L (98-107) Carbon Dioxide Level 26 mmol/L (21-32) Anion Gap 9 (6-14) Blood Urea Nitrogen 21 mg/dL (8-26) Creatinine 0.8 mg/dL (0.7-1.3) Estimated GFR (Cockcroft-Gault) 94.0 BUN/Creatinine Ratio 26 (6-20) H Glucose Level 116 mg/dL (70-99) H Calcium Level 9.3 mg/dL (8.5-10.1) Total Bilirubin 0.2 mg/dL (0.2-1.0) Aspartate Amino Transferase (AST) 17 U/L (15-37) Alanine Aminotransferase (ALT) 15 U/L (16-63) L Alkaline Phosphatase 77 U/L (46-116) Total Protein 6.1 g/dL (6.4-8.2) L Albumin 3.0 g/dL (3.4-5.0) L Albumin/Globulin Ratio 1.0 (1.0-1.7) Salicylates Level < 2.8 mg/dL (2.8-20.0) L Salicylate Last Dose Date Salicylate Last Dose Time Acetaminophen Level 3.4 mcg/ml (10-30) L Acetaminophen Last Dose Date Acetaminophen Last Dose Time Ethyl Alcohol Level < 10 mg/dL (0-10) Urine Collection Type Unknown Urine Color Yellow Urine Clarity Clear Urine pH 6.0 Urine Specific [place] >=1.030 Urine Protein Negative mg/dL (NEG-TRACE) Urine Glucose (UA) Negative mg/dL (NEG) Urine Ketones (Stick) Trace mg/dL (NEG) Urine Blood Negative (NEG) Urine Nitrite Negative (NEG) Urine Bilirubin Small (NEG) Urine Urobilinogen Dipstick 1.0 mg/dL (0.2 mg/dL) Urine Leukocyte Esterase Negative (NEG) Urine RBC 0 /HPF (0-2) Urine WBC 1-4 /HPF (0-4) Urine Squamous Epithelial Cells Few /LPF Urine Amorphous Sediment Present /HPF Urine Bacteria 0 /HPF (0-FEW) Urine Hyaline Casts Few /HPF Urine Mucus Marked /LPF Laboratory Tests 01/16/19 23:11 Laboratory Tests 01/16/19 23:11 EKG EKG [] Radiology/Procedures Radiology/Procedures [] Course & Med Decision Making Course & Med Decision Making Pertinent Labs and Imaging studies reviewed. (See chart for details) []78-year-old male presents to the emergency Department with complaints of suicidal thoughts. Patient was discharged from this facility today after workup for GI bleed and chest pain. He states around 7 PM he started having thoughts of hurting himself. States he has no intention of completing these acts however there were still present. He denies any acute complaints at this time. Denies any nausea, vomiting, chest pain, shortness of breath, abdominal pain. Patient denies any homicidal ideation. Labs reviewed, no evidence of acute abnormality. Urinalysis negative, toxicology screen unremarkable. PAT team did come to assess patient with regards to his suicidal thoughts, no intention of proceeding. Safety plan established. Daughter is at bedside. Discharged home with safety plan in place per PAT. Godwin Disclaimer Dragon Disclaimer This electronic medical record was generated, in whole or in part, using a voice recognition dictation system. Departure Departure Impression: Primary Impression: Verbalizes suicidal thoughts Disposition: 01 HOME, SELF-CARE Condition: STABLE Referrals: NATASHA BANSAL MD (PCP) Patient Instructions: Suicidal Feelings, How to Help Yourself Additional Instructions: Recommend follow up with PCP 3 - 5 days Return to the ER with worsening symptoms, intractable pain, fever, altered mental status Tylenol/Motrin as needed for pain PAT safety plan established, patient be discharged home discussed with patient and daughter at bedside KEEGAN SHEA MD Jan 16, 2019 23:02
[2019-01-16 23:19] LABS: BASO % 1 % (0-3); EOS % 1 % (0-3); HEMATOCRIT 40.7 % (39.0-53.0); HEMOGLOBIN 13.5 g/dL (13.0-17.5); LYMPH # 0.9 x10^3/uL (1.0-4.8); LYMPH % 23 % (24-48); MEAN CORPUSCULAR HEMOGLOBIN 29 pg (25-35); MEAN CORPUSCULAR HGB CONC 33 g/dL (31-37); MEAN CORPUSCULAR VOLUME 87 fL (79-100); MONO # 0.4 x10^3/uL (0.0-1.1); MONO % 11 % (0-9); NEUT # 2.4 x10^3/uL (1.8-7.7); NEUT % 64 % (31-73); PLATELET COUNT 139 x10^3/uL (140-400); RED BLOOD COUNT 4.67 x10^6/uL (4.30-5.70); RED CELL DISTRIBUTION WIDTH 14.8 % (11.5-14.5); WHITE BLOOD COUNT 3.7 x10^3/uL (4.0-11.0)
[2019-01-16 23:33] LABS: CALCIUM 9.3 mg/dL (8.5-10.1); CREATININE 0.8 mg/dL (0.7-1.3); POTASSIUM 4.1 mmol/L (3.5-5.1)
[2019-01-16 23:35] LABS: ACETAMIN 3.4 mcg/ml (10-30); ETHANOL < 10 mg/dL (0-10); SALIC < 2.8 mg/dL (2.8-20.0)
[2019-01-16 23:37] LABS: TOTAL BILIRUBIN 0.2 mg/dL (0.2-1.0); TOTAL PROTEIN 6.1 g/dL (6.4-8.2)
[2019-01-16 23:57] LABS: BILIRUBIN,URINE SMALL (NEG); CLARITY,URINE CLEAR; COLOR,URINE YELLOW; NITRITE,URINE NEGATIVE (NEG); PROTEIN,URINE NEGATIVE (NEG-TRACE)
[2019-01-17 00:03] LABS: BACTERIA,URINE 0 /HPF (0-FEW); RBC,URINE 0 /HPF (0-2); SQUAMOUS EPITHELIAL CELL,UR FEW /LPF
[2019-01-17 00:04] LABS: AMORPHOUS SEDIMENT,UR PRESENT /HPF; HYALINE CASTS, URINE FEW /HPF
[2019-01-17 00:13] VITALS: BP 109/60
== END 2019-01-17 01:00 | disposition home or self-care (01) ==
LOC: ER 22:23
DX: R45.851 Suicidal ideations (principal); I25.10 Atherosclerotic heart disease of native coronary artery without angina pectoris; E78.00 Pure hypercholesterolemia, unspecified; I10 Essential (primary) hypertension; I25.2 Old myocardial infarction; Z85.038 Personal history of other malignant neoplasm of large intestine; Z85.118 Personal history of other malignant neoplasm of bronchus and lung; Z85.46 Personal history of malignant neoplasm of prostate; Z90.89 Acquired absence of other organs; Z91.09 Other allergy status, other than to drugs and biological substances
CPT/HCPCS: 36415; 80053; 80329; 81001; 85025; 99284; G0480

== ENCOUNTER 2019-02-14 06:19 | Emergency (ER) | payer OTHER ==
[~2019-02-14] VITALS: Ht 188 cm; Wt 50.8 kg
--- NOTE | 2019-02-14 06:43 | PHYS DOC ---
Past Medical History Past Medical History: CAD, Cancer, High Cholesterol, Hypertension, [place], Other Additional Past Medical Histor: lung ca hx 2000, prostate/colon cancer Past Surgical History: Appendectomy, Other Additional Past Surgical Histo: lobectomy, cardiac stents, back surgery Alcohol Use: Rarely Drug Use: None Adult General Chief Complaint Chief Complaint: FLANK PAIN [facility] HPI Patient is a 78-year-old male who presents to the emergency department for evaluation of left-sided abdominal and flank pain, which she states began at about 4 AM. Describes the pain as sharp. He has not had any nausea or vomiting. He has had some problems with constipation in the past but states he takes a pill before bedtime for that, and had a bowel movement yesterday, although he states he was somewhat hard. He has not had any fevers or chills. He has been in this emergency department a few times over the past several weeks for abdominal pain, has had 4 CT scans of his abdomen and pelvis at this facility over the past 2 months, reports have been reviewed. He states he has had some intermittent blood in his stool, since he was hospitalized here for bloody stools about a month ago. He has not arranged outpatient follow-up yet with GI. There are no alleviating or exacerbating factors to his symptoms otherwise. He has not taken any medication for his pain this morning. He states he has prescriptions for pain medication but does not take it regularly-states last took one at 3:00PM. Records from the patient's recent ER and hospital visits have been reviewed. Review of Systems Review of Systems Constitutional: Denies fever or chills [] Eyes: Denies change in visual acuity, redness, or eye pain [] HENT: Denies nasal congestion or sore throat [] Respiratory: Denies cough or shortness of breath [] Cardiovascular: The patient denies any shortness of breath, chest pain, palpitations, or orthopnea [] GI: No additional information not addressed in HPI [] : Denies dysuria or hematuria [] Musculoskeletal: Denies back pain or joint pain [] Integument: Denies rash or skin lesions [] Neurologic: Denies headache, focal weakness or sensory changes [] Endocrine: Denies polyuria or polydipsia [] All other systems were reviewed and found to be within normal limits, except as documented in this note. Current Medications Current Medications Current Medications Medications (Trade) Dose Ordered Sig/Serge Start Time Stop Time Status Last Admin Dose Admin Acetaminophen (Tylenol) 1,000 mg 1X ONCE 02/14/19 06:45 02/14/19 06:46 DC 02/14/19 06:45 1,000 MG Sodium Chloride 1,000 ml @ 100 mls/hr Q10H 02/14/19 06:45 02/14/19 16:44 02/14/19 06:45 100 MLS/HR Allergies Allergies Allergies Coded Allergies Type Severity Reaction Last Updated Verified wool Allergy Intermediate 01/09/19 Yes Physical Exam Physical Exam PHYSICAL EXAM: CONSTITUTIONAL: Thin, cachectic appearing HEAD: normocephalic, atraumatic EENT: PERRL, EOMI. Conjunctivae normal color, sclerae non-icteric; moist mucous membranes. NECK: Supple, non-tender; no meningismus. LUNGS: Lungs CTA, breathing even and unlabored. Normal air movement. HEART: Regular rate and rhythm, no murmur CHEST: No deformity; non-tender ABDOMEN: The abdomen is soft, normal bowel sounds are present, there is tenderness to palpation diffusely of the left upper, mid, and lower abdomen, without rebound or guarding, the remainder of the abdomen is relatively non- tender, no masses or bruits. EXTREM: Normal ROM; no deformity, no calf tenderness. Normal pulses palpable in all extremities. There is no pedal edema. SKIN: No rash; no diaphoresis NEURO: Alert; normal speech and cognition; CN's grossly intact; strength grossly intact without focal deficit. BACK: No CVA TTP.There is no bony tenderness to palpation of the thoracic or lumbar spine. RECTAL EXAM: There is no significant stool in the rectal vault. There is no gross blood present. Prostate is mildly enlarged. Current Patient Data Vital Signs Vital Signs Date Time Temp Pulse Resp B/P (MAP) Pulse Ox O2 Delivery O2 Flow Rate FiO2 02/14/19 07:30 64 14 145/69 (94) 99 Room Air 02/14/19 06:24 97.7 97.7 Lab Values Laboratory Tests Test 02/14/19 06:32 02/14/19 08:43 White Blood Count 4.0 x10^3/uL (4.0-11.0) Red Blood Count 4.54 x10^6/uL (4.30-5.70) Hemoglobin 13.2 g/dL (13.0-17.5) Hematocrit 40.5 % (39.0-53.0) Mean Corpuscular Volume 89 fL (79-100) Mean Corpuscular Hemoglobin 29 pg (25-35) Mean Corpuscular Hemoglobin Concent 33 g/dL (31-37) Red Cell Distribution Width 16.3 % (11.5-14.5) H Platelet Count 198 x10^3/uL (140-400) Neutrophils (%) (Auto) 64 % (31-73) Lymphocytes (%) (Auto) 24 % (24-48) Monocytes (%) (Auto) 9 % (0-9) Eosinophils (%) (Auto) 2 % (0-3) Basophils (%) (Auto) 1 % (0-3) Neutrophils # (Auto) 2.6 x10^3/uL (1.8-7.7) Lymphocytes # (Auto) 0.9 x10^3/uL (1.0-4.8) L Monocytes # (Auto) 0.4 x10^3/uL (0.0-1.1) Eosinophils # (Auto) 0.1 x10^3/uL (0.0-0.7) Basophils # (Auto) 0.0 x10^3/uL (0.0-0.2) Stool Occult Blood Negative (NEG) Sodium Level 145 mmol/L (136-145) Potassium Level 3.8 mmol/L (3.5-5.1) Chloride Level 106 mmol/L (98-107) Carbon Dioxide Level 33 mmol/L (21-32) H Anion Gap 6 (6-14) Blood Urea Nitrogen 18 mg/dL (8-26) Creatinine 0.7 mg/dL (0.7-1.3) Estimated GFR (Cockcroft-Gault) 109.6 BUN/Creatinine Ratio 26 (6-20) H Glucose Level 93 mg/dL (70-99) Lactic Acid Level 0.7 mmol/L (0.4-2.0) Calcium Level 9.3 mg/dL (8.5-10.1) Total Bilirubin 0.3 mg/dL (0.2-1.0) Aspartate Amino Transferase (AST) 24 U/L (15-37) Alanine Aminotransferase (ALT) 33 U/L (16-63) Alkaline Phosphatase 90 U/L (46-116) Total Protein 6.9 g/dL (6.4-8.2) Albumin 3.2 g/dL (3.4-5.0) L Albumin/Globulin Ratio 0.9 (1.0-1.7) L Lipase 73 U/L (73-393) Urine Collection Type Unknown Urine Color Yellow Urine Clarity Clear Urine pH 7.5 Urine Specific [place] 1.015 Urine Protein Negative mg/dL (NEG-TRACE) Urine Glucose (UA) Negative mg/dL (NEG) Urine Ketones (Stick) Negative mg/dL (NEG) Urine Blood Moderate (NEG) Urine Nitrite Negative (NEG) Urine Bilirubin Negative (NEG) Urine Urobilinogen Dipstick 0.2 mg/dL (0.2 mg/dL) Urine Leukocyte Esterase Negative (NEG) Urine RBC 6-10 /HPF (0-2) Urine WBC 0 /HPF (0-4) Urine Squamous Epithelial Cells Few /LPF Urine Amorphous Sediment Present /HPF Urine Bacteria 0 /HPF (0-FEW) Laboratory Tests 02/14/19 06:32 Laboratory Tests 02/14/19 06:32 EKG EKG [] Radiology/Procedures Radiology/Procedures PROCEDURE: ACUTE ABDOMEN SERIES Indication: Abdominal pain TECHNIQUE: AP chest and 2 views of the abdomen pelvis COMPARISON: None FINDINGS: Heart is normal in size. Lungs are hyperinflated. Right lung apical scarring noted. No pneumothorax or large pleural effusion. No abnormally dilated bowel loops or air-fluid levels. IMPRESSION: 1. Advanced COPD changes. 2. No evidence of high-grade bowel obstruction. 3. Suggestion of trace right pleural effusion. [] Course & Med Decision Making Course & Med Decision Making Pertinent Labs and Imaging studies reviewed. (See chart for details) [] 9:30 AM: The patient's condition remains stable. His symptoms have resolved and he is pain-free at this time. His urine specimen was catheter obtained, and I suspect that this accounts for his trace hematuria, not the presence of a kidney stone, which were not noted on prior CT scans. I do not believe the patient warrants further imaging at this time. I believe the risk of radiation outweighs the potential benefit from his further imaging. I discussed importance of close GI follow-up, use of a daily stool softener, limiting the use of narcotic pain medication, and the importance of close follow-up with his PCP as well as GI. Return precautions were discussed in detail. Dragon Disclaimer Dragon Disclaimer This electronic medical record was generated, in whole or in part, using a voice recognition dictation system. Departure Departure Impression: Primary Impression: Abdominal pain Disposition: HOME, SELF-CARE Condition: STABLE Referrals: NATASHA BANSAL MD (PCP) CORNEL VALLE MD Patient Instructions: Abdominal Pain, Constipation, Adult SHANT HERNANDEZ MD Feb 14, 2019 06:43
[2019-02-14] MEDS ORDERED: IV NORMAL SALINE 1000ML BAG 1,000 ML IV SCH (06:45)
[2019-02-14] MEDS ORDERED: ACETAMINOPHEN 500 MG TABLET PO ONE (06:45)
[2019-02-14 06:48] LABS: BASO % 1 % (0-3); EOS # 0.1 x10^3/uL (0.0-0.7); EOS % 2 % (0-3); HEMATOCRIT 40.5 % (39.0-53.0); HEMOGLOBIN 13.2 g/dL (13.0-17.5); LYMPH # 0.9 x10^3/uL (1.0-4.8); LYMPH % 24 % (24-48); MEAN CORPUSCULAR HEMOGLOBIN 29 pg (25-35); MEAN CORPUSCULAR HGB CONC 33 g/dL (31-37); MEAN CORPUSCULAR VOLUME 89 fL (79-100); MONO # 0.4 x10^3/uL (0.0-1.1); MONO % 9 % (0-9); NEUT # 2.6 x10^3/uL (1.8-7.7); NEUT % 64 % (31-73); PLATELET COUNT 198 x10^3/uL (140-400); RED BLOOD COUNT 4.54 x10^6/uL (4.30-5.70); RED CELL DISTRIBUTION WIDTH 16.3 % (11.5-14.5)
[2019-02-14 06:56] LABS: CALCIUM 9.3 mg/dL (8.5-10.1); CREATININE 0.7 mg/dL (0.7-1.3); GFR 109.6; POTASSIUM 3.8 mmol/L (3.5-5.1)
--- NOTE | 2019-02-14 07:01 | RAD ---
Indication: Abdominal pain TECHNIQUE: AP chest and 2 views of the abdomen pelvis COMPARISON: None FINDINGS: Heart is normal in size. Lungs are hyperinflated. Right lung apical scarring noted. No pneumothorax or large pleural effusion. No abnormally dilated bowel loops or air-fluid levels. IMPRESSION: 1. Advanced COPD changes. 2. No evidence of high-grade bowel obstruction. 3. Suggestion of trace right pleural effusion. Electronically signed by: Sidney Wilkinson DO (02/14/2019 6:58 AM) [id number]
[2019-02-14 07:02] LABS: ALBUMIN 3.2 g/dL (3.4-5.0); ALBUMIN/GLOBULIN RATIO 0.9 (1.0-1.7); TOTAL BILIRUBIN 0.3 mg/dL (0.2-1.0); TOTAL PROTEIN 6.9 g/dL (6.4-8.2)
[2019-02-14 07:12] LABS: FECAL OB PT NEGATIVE (NEG)
[2019-02-14 08:53] LABS: BILIRUBIN,URINE NEGATIVE (NEG); CLARITY,URINE CLEAR; COLOR,URINE YELLOW; NITRITE,URINE NEGATIVE (NEG); PH,URINE 7.5; PROTEIN,URINE NEGATIVE (NEG-TRACE); UROBILINOGEN,URINE 0.2 mg/dL (0.2 mg/dL)
[2019-02-14 09:00] VITALS: BP 136/68
[2019-02-14 09:19] LABS: BACTERIA,URINE 0 /HPF (0-FEW); WBC,URINE 0 /HPF (0-4)
[2019-02-14 09:20] LABS: AMORPHOUS SEDIMENT,UR PRESENT /HPF; SQUAMOUS EPITHELIAL CELL,UR FEW /LPF
[2019-02-14] MEDS ORDERED: DICY20TA3 PO (09:41)
== END 2019-02-14 09:56 | disposition home or self-care (01) ==
LOC: ER 06:19
DX: R10.84 Generalized abdominal pain (principal); K92.1 Melena; E78.00 Pure hypercholesterolemia, unspecified; I10 Essential (primary) hypertension; I25.10 Atherosclerotic heart disease of native coronary artery without angina pectoris; I25.2 Old myocardial infarction; Z90.89 Acquired absence of other organs; Z95.5 Presence of coronary angioplasty implant and graft; Z98.890 Other specified postprocedural states; Z88.8 Allergy status to other drugs, medicaments and biological substances
CPT/HCPCS: 36415; 74022; 80053; 81001; 82274; 83605; 83690; 85025; 99285; J7030

== ENCOUNTER 2019-02-28 14:15 | Inpatient (IN) | payer OTHER ==
[~2019-02-28] VITALS: Ht 182.9 cm; Wt 51.7 kg
[~2019-02-28 14:15] MED LIST changes: +DICY20TA3 PO
--- NOTE | 2019-02-28 15:07 | RAD ---
EXAM: Chest, single view. HISTORY: Chest pain. COMPARISON: 02/14/2019 FINDINGS: A frontal view of the chest is obtained. There is stable blunting of the right costophrenic angle likely due to right hemithorax volume loss and basilar pleural-parenchymal scarring. There is a surgical anastomosis with adjacent clips within the right hilum and suprahilar region and there is right apical pleural thickening or loculated fluid. There is emphysema. The heart is normal in size. IMPRESSION: 1. Stable postoperative changes involving the right thorax. This includes blunting of the right costophrenic angle likely due to hemithorax volume loss and scarring rather than a small pleural effusion. 2. Emphysema. Electronically signed by: Dawn Ernst MD (02/28/2019 3:04 PM) [place] [id number]
[2019-02-28 15:19] LABS: BASO % 1 % (0-3); EOS # 0.1 x10^3/uL (0.0-0.7); EOS % 1 % (0-3); HEMATOCRIT 40.6 % (39.0-53.0); HEMOGLOBIN 13.4 g/dL (13.0-17.5); LYMPH # 0.5 x10^3/uL (1.0-4.8); LYMPH % 11 % (24-48); MEAN CORPUSCULAR HEMOGLOBIN 30 pg (25-35); MEAN CORPUSCULAR HGB CONC 33 g/dL (31-37); MEAN CORPUSCULAR VOLUME 90 fL (79-100); MONO # 0.4 x10^3/uL (0.0-1.1); MONO % 9 % (0-9); NEUT # 3.7 x10^3/uL (1.8-7.7); NEUT % 78 % (31-73); PLATELET COUNT 206 x10^3/uL (140-400); RED BLOOD COUNT 4.53 x10^6/uL (4.30-5.70); RED CELL DISTRIBUTION WIDTH 16.3 % (11.5-14.5); WHITE BLOOD COUNT 4.8 x10^3/uL (4.0-11.0)
--- NOTE | 2019-02-28 15:19 | EKG ---
[facility] [address] [place] [id number] Test Date: 2019-02-28 Test Time: 14:26:50 Pat Name: NOBLE SÁNCHEZ Department: Room: Gender: M [employer]: : [id number] Requested By: ROCIO BROWN Order Number: [id number] Reading MD: Measurements Intervals [place] Rate: 99 P: 83 MA: 196 QRS: -9 QRSD: 126 T: 79 QT: 366 QTc: 475 Interpretive Statements SINUS RHYTHM LEFTWARD AXIS LEFT BUNDLE BRANCH BLOCK ABNORMAL ECG No previous ECG available for comparison
[2019-02-28 15:29] LABS: PROTHROMBIN TIME PATIENT 12.7 SEC (11.7-14.0)
[2019-02-28 15:33] LABS: CALCIUM 9.1 mg/dL (8.5-10.1); CREATININE 0.8 mg/dL (0.7-1.3); POTASSIUM 3.8 mmol/L (3.5-5.1)
[2019-02-28 15:37] LABS: ALBUMIN 3.2 g/dL (3.4-5.0); ALBUMIN/GLOBULIN RATIO 0.9 (1.0-1.7); TOTAL BILIRUBIN 0.3 mg/dL (0.2-1.0); TOTAL PROTEIN 6.8 g/dL (6.4-8.2)
[2019-02-28] MEDS ORDERED: ASPIRIN CHEWABLE 81 MG TABLET. PO ONE (16:45)
--- NOTE | 2019-02-28 16:51 | PHYS DOC ---
Past Medical History Past Medical History: CAD, Cancer, High Cholesterol, Hypertension, AL, Other Additional Past Medical Histor: lung ca hx 2000, prostate/colon cancer Past Surgical History: Appendectomy, Other Additional Past Surgical Histo: lobectomy, cardiac stents, back surgery Alcohol Use: Rarely Drug Use: None Adult General Chief Complaint Chief Complaint: CHEST PAIN HPI HPI Patient is a 78 year old male patient with history of coronary artery disease, hypertension and dyslipidemia who presents with obtaining of chest pain. Patient complaining of constant and aching substernal chest pain for the last 3-4 days with episodes of sharp chest pain with activity and movement. Patient states the pain sometimes radiated to his jaw and getting of nausea and dizziness without shortness of breath, fever and chills, cough and congestion, vomiting. Patient rated his pain 6/10 that improved at arrival to ER. Patient states he cannot return to his home because he has mice and bugs at his home and he sleeps at his trunk for the last several days. Review of Systems Review of Systems Constitutional: Denies fever or chills [] Eyes: Denies change in visual acuity, redness, or eye pain [] HENT: Denies nasal congestion or sore throat [] Respiratory: Denies cough or shortness of breath [] Cardiovascular: No additional information not addressed in HPI [] GI: Denies abdominal pain, vomiting, bloody stools or diarrhea, reports nausea [] : Denies dysuria or hematuria [] Musculoskeletal: Denies back pain or joint pain [] Integument: Denies rash or skin lesions [] Neurologic: Denies headache, focal weakness or sensory changes [] Endocrine: Denies polyuria or polydipsia [] All other systems were reviewed and found to be within normal limits, except as documented in this note. Current Medications Current Medications Current Medications Medications (Trade) Dose Ordered Sig/Serge Start Time Stop Time Status Last Admin Dose Admin Aspirin (Children'S Aspirin) 324 mg 1X ONCE 02/28/19 16:45 02/28/19 16:46 DC 02/28/19 16:51 324 MG Allergies Allergies Allergies Coded Allergies Type Severity Reaction Last Updated Verified wool Allergy Intermediate 01/09/19 Yes Physical Exam Physical Exam Constitutional: Well developed, very thin, no acute distress, non-toxic appearance. [] HENT: Normocephalic, atraumatic, bilateral external ears normal, oropharynx moist, no oral exudates, nose normal. [] Eyes: PERRLA, EOMI, conjunctiva normal, no discharge. [] Neck: Normal range of motion, no tenderness, supple, no stridor. [] Cardiovascular:Heart rate regular rhythm, no murmur [] Lungs & Thorax: Bilateral breath sounds clear to auscultation [] Abdomen: Bowel sounds normal, soft, no tenderness, no masses, no pulsatile masses. [] Skin: Warm, dry, no erythema, no rash. [] Back: No tenderness, no CVA tenderness. [] Extremities: No tenderness, no cyanosis, no clubbing, ROM intact, no edema. [] Neurologic: Alert and oriented X 3, normal motor function, normal sensory function, no focal deficits noted. [] Psychologic: Affect normal, judgement normal, mood normal. [] Current Patient Data Vital Signs Vital Signs Date Time Temp Pulse Resp B/P (MAP) Pulse Ox O2 Delivery O2 Flow Rate FiO2 02/28/19 14:26 98.2 95 18 113/67 (82) 97 Room Air 98.2 Lab Values Laboratory Tests Test 02/28/19 15:08 White Blood Count 4.8 x10^3/uL (4.0-11.0) Red Blood Count 4.53 x10^6/uL (4.30-5.70) Hemoglobin 13.4 g/dL (13.0-17.5) Hematocrit 40.6 % (39.0-53.0) Mean Corpuscular Volume 90 fL (79-100) Mean Corpuscular Hemoglobin 30 pg (25-35) Mean Corpuscular Hemoglobin Concent 33 g/dL (31-37) Red Cell Distribution Width 16.3 % (11.5-14.5) H Platelet Count 206 x10^3/uL (140-400) Neutrophils (%) (Auto) 78 % (31-73) H Lymphocytes (%) (Auto) 11 % (24-48) L Monocytes (%) (Auto) 9 % (0-9) Eosinophils (%) (Auto) 1 % (0-3) Basophils (%) (Auto) 1 % (0-3) Neutrophils # (Auto) 3.7 x10^3/uL (1.8-7.7) Lymphocytes # (Auto) 0.5 x10^3/uL (1.0-4.8) L Monocytes # (Auto) 0.4 x10^3/uL (0.0-1.1) Eosinophils # (Auto) 0.1 x10^3/uL (0.0-0.7) Basophils # (Auto) 0.0 x10^3/uL (0.0-0.2) Prothrombin Time 12.7 SEC (11.7-14.0) Prothrombin Time INR 1.0 (0.8-1.1) Sodium Level 146 mmol/L (136-145) H Potassium Level 3.8 mmol/L (3.5-5.1) Chloride Level 107 mmol/L (98-107) Carbon Dioxide Level 31 mmol/L (21-32) Anion Gap 8 (6-14) Blood Urea Nitrogen 19 mg/dL (8-26) Creatinine 0.8 mg/dL (0.7-1.3) Estimated GFR (Cockcroft-Gault) 94.0 BUN/Creatinine Ratio 24 (6-20) H Glucose Level 77 mg/dL (70-99) Calcium Level 9.1 mg/dL (8.5-10.1) Magnesium Level 2.0 mg/dL (1.8-2.4) Total Bilirubin 0.3 mg/dL (0.2-1.0) Aspartate Amino Transferase (AST) 13 U/L (15-37) L Alanine Aminotransferase (ALT) 16 U/L (16-63) Alkaline Phosphatase 84 U/L (46-116) Creatine Kinase 62 U/L (39-308) Troponin I Quantitative < 0.017 ng/mL (0.000-0.055) KG-Zly-T-Type Natriuretic Peptide 1880 pg/mL (0-449) H Total Protein 6.8 g/dL (6.4-8.2) Albumin 3.2 g/dL (3.4-5.0) L Albumin/Globulin Ratio 0.9 (1.0-1.7) L Lipase 94 U/L (73-393) Laboratory Tests 02/28/19 15:08 Laboratory Tests 02/28/19 15:08 EKG EKG EKG interpreted by me. EKG at 1426 showed normal sinus rhythm at rate of 99, left fourth axis, left bundle branch block, no acute ST and T-wave elevation, unchanged from EKG dated 01/13/2019 Radiology/Procedures Radiology/Procedures [][facility] [address] [place] [address] IMAGING REPORT Signed PATIENT: NOBLE SÁNCHEZ ACCOUNT: [id number] : 1940 LOCATION: ER AGE: 78 SEX: M EXAM STATUS: REG ER ORD. PHYSICIAN: ROCIO BROWN MD REASON: chest pain PROCEDURE: PORTABLE CHEST 1V EXAM: Chest, single view. HISTORY: Chest pain. COMPARISON: 02/14/2019 FINDINGS: A frontal view of the chest is obtained. There is stable blunting of the right costophrenic angle likely due to right hemithorax volume loss and basilar pleural-parenchymal scarring. There is a surgical anastomosis with adjacent clips within the right hilum and suprahilar region and there is right apical pleural thickening or loculated fluid. There is emphysema. The heart is normal in size. IMPRESSION: 1. Stable postoperative changes involving the right thorax. This includes blunting of the right costophrenic angle likely due to hemithorax volume loss and scarring rather than a small pleural effusion. 2. Emphysema. Electronically signed by: Dawn Wood MD (02/28/2019 3:04 PM) [facility] DICTATED and SIGNED BY: DAWN WOOD MD DATE: 02/28/19 1504 Course & Med Decision Making Course & Med Decision Making Pertinent Labs and Imaging studies reviewed. (See chart for details) Evaluation of patient in ER showed 78-year-old male patient with heart score of 7 with complaining of chest pain for 3 or 4 days that getting worse with m ovement. Patient was very thin and had unstable living situation. Labs showed elevation of BNP without abnormal cardiac enzyme.Patient requiring admission for further evaluation and treatment. Discussed with Dr. Cortez who is in agreement with admission. Discussed findings and plan with patient and family, who acknowledge understanding and agreement. Dragon Disclaimer Dragon Disclaimer This electronic medical record was generated, in whole or in part, using a voice recognition dictation system. Departure Departure Impression: Primary Impression: Acute chest pain Additional Impressions: CHF (congestive heart failure) Malnutrition Hypoalbuminemia Living accommodation issues Disposition: 09 ADMITTED INPATIENT (admitted at 1652) Admitting Physician: LINDSEY (Dr. Cortez accepted admission at 1651) Condition: IMPROVED Referrals: NATASHA BANSAL MD (PCP) The HEART Score for CP Pts HEART Score for Chest Pain: HEART Score for Chest Pain Response (Comments) Value History Slighlty/Non-Suspicious 0 ECG Nonspecific Repolarizatio 1 Age > 65 2 Risk Factors >3 Risk Factors or Hx CAD 2 Troponin >3 x Normal Limit 2 Total 7 Risk Factors: Risk Factors: DM, Current or recent (<one month) smoker, HTN, HLP, family history of CAD, obesity. Risk Scores: Score 0 - 3: 2.5% MACE over next 6 weeks - Discharge Home Score 4 - 6: 20.3% MACE over next 6 weeks - Admit for Clinical Observation Score 7 - 10: 72.7% MACE over next 6 weeks - Early Invasive Strategies Problem Qualifiers Additional Impressions: CHF (congestive heart failure) Heart failure type: unspecified Heart failure chronicity: unspecified Qualified Codes: I50.9 - Heart failure, unspecified Malnutrition Malnutrition type: unspecified type Qualified Codes: E46 - Unspecified protein-calorie malnutrition ROCIO BROWN MD Feb 28, 2019 16:51
[2019-02-28 18:30] VITALS: BP 119/62
[2019-02-28] MEDS ORDERED: ACETAMINOPHEN 500 MG TABLET PO PRN (19:45)
[2019-02-28] MEDS ORDERED: NITROGLYCERIN SUBLINGUAL 0.4 MG BOTTLE OF 25. SL PRN (19:45)
--- NOTE | 2019-02-28 20:25 | PDOC1 ---
History and Physical Date of Admission Date of Admission DATE: 02/28/19 TIME: 20:20 Source Source: Chart review, Patient History of Present Illness History of Present Illness Mr. Suh, is a 78 year old male admit with acute chest pain, worsening of constant and aching substernal chest pain for the last 3-4 days with episodes of sharp chest pain with activity and movement. pain 5/10 Some pain to jaw, he feels improved since admit He moves here from [place] where he had prior treatmetn for prostate cancer and has a wound with scarring on his sacral area that is painful He has had alejandra enausea and dizziness without shortness of breath, fever and ch ills, cough and congestion, vomiting. he has trouble at home with the cleanliness of living conditions Past Medical History Past Medical History coronary artery disease, hypertension and dyslipidemia, and prostate cancer s/p rad therapy Cardiovascular: AFIB, CAD, HTN, Hyperlipidemia Pulmonary: COPD GI: Constipation Heme/Onc: Cancer Hepatobiliary: No pertinent hx Psych: No pertinent hx Musculoskeletal: low back pain, Osteoarthritis, Other Rheumatologic: No pertinent hx Infectious disease: No pertinent hx Renal/: No pertinent hx Endocrine: No pertinent hx Past Surgical History Past Surgical History: Arthroscopy, Cataract Removal, Other Family History Family History: Heart Disease Social History ALCOHOL: none Drugs: None Current Problem List Problem List Problems Medical Problems: (1) Acute chest pain Status: Acute (2) CHF (congestive heart failure) Status: Acute (3) Hypoalbuminemia Status: Acute (4) Living accommodation issues Status: Acute (5) Malnutrition Status: Acute Current Medications Current Medications Current Medications Aspirin (Children'S Aspirin) 324 mg 1X ONCE PO Last administered on 02/28/19at 16:51; Start 02/28/19 at 16:45; Stop 02/28/19 at 16:46; Status DC Acetaminophen (Tylenol) 500 mg PRN Q6HRS PRN PO HEADACHE / TEMP; Start 02/28/19 at 19:45 Atorvastatin Calcium (Lipitor) 80 mg HS PO ; Start 02/28/19 at 21:00 Lisinopril (Prinivil) 5 mg DAILY PO ; Start 03/01/19 at 09:00 Magnesium Oxide (Magnesium Oxide) 400 mg DAILY PO ; Start 03/01/19 at 09:00 Metoprolol Succinate (Toprol Xl) 25 mg DAILY PO ; Start 03/01/19 at 09:00 Nitroglycerin (Nitrostat) 0.4 mg PRN Q5MIN PRN SL CHEST PAIN; Start 02/28/19 at 19:45 Oxycodone/ Acetaminophen (Percocet 10/325) 1 tab PRN Q6HRS PRN PO PAIN; Start 02/28/19 at 19:45 Polyethylene Glycol (miraLAX PACKET) 17 gm DAILY PO ; Start 03/01/19 at 09:00 Psyllium Hydrophilic Mucilloid (Metamucil Fiber Packet) 1 pkt DAILY PO ; Start 03/01/19 at 09:00 Tamsulosin HCl (Flomax) 0.4 mg HS PO ; Start 02/28/19 at 21:00 Ticagrelor (Brilinta) 90 mg BID PO ; Start 02/28/19 at 21:00 Active Scripts Active Dicyclomine Hcl 20 Mg Tablet 1 Tab PO QID PRN Metamucil Fiber Singles Packet (Psyllium Husk/Aspartame) 3.4 Gm Powd.pack 1 Pkt PO DAILY 14 Days Acetaminophen 500 Mg Tablet 500 Mg PO PRN Q6HRS PRN 14 Days Magnesium Citrate 296 Ml Solution 296 Ml PO ONCE Miralax (Polyethylene Glycol 3350) 17 Gm Powd.pack 1 Packet PO DAILY Brilinta (Ticagrelor) 90 Mg Tablet 90 Mg PO BID 30 Days Mag-Oxide (Magnesium Oxide) 400 Mg Tablet 400 Mg PO DAILY 30 Days Metoprolol Succinate ( Xl ) (Metoprolol Succinate) 25 Mg Tab.er.24h 25 Mg PO DAILY 30 Days Lactulose 20 Gm/30 Ml Solution 10 Gm PO DAILY PRN Reported Lisinopril 5 Mg Tablet 1 Tab PO DAILY Oxycodone-Acetaminophen 10-325 (Oxycodone Hcl/Acetaminophen) 1 Each Tablet 10- 325 Mg PO PRN Q6HRS PRN Flomax (Tamsulosin Hcl) 0.4 Mg Cap.er.24h 0.4 Mg PO HS Atorvastatin Calcium 40 Mg Tablet 80 Mg PO HS Nitrostat (Nitroglycerin) 0.4 Mg Tab.subl 0.4 Mg SL PRN Q5MIN Allergies Allergies: Coded Allergies: wool (Verified Allergy, Intermediate, 01/09/19) ROS General: YES: Chills, Fatigue; No: Night Sweats, Malaise, Appetite, Other PSYCHOLOGICAL ROS: YES: Depression, Sleep disturbances; No: Anxiety, Behavioral Disorder, Concentration difficultie, Decreased libido, Disorientation, Hallucinations, Hostility, Irritablity, Memory difficulties, Mood Swings, Obsessive thoughts, Physical abuse, Sexual abuse, Suicidal ideation, Other Eyes: No Blurry vision, No Decreased vision, No Double vision, No Dry eyes, No Excessive tearing, No Eye Pain, No Itchy Eyes, No Loss of vision, No Photophobia, No Scotomata, No Uses contacts, No Uses glasses, No Other Physical Exam General: Alert, No acute distress HEENT: Atraumatic, PERRLA, EOMI Lungs: Clear to auscultation, Normal air movement Heart: S1S2, no gallops, irregularly irregular Abdomen: Normal bowel sounds, Soft Extremities: No clubbing, No edema, Normal pulses Skin: No rashes Neuro: Sensation intact, Cranial nerves 3-12 NL Psych/Mental Status: Mood NL Vitals Vitals Vital Signs Date Time Temp Pulse Resp B/P (MAP) Pulse Ox O2 Delivery O2 Flow Rate FiO2 02/28/19 18:30 97.9 94 16 119/62 (81) 98 Room Air 97.9 Labs Labs Laboratory Tests Test 02/28/19 15:08 White Blood Count 4.8 x10^3/uL (4.0-11.0) Red Blood Count 4.53 x10^6/uL (4.30-5.70) Hemoglobin 13.4 g/dL (13.0-17.5) Hematocrit 40.6 % (39.0-53.0) Mean Corpuscular Volume 90 fL (79-100) Mean Corpuscular Hemoglobin 30 pg (25-35) Mean Corpuscular Hemoglobin Concent 33 g/dL (31-37) Red Cell Distribution Width 16.3 % (11.5-14.5) Platelet Count 206 x10^3/uL (140-400) Neutrophils (%) (Auto) 78 % (31-73) Lymphocytes (%) (Auto) 11 % (24-48) Monocytes (%) (Auto) 9 % (0-9) Eosinophils (%) (Auto) 1 % (0-3) Basophils (%) (Auto) 1 % (0-3) Neutrophils # (Auto) 3.7 x10^3/uL (1.8-7.7) Lymphocytes # (Auto) 0.5 x10^3/uL (1.0-4.8) Monocytes # (Auto) 0.4 x10^3/uL (0.0-1.1) Eosinophils # (Auto) 0.1 x10^3/uL (0.0-0.7) Basophils # (Auto) 0.0 x10^3/uL (0.0-0.2) Prothrombin Time 12.7 SEC (11.7-14.0) Prothromb Time International Ratio 1.0 (0.8-1.1) Sodium Level 146 mmol/L (136-145) Potassium Level 3.8 mmol/L (3.5-5.1) Chloride Level 107 mmol/L (98-107) Carbon Dioxide Level 31 mmol/L (21-32) Anion Gap 8 (6-14) Blood Urea Nitrogen 19 mg/dL (8-26) Creatinine 0.8 mg/dL (0.7-1.3) Estimated GFR (Cockcroft-Gault) 94.0 BUN/Creatinine Ratio 24 (6-20) Glucose Level 77 mg/dL (70-99) Calcium Level 9.1 mg/dL (8.5-10.1) Magnesium Level 2.0 mg/dL (1.8-2.4) Total Bilirubin 0.3 mg/dL (0.2-1.0) Aspartate Amino Transf (AST/SGOT) 13 U/L (15-37) Alanine Aminotransferase (ALT/SGPT) 16 U/L (16-63) Alkaline Phosphatase 84 U/L (46-116) Creatine Kinase 62 U/L (39-308) Troponin I Quantitative < 0.017 ng/mL (0.000-0.055) TW-Spn-X-Type Natriuretic Peptide 1880 pg/mL (0-449) Total Protein 6.8 g/dL (6.4-8.2) Albumin 3.2 g/dL (3.4-5.0) Albumin/Globulin Ratio 0.9 (1.0-1.7) Lipase 94 U/L (73-393) Laboratory Tests Test 02/28/19 15:08 White Blood Count 4.8 x10^3/uL (4.0-11.0) Red Blood Count 4.53 x10^6/uL (4.30-5.70) Hemoglobin 13.4 g/dL (13.0-17.5) Hematocrit 40.6 % (39.0-53.0) Mean Corpuscular Volume 90 fL (79-100) Mean Corpuscular Hemoglobin 30 pg (25-35) Mean Corpuscular Hemoglobin Concent 33 g/dL (31-37) Red Cell Distribution Width 16.3 % (11.5-14.5) Platelet Count 206 x10^3/uL (140-400) Neutrophils (%) (Auto) 78 % (31-73) Lymphocytes (%) (Auto) 11 % (24-48) Monocytes (%) (Auto) 9 % (0-9) Eosinophils (%) (Auto) 1 % (0-3) Basophils (%) (Auto) 1 % (0-3) Neutrophils # (Auto) 3.7 x10^3/uL (1.8-7.7) Lymphocytes # (Auto) 0.5 x10^3/uL (1.0-4.8) Monocytes # (Auto) 0.4 x10^3/uL (0.0-1.1) Eosinophils # (Auto) 0.1 x10^3/uL (0.0-0.7) Basophils # (Auto) 0.0 x10^3/uL (0.0-0.2) Prothrombin Time 12.7 SEC (11.7-14.0) Prothromb Time International Ratio 1.0 (0.8-1.1) Sodium Level 146 mmol/L (136-145) Potassium Level 3.8 mmol/L (3.5-5.1) Chloride Level 107 mmol/L (98-107) Carbon Dioxide Level 31 mmol/L (21-32) Anion Gap 8 (6-14) Blood Urea Nitrogen 19 mg/dL (8-26) Creatinine 0.8 mg/dL (0.7-1.3) Estimated GFR (Cockcroft-Gault) 94.0 BUN/Creatinine Ratio 24 (6-20) Glucose Level 77 mg/dL (70-99) Calcium Level 9.1 mg/dL (8.5-10.1) Magnesium Level 2.0 mg/dL (1.8-2.4) Total Bilirubin 0.3 mg/dL (0.2-1.0) Aspartate Amino Transf (AST/SGOT) 13 U/L (15-37) Alanine Aminotransferase (ALT/SGPT) 16 U/L (16-63) Alkaline Phosphatase 84 U/L (46-116) Creatine Kinase 62 U/L (39-308) Troponin I Quantitative < 0.017 ng/mL (0.000-0.055) IV-Xcf-F-Type Natriuretic Peptide 1880 pg/mL (0-449) Total Protein 6.8 g/dL (6.4-8.2) Albumin 3.2 g/dL (3.4-5.0) Albumin/Globulin Ratio 0.9 (1.0-1.7) Lipase 94 U/L (73-393) VTE Prophylaxis Ordered VTE Prophylaxis Devices: No VTE Pharmacological Prophylaxi: Yes Assessment/Plan Assessment/Plan chest pain, angina, r/o ACS weight loss, malnutritino, BMI 15, 35 lbs weight loss in past year, known prostate cancer, will check PSA afib, irreg, rate controlled htn, stable MAIN REID MD Feb 28, 2019 20:25
[2019-02-28] MEDS: ATORVASTATIN CALCIUM 40 MG TABLET. PO SCH (20:37)
[2019-02-28] MEDS: TAMSULOSIN 0.4 MG CAP.ER.24H. PO SCH (20:38)
[2019-02-28] MEDS: oxyCODONE/APAP 10/325 1 TAB TABLET PO PRN (20:38)
[2019-02-28] MEDS: TICAGRELOR 90 MG TABLET. PO SCH (20:38)
[2019-02-28] MEDS: ENOXAPARIN 40 MG/0.4 ML SYRINGE. SQ SCH (20:38)
[2019-02-28 22:45] VITALS: BP 111/62
[2019-03-01 03:00] VITALS: BP 109/60
[2019-03-01 04:27] LABS: BASO # 0.1 x10^3/uL (0.0-0.2); BASO % 2 % (0-3); EOS # 0.1 x10^3/uL (0.0-0.7); EOS % 3 % (0-3); HEMATOCRIT 36.4 % (39.0-53.0); HEMOGLOBIN 11.9 g/dL (13.0-17.5); LYMPH % 29 % (24-48); MEAN CORPUSCULAR HEMOGLOBIN 29 pg (25-35); MEAN CORPUSCULAR HGB CONC 33 g/dL (31-37); MEAN CORPUSCULAR VOLUME 90 fL (79-100); MONO # 0.4 x10^3/uL (0.0-1.1); MONO % 12 % (0-9); NEUT # 1.9 x10^3/uL (1.8-7.7); NEUT % 54 % (31-73); PLATELET COUNT 171 x10^3/uL (140-400); RED BLOOD COUNT 4.06 x10^6/uL (4.30-5.70); RED CELL DISTRIBUTION WIDTH 16.3 % (11.5-14.5); WHITE BLOOD COUNT 3.5 x10^3/uL (4.0-11.0)
[2019-03-01 04:58] LABS: ALBUMIN 2.5 g/dL (3.4-5.0); ALBUMIN/GLOBULIN RATIO 0.7 (1.0-1.7); CALCIUM 8.5 mg/dL (8.5-10.1); CREATININE 0.7 mg/dL (0.7-1.3); GFR 109.6; TOTAL BILIRUBIN 0.2 mg/dL (0.2-1.0); TOTAL PROTEIN 5.9 g/dL (6.4-8.2)
[2019-03-01 05:06] LABS: CHOLESTEROL/HDL RATIO 2.4
[2019-03-01] MEDS: oxyCODONE/APAP 10/325 1 TAB TABLET PO PRN ×3 (05:49→20:31)
[2019-03-01 07:00] VITALS: BP 119/55
[2019-03-01] MEDS: MAGNESIUM OXIDE 400 MG TABLET PO SCH (08:11)
[2019-03-01] MEDS: LISINOPRIL 5 MG TABLET. PO SCH (08:12)
[2019-03-01] MEDS: METOPROLOL SUCC 24HR ER 25 MG TAB.ER.24H. PO SCH (08:12)
[2019-03-01] MEDS: TICAGRELOR 90 MG TABLET. PO SCH ×2 (08:12→20:30)
[2019-03-01] MEDS: PSYLLIUM HUSK (SUGAR FREE) 1 PKT PACKET PO SCH (08:14)
[2019-03-01] MEDS: POLYETHYLENE GLYCOL 3350 17 GM PACKET. PO SCH (08:14)
[2019-03-01 11:00] VITALS: BP 95/57
--- NOTE | 2019-03-01 13:09 | PDOC ---
[employer] PROGRESS NOTE Chief Complaint Chief Complaint acute chest pain Hypertension Wound on L sacral area Hx of prostate cancer treated with radiation/chemotherapy History of Present Illness History of Present Illness 03/01/19 Pt seen and examined. Pt alert and awake and conversant, lying in bed. Reports "a little chest pain". Has been eating well. Discussed with nurse. Vitals/I&O Vitals/I&O: Vital Signs Date Time Temp Pulse Resp B/P (MAP) Pulse Ox O2 Delivery O2 Flow Rate FiO2 03/01/19 12:42 97 Room Air 03/01/19 11:00 98.0 81 18 95/57 (70) 98.0 I & O 02/28/19 02/28/19 03/01/19 15:00 23:00 07:00 Intake Total 300 ml 700 ml Balance 300 ml 700 ml Physical Exam General: Alert, Oriented X3, Cooperative, No acute distress, Other (cachectic) Heart: Regular rate, Normal S1, Normal S2 Lungs: Clear Abdomen: Normal bowel sounds, Soft Extremities: No clubbing, No edema, Normal pulses, Other (b/l excoriations on lower extremities) Skin: Other (excoriations on b/l LE) Labs Labs: Laboratory Tests Test 02/28/19 15:08 02/28/19 20:30 02/28/19 23:41 03/01/19 03:40 White Blood Count 4.8 x10^3/uL (4.0-11.0) 3.5 x10^3/uL (4.0-11.0) Red Blood Count 4.53 x10^6/uL (4.30-5.70) 4.06 x10^6/uL (4.30-5.70) Hemoglobin 13.4 g/dL (13.0-17.5) 11.9 g/dL (13.0-17.5) Hematocrit 40.6 % (39.0-53.0) 36.4 % (39.0-53.0) Mean Corpuscular Volume 90 fL (79-100) 90 fL (79-100) Mean Corpuscular Hemoglobin 30 pg (25-35) 29 pg (25-35) Mean Corpuscular Hemoglobin Concent 33 g/dL (31-37) 33 g/dL (31-37) Red Cell Distribution Width 16.3 % (11.5-14.5) 16.3 % (11.5-14.5) Platelet Count 206 x10^3/uL (140-400) 171 x10^3/uL (140-400) Neutrophils (%) (Auto) 78 % (31-73) 54 % (31-73) Lymphocytes (%) (Auto) 11 % (24-48) 29 % (24-48) Monocytes (%) (Auto) 9 % (0-9) 12 % (0-9) Eosinophils (%) (Auto) 1 % (0-3) 3 % (0-3) Basophils (%) (Auto) 1 % (0-3) 2 % (0-3) Neutrophils # (Auto) 3.7 x10^3/uL (1.8-7.7) 1.9 x10^3/uL (1.8-7.7) Lymphocytes # (Auto) 0.5 x10^3/uL (1.0-4.8) 1.0 x10^3/uL (1.0-4.8) Monocytes # (Auto) 0.4 x10^3/uL (0.0-1.1) 0.4 x10^3/uL (0.0-1.1) Eosinophils # (Auto) 0.1 x10^3/uL (0.0-0.7) 0.1 x10^3/uL (0.0-0.7) Basophils # (Auto) 0.0 x10^3/uL (0.0-0.2) 0.1 x10^3/uL (0.0-0.2) Prothrombin Time 12.7 SEC (11.7-14.0) Prothromb Time International Ratio 1.0 (0.8-1.1) Sodium Level 146 mmol/L (136-145) 145 mmol/L (136-145) Potassium Level 3.8 mmol/L (3.5-5.1) 4.0 mmol/L (3.5-5.1) Chloride Level 107 mmol/L (98-107) 110 mmol/L (98-107) Carbon Dioxide Level 31 mmol/L (21-32) 30 mmol/L (21-32) Anion Gap 8 (6-14) 5 (6-14) Blood Urea Nitrogen 19 mg/dL (8-26) 18 mg/dL (8-26) Creatinine 0.8 mg/dL (0.7-1.3) 0.7 mg/dL (0.7-1.3) Estimated GFR (Cockcroft-Gault) 94.0 109.6 BUN/Creatinine Ratio 24 (6-20) 26 (6-20) Glucose Level 77 mg/dL (70-99) 84 mg/dL (70-99) Calcium Level 9.1 mg/dL (8.5-10.1) 8.5 mg/dL (8.5-10.1) Magnesium Level 2.0 mg/dL (1.8-2.4) Total Bilirubin 0.3 mg/dL (0.2-1.0) 0.2 mg/dL (0.2-1.0) Aspartate Amino Transf (AST/SGOT) 13 U/L (15-37) 15 U/L (15-37) Alanine Aminotransferase (ALT/SGPT) 16 U/L (16-63) 12 U/L (16-63) Alkaline Phosphatase 84 U/L (46-116) 68 U/L (46-116) Creatine Kinase 62 U/L (39-308) Troponin I Quantitative < 0.017 ng/mL (0.000-0.055) < 0.017 ng/mL (0.000-0.055) < 0.017 ng/mL (0.000-0.055) VO-Oaf-Z-Type Natriuretic Peptide 1880 pg/mL (0-449) Total Protein 6.8 g/dL (6.4-8.2) 5.9 g/dL (6.4-8.2) Albumin 3.2 g/dL (3.4-5.0) 2.5 g/dL (3.4-5.0) Albumin/Globulin Ratio 0.9 (1.0-1.7) 0.7 (1.0-1.7) Lipase 94 U/L (73-393) Triglycerides Level 51 mg/dL (0-150) Cholesterol Level 146 mg/dL (0-200) LDL Cholesterol, Calculated 74 mg/dL (0-100) VLDL Cholesterol, Calculated 10 mg/dL (0-40) Non-HDL Cholesterol Calculated 84 mg/dL (0-129) HDL Cholesterol 62 mg/dL (40-60) Cholesterol/HDL Ratio 2.4 Prostate Specific Antigen 0.11 ng/mL (0.00-4.00) Review of Systems Review of Systems: No dysphagia No N/V Assessment and Plan Assessmemt and Plan Problems Medical Problems: (1) Acute chest pain Status: Acute (2) CHF (congestive heart failure) Status: Acute (3) Hypoalbuminemia Status: Acute (4) Living accommodation issues Status: Acute (5) Malnutrition Status: Acute A/P acute chest pain - troponins x3 negative wound on L sacral area weight loss, malnutrition 35 lbs weight loss in past year, Hx of prostate cancer treated with radiation/chemotherapy Afib, irreg, rate controlled Hypertension temporary homelessness, per nurse - SW consulted Cardiac monitoring serial EKGs, serial enzymes Wound care Consult oncology Home meds DVT ppx PT/OT Full code Comment Review of Relevant I have reviewed the following items jj (where applicable) has been applied. Medications: Current Medications Medications (Trade) Dose Ordered Sig/Serge Route PRN Reason Start Time Stop Time Status Last Admin Dose Admin Aspirin (Children'S Aspirin) 324 mg 1X ONCE PO 02/28/19 16:45 02/28/19 16:46 DC 02/28/19 16:51 Atorvastatin Calcium (Lipitor) 80 mg HS PO 02/28/19 21:00 02/28/19 20:37 Lisinopril (Prinivil) 5 mg DAILY PO 03/01/19 09:00 03/01/19 08:12 Magnesium Oxide (Magnesium Oxide) 400 mg DAILY PO 03/01/19 09:00 03/01/19 08:11 Metoprolol Succinate (Toprol Xl) 25 mg DAILY PO 03/01/19 09:00 03/01/19 08:12 Oxycodone/ Acetaminophen (Percocet 10/325) 1 tab PRN Q6HRS PRN PO PAIN 02/28/19 19:45 03/01/19 12:42 Polyethylene Glycol (miraLAX PACKET) 17 gm DAILY PO 03/01/19 09:00 03/01/19 08:14 Psyllium Hydrophilic Mucilloid (Metamucil Fiber Packet) 1 pkt DAILY PO 03/01/19 09:00 03/01/19 08:14 Tamsulosin HCl (Flomax) 0.4 mg HS PO 02/28/19 21:00 02/28/19 20:38 Ticagrelor (Brilinta) 90 mg BID PO 02/28/19 21:00 03/01/19 08:12 Enoxaparin Sodium (Lovenox 40mg Syringe) 40 mg Q24H SQ 02/28/19 21:00 02/28/19 20:38 MIKE BLAIR III DO Mar 01, 2019 13:09
--- NOTE | 2019-03-01 13:22 | NUR ---
SS following for discharge planning. SS reviewed pt's chart and discussed with pt's RN. Referral received for poor living conditions. SS met with pt to discuss home situation and discharge planning. Pt reported that he rents a house for $525/month plus utilities. Pt reported that the house is furnished by the landlord. Pt reported that the house is infested with bed bugs and mice which has been reported several times to the landlord and the landlord has not fixed the issue. Pt reported that due to the situation he has been sleeping in his car for three months. Pt reported that he has lost a significant amount of weight. Pt is currently on room air. PT/OT ordered for evaluation and recommendations. SS completed Adult Protective Service report for living conditions, intake# [id number]. SS will continue to follow for discharge planning. Pt's RN notified.
[2019-03-01 15:30] VITALS: BP 82/51
--- NOTE | 2019-03-01 16:28 | NUR ---
Wound Care Wound care consult for PU to coccyx. Pt has healing stage III with red blanchable jose-wound and hard scab. Applied Xeroform and foam, recommend to change every 2-3 days. WC will continue to follow for possible changes.
[2019-03-01 19:00] VITALS: BP 92/49
[2019-03-01] MEDS: TAMSULOSIN 0.4 MG CAP.ER.24H. PO SCH (20:30)
[2019-03-01] MEDS: ATORVASTATIN CALCIUM 40 MG TABLET. PO SCH (20:30)
[2019-03-01] MEDS: ENOXAPARIN 40 MG/0.4 ML SYRINGE. SQ SCH (20:31)
[2019-03-01 23:00] VITALS: BP 100/55
--- NOTE | 2019-03-02 00:43 | CONS ---
DATE OF CONSULTATION: 03/01/2019 MEDICAL ONCOLOGY CONSULTATION REQUESTING PHYSICIAN: Papo Rodriguez DO REASON FOR CONSULTATION: Prostate cancer. HISTORY OF PRESENT ILLNESS: The patient is a 78-year-old gentleman who was diagnosed with prostate cancer when he underwent a transrectal needle biopsy on 11/29/2017. PSA was 11.9 at the time of diagnosis and was staged as a TIc N0 M0, stage 2C, Chao score of 8 adenocarcinoma of the prostate. Workup was done as a result of rising PSA. In addition, he also had gross hematuria. He underwent a CT scan of the abdomen and pelvis on 10/11/2017 which revealed a simple right renal cyst. Simple right hepatic cyst also noted. He was evaluated by Dr. Keny Holland and he underwent definitive radiation therapy to a dose of 76 Gy completed on 04/04/2018. He was started on androgen-deprivation therapy by Dr. Glynn on 12/28/2017 and the patient reports that he received a total of 3 doses. He was admitted to [facility] on 02/28/2019 with chest pain. He also reports a wound in the sacral region and he was noted to have a decubitus ulcer. I discussed with the registered nurse. He has noted a 35 pound weight loss since the time of diagnosis of prostate cancer. He reports good appetite. I was asked to see the patient for evaluation of prostate cancer and weight loss. His PSA on 03/01/2019 was normal at 0.11. PAST MEDICAL HISTORY: Atrial fibrillation, coronary artery disease, hypertension, hyperlipidemia, prostate cancer, status post radiation therapy, COPD, constipation. He reports lung cancer and right upper lobe lobectomy. FAMILY HISTORY: Positive for heart disease. He also thinks there was cancer in his mother and father, but is not sure of the type. SOCIAL HISTORY: He smokes cigarettes, at least 2 cigarettes per day. He smokes since the age of 20. Maximum number of cigarettes he smoked is about 1 pack per week. REVIEW OF SYSTEMS: A 12-point review of system was performed. Pertinent positives are mentioned in the history of present illness. Rest of the system review is negative. PHYSICAL EXAMINATION: GENERAL APPEARANCE: The patient is a 78-year-old gentleman who is well developed and poorly nourished and in no acute cardiorespiratory distress. VITAL SIGNS: Blood pressure 95/57, temperature 98 degrees. HEENT: Atraumatic, normocephalic. EYES: No icterus. Pupils equal and reactive. NECK: Supple. CHEST: Bilaterally symmetrical. HEART: S1, S2 normal. ABDOMEN: Soft, nontender. CENTRAL NERVOUS SYSTEM: No focal deficits. LYMPHATICS: No lymphadenopathy. SKIN: He has a decubitus ulcer. MUSCULOSKELETAL: No joint effusions. PSYCHOLOGIC: Mood and affect are appropriate. LABORATORY DATA: WBC 4.8, hemoglobin 13.4, platelet count 206 on 02/28/2019, WBC dropped to 3.5 on 03/01/2019. Creatinine 0.7, total bilirubin 0.2, AST 15, ALT 12, alkaline phosphatase 68, total protein 5.9, albumin 2.5. PSA 0.11. IMPRESSION AND PLAN: 1. T1c N0 M0, stage 2C Chao score 8 adenocarcinoma of the prostate gland diagnosed on 11/29/2017. PSA was 11.9 at the time of diagnosis. He underwent definitive radiation therapy along with androgen-deprivation therapy. Androgen deprivation therapy was started on 12/28/2017. Radiation therapy was completed on 04/04/2018. The patient reports that he received 3 doses of androgen deprivation therapy and he was placed on observation. His PSA 0.11 on 03/01/2019 and hence I do not suspect recurrent prostate cancer. He has a followup appointment with Dr. Holland in 04/2019 for continued surveillance. He will follow up with Dr. Holland. 2. Weight loss. I will obtain CT chest, abdomen and pelvis to evaluate for malignancy. The patient also reports having had a lung cancer in the past. FREDY SHEETS MD DR: ASMITA/catherine JOB#: [id number] / [id number]
[2019-03-02 03:00] VITALS: BP 104/54
[2019-03-02 03:53] LABS: BASO % 1 % (0-3); EOS # 0.1 x10^3/uL (0.0-0.7); EOS % 3 % (0-3); HEMATOCRIT 34.9 % (39.0-53.0); HEMOGLOBIN 11.7 g/dL (13.0-17.5); LYMPH % 25 % (24-48); MEAN CORPUSCULAR HEMOGLOBIN 30 pg (25-35); MEAN CORPUSCULAR HGB CONC 34 g/dL (31-37); MEAN CORPUSCULAR VOLUME 89 fL (79-100); MONO # 0.4 x10^3/uL (0.0-1.1); MONO % 10 % (0-9); NEUT # 2.3 x10^3/uL (1.8-7.7); NEUT % 61 % (31-73); PLATELET COUNT 166 x10^3/uL (140-400); RED BLOOD COUNT 3.91 x10^6/uL (4.30-5.70); WHITE BLOOD COUNT 3.8 x10^3/uL (4.0-11.0)
[2019-03-02 04:12] LABS: ALBUMIN 2.4 g/dL (3.4-5.0); ALBUMIN/GLOBULIN RATIO 0.8 (1.0-1.7); CALCIUM 8.4 mg/dL (8.5-10.1); CREATININE 0.7 mg/dL (0.7-1.3); GFR 109.6; POTASSIUM 4.3 mmol/L (3.5-5.1); TOTAL BILIRUBIN 0.3 mg/dL (0.2-1.0); TOTAL PROTEIN 5.4 g/dL (6.4-8.2)
[2019-03-02 07:00] VITALS: BP 113/56
[2019-03-02] MEDS ORDERED: IOHEXOL 300 MG/ML 100ML VIAL. IV ONE (07:45)
[2019-03-02] MEDS ORDERED: IOHEXOL 240 MG/ML 50ML VIAL. PO ONE (07:45)
--- NOTE | 2019-03-02 09:19 | NUR ---
Patient left the floor at approx [address]
--- NOTE | 2019-03-02 09:30 | NUR ---
PATIENT RETURNED TO THE FLOOR AT APPROX 0930
[2019-03-02] MEDS: POLYETHYLENE GLYCOL 3350 17 GM PACKET. PO SCH (10:23)
[2019-03-02] MEDS: PSYLLIUM HUSK (SUGAR FREE) 1 PKT PACKET PO SCH (10:23)
[2019-03-02] MEDS: MAGNESIUM OXIDE 400 MG TABLET PO SCH (10:23)
[2019-03-02] MEDS: TICAGRELOR 90 MG TABLET. PO SCH ×2 (10:23→20:26)
[2019-03-02] MEDS: LISINOPRIL 5 MG TABLET. PO SCH (10:24)
[2019-03-02] MEDS: METOPROLOL SUCC 24HR ER 25 MG TAB.ER.24H. PO SCH (10:25)
[2019-03-02 11:00] VITALS: BP 108/47
--- NOTE | 2019-03-02 12:14 | PDOC ---
[employer] PROGRESS NOTE Chief Complaint Chief Complaint acute chest pain Hypertension Wound on L sacral area Hx of prostate cancer treated with radiation/chemotherapy History of Present Illness History of Present Illness 03/01/19 Pt seen and examined. Pt alert and awake and conversant, lying in bed. Reports "a little chest pain". Has been eating well. Discussed with nurse. 03/02: Patient was seen and examined on medical floor. Patient is awake and conversant, lying in bed, stating that he is irritated that the nurses have not checked on his sacral pressure sore today. TARA RN, who states that the wound care team did indeed come by and take care of his sacral wound. Patient underwent a CT scan of the chest/abdomen today in order to search for metastatic disease, results pending. Patient claims to be short of breath with or without exertion at times. Wound dressing on sacrum noted to be clean, dry and intact. Vitals/I&O Vitals/I&O: Vital Signs Date Time Temp Pulse Resp B/P (MAP) Pulse Ox O2 Delivery O2 Flow Rate FiO2 03/02/19 11:00 97.7 86 18 108/47 (67) 99 Room Air 97.7 I & O 03/01/19 03/01/19 03/02/19 15:00 23:00 07:00 Intake Total 200 ml 0 ml Balance 200 ml 0 ml Physical Exam General: Alert, Oriented X3, Cooperative, No acute distress, Other (cachectic) Heart: Regular rate, Normal S1, Normal S2 Lungs: Clear Abdomen: Normal bowel sounds, Soft Extremities: No clubbing, No edema, Normal pulses, Other (b/l excoriations on lower extremities) Skin: Other (excoriations on b/l LE) Labs Labs: Laboratory Tests Test 03/02/19 03:00 White Blood Count 3.8 x10^3/uL (4.0-11.0) Red Blood Count 3.91 x10^6/uL (4.30-5.70) Hemoglobin 11.7 g/dL (13.0-17.5) Hematocrit 34.9 % (39.0-53.0) Mean Corpuscular Volume 89 fL (79-100) Mean Corpuscular Hemoglobin 30 pg (25-35) Mean Corpuscular Hemoglobin Concent 34 g/dL (31-37) Red Cell Distribution Width 16.0 % (11.5-14.5) Platelet Count 166 x10^3/uL (140-400) Neutrophils (%) (Auto) 61 % (31-73) Lymphocytes (%) (Auto) 25 % (24-48) Monocytes (%) (Auto) 10 % (0-9) Eosinophils (%) (Auto) 3 % (0-3) Basophils (%) (Auto) 1 % (0-3) Neutrophils # (Auto) 2.3 x10^3/uL (1.8-7.7) Lymphocytes # (Auto) 1.0 x10^3/uL (1.0-4.8) Monocytes # (Auto) 0.4 x10^3/uL (0.0-1.1) Eosinophils # (Auto) 0.1 x10^3/uL (0.0-0.7) Basophils # (Auto) 0.0 x10^3/uL (0.0-0.2) Sodium Level 141 mmol/L (136-145) Potassium Level 4.3 mmol/L (3.5-5.1) Chloride Level 106 mmol/L (98-107) Carbon Dioxide Level 31 mmol/L (21-32) Anion Gap 4 (6-14) Blood Urea Nitrogen 23 mg/dL (8-26) Creatinine 0.7 mg/dL (0.7-1.3) Estimated GFR (Cockcroft-Gault) 109.6 BUN/Creatinine Ratio 33 (6-20) Glucose Level 94 mg/dL (70-99) Calcium Level 8.4 mg/dL (8.5-10.1) Total Bilirubin 0.3 mg/dL (0.2-1.0) Aspartate Amino Transf (AST/SGOT) 14 U/L (15-37) Alanine Aminotransferase (ALT/SGPT) 11 U/L (16-63) Alkaline Phosphatase 65 U/L (46-116) Total Protein 5.4 g/dL (6.4-8.2) Albumin 2.4 g/dL (3.4-5.0) Albumin/Globulin Ratio 0.8 (1.0-1.7) Review of Systems Review of Systems: Patient complains of SOB and complains of pain on the sacrum due to a pressure ulcer. Patient denies numbness and tingling. Assessment and Plan Assessmemt and Plan Problems Medical Problems: (1) Acute chest pain Status: Acute (2) CHF (congestive heart failure) Status: Acute (3) Hypoalbuminemia Status: Acute (4) Living accommodation issues Status: Acute (5) Malnutrition Status: Acute Assessment: Chest pain, Abnormal weight loss Plan: 1. Await results of CT scan of chest and abdomen 2. continue wound care 3. trend labs 4. DVT prophylaxis 5. resume home meds 6. Full code Comment Review of Relevant I have reviewed the following items jj (where applicable) has been applied. Medications: Current Medications Medications (Trade) Dose Ordered Sig/Serge Route PRN Reason Start Time Stop Time Status Last Admin Dose Admin Iohexol (Omnipaque 240 Mg/ml) 50 ml 1X ONCE PO 03/02/19 07:45 03/02/19 07:46 DC 03/02/19 08:45 Iohexol (Omnipaque 300 Mg/ml) 75 ml 1X ONCE IV 03/02/19 07:45 03/02/19 07:46 DC 03/02/19 08:45 MIKE BLAIR III DO Mar 02, 2019 12:14
--- NOTE | 2019-03-02 13:08 | RAD ---
CT study of the chest and abdomen and pelvis with contrast Clinical indications: Prostate cancer. Weight loss. History of lung cancer and lobectomy. TECHNIQUE: After IV infusion of 75 cc of Omnipaque 300, helical CT scanning of the chest and abdomen and pelvis was performed. GI contrast was administered per mouth. PQRS compliance Statement One or more of the following individualized dose reduction techniques were utilized for this study: 1. Automated exposure control 2. Adjustment of the mA and/or kV according to patient size 3. Use of iterative reconstruction technique COMPARISON: CT study of the abdomen and pelvis dated January 15, 2019. CT study of the chest dated November 22, 2018. CHEST CT: No enlarged thoracic lymphadenopathy is evident. No focal aneurysmal dilatation or dissection of the thoracic aorta is seen. The heart size is normal and no pericardial effusion is seen. Calcified atheromatous arterial disease of the coronary arteries is seen. No pleural effusion or pneumothorax is evident. There is a small noncalcified nodule lateral aspect left upper lobe seen on series 3 image 16. This is stable. Tiny subpleural nodules are seen within the lateral aspect left lower lobe seen on images 51 and 52 which are stable. There is a scar within the medial posterior aspect of the left lower lobe which is stable. On the right side, fiducial markers versus surgical clips are seen within the right suprahilar region. There is chronic right apical lung infiltrate and pleural thickening which is stable consistent with chronic scarring. There is chronic scarring within the medial posterior right lower lobe. Bilateral emphysema is seen. The previously seen adherent mucus within the distal right trachea has resolved. There is additional mild mucus within the distal trachea. The right upper lobe appears to be surgically absent. Proximal bronchial tree is otherwise patent and unchanged from the previous study. No lytic process is seen. IMPRESSION: The previously seen adherent mucus of the distal right lateral posterior trachea has resolved. Small adherent mucus is seen within the distal trachea. No new lung infiltrate or new lung nodule is evident. Calcified atheromatous disease of the coronary arteries. Normal heart size. ABDOMEN AND PELVIS CT: Right hepatic cyst is seen. No new liver lesions are evident. The spleen is not enlarged. Pancreas and gallbladder are normal. No extra hepatic biliary ductal dilatation is seen. No adrenal mass is seen. Right renal cysts are again evident. No hydronephrosis is seen on either side. No focal aneurysmal dilatation of the abdominal aorta is seen. No enlarged abdominal or pelvic lymphadenopathy is evident. Urinary bladder wall is smooth. The urinary bladder is not abnormally distended. The prostate gland is enlarged and measures 5.6 cm in transverse dimension. Brachytherapy clips are seen within the prostate gland. Sigmoid diverticulosis is seen without diverticulitis. No obstructive bowel pattern is evident. No free fluid or free air or mesenteric edema is seen. Surgical fusion hardware is again evident from T11 down through L2. Again seen is a compression fracture of L1 which is unchanged. L1 vertebral body is radiolucent and therefore this may be due to metastatic disease. This is unchanged. No new lytic process is seen. IMPRESSION: Stable enlargement of the prostate gland. No new abdominal or pelvic lymphadenopathy is evident. Hepatic cyst. No hepatic metastasis. No acute abnormality of the abdomen or pelvis. Stable pathologic compression fracture of L1. Electronically signed by: Seven Bui MD (03/02/2019 1:05 PM) [facility]
[2019-03-02] MEDS: oxyCODONE/APAP 10/325 1 TAB TABLET PO PRN ×2 (13:17→20:25)
[2019-03-02 15:00] VITALS: BP 84/43
--- NOTE | 2019-03-02 16:08 | NUR ---
SS following up with discharge planning. PT/OT evaluated and recommended home independent. SS will continue to follow for discharge planning.
--- NOTE | 2019-03-02 16:20 | PDOC ---
PROGRESS NOTES Subjective Subjective HPI -f/u of T1c N0 M0, stage 2C Chao score 8 adenocarcinoma of the prostate gland diagnosed on 11/29/2017. ROS - no CP Objective Objective Vital Signs Date Time Temp Pulse Resp B/P (MAP) Pulse Ox O2 Delivery O2 Flow Rate FiO2 03/02/19 15:00 97.8 61 18 84/43 (57) 92 Room Air 97.8 Intake and Output 03/02/19 07:00 Intake Total 200 ml Balance 200 ml Intake Oral 200 ml # Voids 2 Physical Exam Heart: Normal S1, Normal S2 General: Alert, Oriented X3 Lungs: Clear to auscultation Neuro: Normal speech Psych/Mental Status: Mental status NL Assessment Assessment Problems Medical Problems: (1) Acute chest pain Status: Acute (2) CHF (congestive heart failure) Status: Acute (3) Hypoalbuminemia Status: Acute (4) Living accommodation issues Status: Acute (5) Malnutrition Status: Acute IMPRESSION AND PLAN: 1. T1c N0 M0, stage 2C [place] score 8 adenocarcinoma of the prostate gland diagnosed on 11/29/2017. PSA was 11.9 at the time of diagnosis. He underwent definitive radiation therapy along with androgen-deprivation therapy. Androgen deprivation therapy was started on 12/28/2017. Radiation therapy was completed on 04/04/2018. The patient reports that he received 3 doses of androgen deprivation therapy and he was placed on observation. His PSA 0.11 on 03/01/2019 and hence I do not suspect recurrent prostate cancer. He has a followup appointment with Dr. Holland in 04/2019 for continued surveillance. No further w/u planned. He will follow up with Dr. Holland. Will s/o. 2. Weight loss. I obtained CT chest, abdomen and pelvis 03/02/19 and is negative malignancy. The patient also reports having had a lung cancer in the past. 3. CP - f/u per cardiology. Comment Review of Relevant I have reviewed the following items jj (where applicable) has been applied. Labs Laboratory Tests Test 02/28/19 20:30 02/28/19 23:41 03/01/19 03:40 03/02/19 03:00 Troponin I Quantitative < 0.017 ng/mL (0.000-0.055) < 0.017 ng/mL (0.000-0.055) White Blood Count 3.5 x10^3/uL (4.0-11.0) 3.8 x10^3/uL (4.0-11.0) Red Blood Count 4.06 x10^6/uL (4.30-5.70) 3.91 x10^6/uL (4.30-5.70) Hemoglobin 11.9 g/dL (13.0-17.5) 11.7 g/dL (13.0-17.5) Hematocrit 36.4 % (39.0-53.0) 34.9 % (39.0-53.0) Mean Corpuscular Volume 90 fL (79-100) 89 fL (79-100) Mean Corpuscular Hemoglobin 29 pg (25-35) 30 pg (25-35) Mean Corpuscular Hemoglobin Concent 33 g/dL (31-37) 34 g/dL (31-37) Red Cell Distribution Width 16.3 % (11.5-14.5) 16.0 % (11.5-14.5) Platelet Count 171 x10^3/uL (140-400) 166 x10^3/uL (140-400) Neutrophils (%) (Auto) 54 % (31-73) 61 % (31-73) Lymphocytes (%) (Auto) 29 % (24-48) 25 % (24-48) Monocytes (%) (Auto) 12 % (0-9) 10 % (0-9) Eosinophils (%) (Auto) 3 % (0-3) 3 % (0-3) Basophils (%) (Auto) 2 % (0-3) 1 % (0-3) Neutrophils # (Auto) 1.9 x10^3/uL (1.8-7.7) 2.3 x10^3/uL (1.8-7.7) Lymphocytes # (Auto) 1.0 x10^3/uL (1.0-4.8) 1.0 x10^3/uL (1.0-4.8) Monocytes # (Auto) 0.4 x10^3/uL (0.0-1.1) 0.4 x10^3/uL (0.0-1.1) Eosinophils # (Auto) 0.1 x10^3/uL (0.0-0.7) 0.1 x10^3/uL (0.0-0.7) Basophils # (Auto) 0.1 x10^3/uL (0.0-0.2) 0.0 x10^3/uL (0.0-0.2) Sodium Level 145 mmol/L (136-145) 141 mmol/L (136-145) Potassium Level 4.0 mmol/L (3.5-5.1) 4.3 mmol/L (3.5-5.1) Chloride Level 110 mmol/L (98-107) 106 mmol/L (98-107) Carbon Dioxide Level 30 mmol/L (21-32) 31 mmol/L (21-32) Anion Gap 5 (6-14) 4 (6-14) Blood Urea Nitrogen 18 mg/dL (8-26) 23 mg/dL (8-26) Creatinine 0.7 mg/dL (0.7-1.3) 0.7 mg/dL (0.7-1.3) Estimated GFR (Cockcroft-Gault) 109.6 109.6 BUN/Creatinine Ratio 26 (6-20) 33 (6-20) Glucose Level 84 mg/dL (70-99) 94 mg/dL (70-99) Calcium Level 8.5 mg/dL (8.5-10.1) 8.4 mg/dL (8.5-10.1) Total Bilirubin 0.2 mg/dL (0.2-1.0) 0.3 mg/dL (0.2-1.0) Aspartate Amino Transf (AST/SGOT) 15 U/L (15-37) 14 U/L (15-37) Alanine Aminotransferase (ALT/SGPT) 12 U/L (16-63) 11 U/L (16-63) Alkaline Phosphatase 68 U/L (46-116) 65 U/L (46-116) Total Protein 5.9 g/dL (6.4-8.2) 5.4 g/dL (6.4-8.2) Albumin 2.5 g/dL (3.4-5.0) 2.4 g/dL (3.4-5.0) Albumin/Globulin Ratio 0.7 (1.0-1.7) 0.8 (1.0-1.7) Triglycerides Level 51 mg/dL (0-150) Cholesterol Level 146 mg/dL (0-200) LDL Cholesterol, Calculated 74 mg/dL (0-100) VLDL Cholesterol, Calculated 10 mg/dL (0-40) Non-HDL Cholesterol Calculated 84 mg/dL (0-129) HDL Cholesterol 62 mg/dL (40-60) Cholesterol/HDL Ratio 2.4 Prostate Specific Antigen 0.11 ng/mL (0.00-4.00) Laboratory Tests Test 03/02/19 03:00 White Blood Count 3.8 x10^3/uL (4.0-11.0) Red Blood Count 3.91 x10^6/uL (4.30-5.70) Hemoglobin 11.7 g/dL (13.0-17.5) Hematocrit 34.9 % (39.0-53.0) Mean Corpuscular Volume 89 fL (79-100) Mean Corpuscular Hemoglobin 30 pg (25-35) Mean Corpuscular Hemoglobin Concent 34 g/dL (31-37) Red Cell Distribution Width 16.0 % (11.5-14.5) Platelet Count 166 x10^3/uL (140-400) Neutrophils (%) (Auto) 61 % (31-73) Lymphocytes (%) (Auto) 25 % (24-48) Monocytes (%) (Auto) 10 % (0-9) Eosinophils (%) (Auto) 3 % (0-3) Basophils (%) (Auto) 1 % (0-3) Neutrophils # (Auto) 2.3 x10^3/uL (1.8-7.7) Lymphocytes # (Auto) 1.0 x10^3/uL (1.0-4.8) Monocytes # (Auto) 0.4 x10^3/uL (0.0-1.1) Eosinophils # (Auto) 0.1 x10^3/uL (0.0-0.7) Basophils # (Auto) 0.0 x10^3/uL (0.0-0.2) Sodium Level 141 mmol/L (136-145) Potassium Level 4.3 mmol/L (3.5-5.1) Chloride Level 106 mmol/L (98-107) Carbon Dioxide Level 31 mmol/L (21-32) Anion Gap 4 (6-14) Blood Urea Nitrogen 23 mg/dL (8-26) Creatinine 0.7 mg/dL (0.7-1.3) Estimated GFR (Cockcroft-Gault) 109.6 BUN/Creatinine Ratio 33 (6-20) Glucose Level 94 mg/dL (70-99) Calcium Level 8.4 mg/dL (8.5-10.1) Total Bilirubin 0.3 mg/dL (0.2-1.0) Aspartate Amino Transf (AST/SGOT) 14 U/L (15-37) Alanine Aminotransferase (ALT/SGPT) 11 U/L (16-63) Alkaline Phosphatase 65 U/L (46-116) Total Protein 5.4 g/dL (6.4-8.2) Albumin 2.4 g/dL (3.4-5.0) Albumin/Globulin Ratio 0.8 (1.0-1.7) Medications Current Medications Aspirin (Children'S Aspirin) 324 mg 1X ONCE PO Last administered on 02/28/19 16:51; Start 02/28/19 at 16:45; Stop 02/28/19 at 16:46; Status DC Acetaminophen (Tylenol) 500 mg PRN Q6HRS PRN PO HEADACHE / TEMP; Start 02/28/19 at 19:45 Atorvastatin Calcium (Lipitor) 80 mg HS PO Last administered on 03/01/19at 20:30; Start 02/28/19 at 21:00 Lisinopril (Prinivil) 5 mg DAILY PO Last administered on 03/02/19at 10:24; Start 03/01/19 at 09:00 Magnesium Oxide (Magnesium Oxide) 400 mg DAILY PO Last administered on 1 05/02/18at 10:23; Start 03/01/19 at 09:00 Metoprolol Succinate (Toprol Xl) 25 mg DAILY PO Last administered on 03/02/19at 10:25; Start 03/01/19 at 09:00 Nitroglycerin (Nitrostat) 0.4 mg PRN Q5MIN PRN SL CHEST PAIN; Start 02/28/19 at 19:45 Oxycodone/ Acetaminophen (Percocet 10/325) 1 tab PRN Q6HRS PRN PO PAIN Last administered on 03/02/19at 13:17; Start 02/28/19 at 19:45 Polyethylene Glycol (miraLAX PACKET) 17 gm DAILY PO Last administered on 03/02/19 10:23; Start 03/01/19 at 09:00 Psyllium Hydrophilic Mucilloid (Metamucil Fiber Packet) 1 pkt DAILY PO Last administered on 03/02/19 10:23; Start 03/01/19 at 09:00 Tamsulosin HCl (Flomax) 0.4 mg HS PO Last administered on 03/01/19 20:30; Start 02/28/19 at 21:00 Ticagrelor (Brilinta) 90 mg BID PO Last administered on 03/02/19 10:23; Start 02/28/19 at 21:00 Enoxaparin Sodium (Lovenox Per Pharmacy Prophylaxis Dosing) 1 each PRN DAILY PRN MC SEE COMMENTS; Start 02/28/19 at 20:30 Enoxaparin Sodium (Lovenox 40mg Syringe) 40 mg Q24H SQ Last administered on 03/01/19 20:31; Start 02/28/19 at 21:00 Iohexol (Omnipaque 240 Mg/ml) 50 ml 1X ONCE PO Last administered on 03/02/19at 08:45; Start 03/02/19 at 07:45; Stop 03/02/19 at 07:46; Status DC Iohexol (Omnipaque 300 Mg/ml) 75 ml 1X ONCE IV Last administered on 03/02/19 08:45; Start 03/02/19 at 07:45; Stop 03/02/19 at 07:46; Status DC Active Scripts Active Dicyclomine Hcl 20 Mg Tablet 1 Tab PO QID PRN Metamucil Fiber Singles Packet (Psyllium Husk/Aspartame) 3.4 Gm Powd.pack 1 Pkt PO DAILY 14 Days Acetaminophen 500 Mg Tablet 500 Mg PO PRN Q6HRS PRN 14 Days Magnesium Citrate 296 Ml Solution 296 Ml PO ONCE Miralax (Polyethylene Glycol 3350) 17 Gm Powd.pack 1 Packet PO DAILY Brilinta (Ticagrelor) 90 Mg Tablet 90 Mg PO BID 30 Days Mag-Oxide (Magnesium Oxide) 400 Mg Tablet 400 Mg PO DAILY 30 Days Metoprolol Succinate ( Xl ) (Metoprolol Succinate) 25 Mg Tab.er.24h 25 Mg PO DAILY 30 Days Lactulose 20 Gm/30 Ml Solution 10 Gm PO DAILY PRN Reported Lisinopril 5 Mg Tablet 1 Tab PO DAILY Oxycodone-Acetaminophen 10-325 (Oxycodone Hcl/Acetaminophen) 1 Each Tablet 10- 325 Mg PO PRN Q6HRS PRN Flomax (Tamsulosin Hcl) 0.4 Mg Cap.er.24h 0.4 Mg PO HS Atorvastatin Calcium 40 Mg Tablet 80 Mg PO HS Nitrostat (Nitroglycerin) 0.4 Mg Tab.subl 0.4 Mg SL PRN Q5MIN Vitals/I & O Vital Sign - Last 24 Hours 03/01/19 03/01/19 03/01/19 03/01/19 19:00 20:00 20:31 21:31 Temp 97.8 97.8 Pulse 57 Resp 18 B/P (MAP) 92/49 (63) Pulse Ox 100 100 O2 Delivery Room Air Room Air Room Air 03/01/19 03/02/19 03/02/19 03/02/19 23:00 03:00 07:00 08:00 Temp 97.8 97.5 97.9 97.8 97.5 97.9 Pulse 62 62 63 Resp 16 16 18 B/P (MAP) 100/55 (70) 104/54 (71) 113/56 (75) Pulse Ox 98 97 96 O2 Delivery Room Air Room Air 03/02/19 03/02/19 03/02/19 03/02/19 10:24 10:25 11:00 13:17 Temp 97.7 97.7 Pulse 63 63 86 Resp 18 18 B/P (MAP) 116/56 116/56 108/47 (67) Pulse Ox 99 99 O2 Delivery Room Air Room Air 03/02/19 15:00 Temp 97.8 97.8 Pulse 61 Resp 18 B/P (MAP) 84/43 (57) Pulse Ox 92 O2 Delivery Room Air Intake and Output 03/01/19 03/01/19 03/02/19 15:00 23:00 07:00 Intake Total 200 ml 0 ml Balance 200 ml 0 ml Nutrition Consultation Dietary Evaluation: Recommendations by RD: Increase Calorie Intake, Protein supplementation Comments: REC cardiac diet w/dbl portions REC Ensure w/breakfast (chocolate) Expected Outcomes/Goals: PO intake to meet >75% est needs Interpretation of weight loss: >20% in 1 year Malnutrition Findings: Food and Nutrition Intake (Mod: <75% est energy req 7days Weight Status: Underweight FREDY SHEETS MD Mar 02, 2019 16:20
[2019-03-02 19:58] VITALS: BP 90/44
[2019-03-02] MEDS: ATORVASTATIN CALCIUM 40 MG TABLET. PO SCH (20:25)
[2019-03-02] MEDS: ENOXAPARIN 40 MG/0.4 ML SYRINGE. SQ SCH ×2 (20:25→21:00)
[2019-03-02] MEDS: TAMSULOSIN 0.4 MG CAP.ER.24H. PO SCH (20:25)
[2019-03-02 23:05] VITALS: BP 97/44
[2019-03-03 03:45] VITALS: BP 103/43
[2019-03-03 04:32] LABS: BASO % 1 % (0-3); EOS # 0.1 x10^3/uL (0.0-0.7); EOS % 2 % (0-3); HEMATOCRIT 34.2 % (39.0-53.0); HEMOGLOBIN 11.5 g/dL (13.0-17.5); LYMPH # 0.9 x10^3/uL (1.0-4.8); LYMPH % 22 % (24-48); MEAN CORPUSCULAR HEMOGLOBIN 30 pg (25-35); MEAN CORPUSCULAR HGB CONC 34 g/dL (31-37); MEAN CORPUSCULAR VOLUME 89 fL (79-100); MONO # 0.4 x10^3/uL (0.0-1.1); MONO % 10 % (0-9); NEUT # 2.6 x10^3/uL (1.8-7.7); NEUT % 65 % (31-73); PLATELET COUNT 154 x10^3/uL (140-400); RED BLOOD COUNT 3.84 x10^6/uL (4.30-5.70); RED CELL DISTRIBUTION WIDTH 16.2 % (11.5-14.5)
[2019-03-03 04:52] LABS: ALBUMIN 2.4 g/dL (3.4-5.0); ALBUMIN/GLOBULIN RATIO 0.8 (1.0-1.7); CALCIUM 8.6 mg/dL (8.5-10.1); CREATININE 0.7 mg/dL (0.7-1.3); GFR 109.6; POTASSIUM 4.2 mmol/L (3.5-5.1); TOTAL BILIRUBIN 0.2 mg/dL (0.2-1.0); TOTAL PROTEIN 5.4 g/dL (6.4-8.2)
[2019-03-03 07:00] VITALS: BP 108/52
[2019-03-03] MEDS: POLYETHYLENE GLYCOL 3350 17 GM PACKET. PO SCH (08:27)
[2019-03-03] MEDS: PSYLLIUM HUSK (SUGAR FREE) 1 PKT PACKET PO SCH (08:27)
[2019-03-03] MEDS: MAGNESIUM OXIDE 400 MG TABLET PO SCH (08:27)
[2019-03-03] MEDS: TICAGRELOR 90 MG TABLET. PO SCH ×2 (08:28→20:21)
[2019-03-03] MEDS: METOPROLOL SUCC 24HR ER 25 MG TAB.ER.24H. PO SCH (08:28)
[2019-03-03] MEDS: LISINOPRIL 5 MG TABLET. PO SCH (08:28)
[2019-03-03 11:00] VITALS: BP 85/49
--- NOTE | 2019-03-03 12:33 | PDOC ---
[employer] PROGRESS NOTE Chief Complaint Chief Complaint acute chest pain Hypertension Wound on L sacral area Hx of prostate cancer treated with radiation/chemotherapy History of Present Illness History of Present Illness 03/03/19 Pt seen and examined. Pt lying in bed, conversant and in no acute distress. Reports some left sided abdominal pain today. Discussed with nurse. 03/02: Patient was seen and examined on medical floor. Patient is awake and conversant, lying in bed, stating that he is irritated that the nurses have not checked on his sacral pressure sore today. DW RN, who states that the wound care team did indeed come by and take care of his sacral wound. Patient underwent a CT scan of the chest/abdomen today in order to search for metastatic disease, results pending. Patient claims to be short of breath with or without exertion at times. Wound dressing on sacrum noted to be clean, dry and intact. 03/01/19 Pt seen and examined. Pt alert and awake and conversant, lying in bed. Reports "a little chest pain". Has been eating well. Discussed with nurse. Vitals/I&O Vitals/I&O: Vital Signs Date Time Temp Pulse Resp B/P (MAP) Pulse Ox O2 Delivery O2 Flow Rate FiO2 03/03/19 11:00 97.8 78 21 85/49 (61) 99 Room Air 97.8 I & O 03/02/19 03/02/19 03/03/19 14:59 22:59 06:59 Intake Total 360 ml 60 ml 200 ml Output Total 1 ml Balance 360 ml 59 ml 200 ml Physical Exam General: Alert, Oriented X3, No acute distress, Other (cachectic) Heart: Normal S1, Normal S2 Lungs: Clear Abdomen: Soft, Other (TTP on LUQ) Extremities: No clubbing, No edema, Normal pulses, Other (b/l excoriations on lower extremities) Skin: Other (excoriations on b/l LE) Labs Labs: Laboratory Tests Test 03/03/19 04:05 White Blood Count 4.0 x10^3/uL (4.0-11.0) Red Blood Count 3.84 x10^6/uL (4.30-5.70) Hemoglobin 11.5 g/dL (13.0-17.5) Hematocrit 34.2 % (39.0-53.0) Mean Corpuscular Volume 89 fL (79-100) Mean Corpuscular Hemoglobin 30 pg (25-35) Mean Corpuscular Hemoglobin Concent 34 g/dL (31-37) Red Cell Distribution Width 16.2 % (11.5-14.5) Platelet Count 154 x10^3/uL (140-400) Neutrophils (%) (Auto) 65 % (31-73) Lymphocytes (%) (Auto) 22 % (24-48) Monocytes (%) (Auto) 10 % (0-9) Eosinophils (%) (Auto) 2 % (0-3) Basophils (%) (Auto) 1 % (0-3) Neutrophils # (Auto) 2.6 x10^3/uL (1.8-7.7) Lymphocytes # (Auto) 0.9 x10^3/uL (1.0-4.8) Monocytes # (Auto) 0.4 x10^3/uL (0.0-1.1) Eosinophils # (Auto) 0.1 x10^3/uL (0.0-0.7) Basophils # (Auto) 0.0 x10^3/uL (0.0-0.2) Sodium Level 142 mmol/L (136-145) Potassium Level 4.2 mmol/L (3.5-5.1) Chloride Level 108 mmol/L (98-107) Carbon Dioxide Level 30 mmol/L (21-32) Anion Gap 4 (6-14) Blood Urea Nitrogen 26 mg/dL (8-26) Creatinine 0.7 mg/dL (0.7-1.3) Estimated GFR (Cockcroft-Gault) 109.6 BUN/Creatinine Ratio 37 (6-20) Glucose Level 89 mg/dL (70-99) Calcium Level 8.6 mg/dL (8.5-10.1) Total Bilirubin 0.2 mg/dL (0.2-1.0) Aspartate Amino Transf (AST/SGOT) 14 U/L (15-37) Alanine Aminotransferase (ALT/SGPT) 10 U/L (16-63) Alkaline Phosphatase 65 U/L (46-116) Total Protein 5.4 g/dL (6.4-8.2) Albumin 2.4 g/dL (3.4-5.0) Albumin/Globulin Ratio 0.8 (1.0-1.7) Review of Systems Review of Systems: LUQ abd pain Weight loss No N/V Assessment and Plan Assessmemt and Plan Problems Medical Problems: (1) Acute chest pain Status: Acute (2) CHF (congestive heart failure) Status: Acute (3) Hypoalbuminemia Status: Acute (4) Living accommodation issues Status: Acute (5) Malnutrition Status: Acute A/P acute chest pain - troponins x3 negative wound on L sacral area weight loss, malnutrition 35 lbs weight loss in past year, Hx of prostate cancer treated with ra diation/chemotherapy Afib, irreg, rate controlled Hypertension temporary homelessness, per nurse - SW consulted Cardiac monitoring serial EKGs, serial enzymes Wound care Hem-Onc consulted due to hx of prostate cancer; imaging: CT chest/abd/pelvis showed no evidence of malignancy Home meds DVT ppx PT/OT Full code Comment Review of Relevant I have reviewed the following items jj (where applicable) has been applied. MIKE BLAIR III, DO Mar 03, 2019 12:33
[2019-03-03 15:00] VITALS: BP 82/46
[2019-03-03] MEDS ORDERED: IV NORMAL SALINE 500ML BAG 500 ML IV ONE (15:45)
[2019-03-03] MEDS: IV NORMAL SALINE 1000ML BAG 1,000 ML IV SCH (15:53)
[2019-03-03 18:55] VITALS: BP 91/54
--- NOTE | 2019-03-03 19:41 | NUR ---
Pt refusing IV fluids stating it is causing him abdominal pain. Explained the importance of the IV fluids. Pt still refused. Will continue to monitor.
[2019-03-03] MEDS: oxyCODONE/APAP 10/325 1 TAB TABLET PO PRN (20:22)
[2019-03-03] MEDS: ENOXAPARIN 40 MG/0.4 ML SYRINGE. SQ SCH (20:47)
[2019-03-03] MEDS: ATORVASTATIN CALCIUM 40 MG TABLET. PO SCH (20:47)
[2019-03-03] MEDS: TAMSULOSIN 0.4 MG CAP.ER.24H. PO SCH (20:47)
[2019-03-03 23:01] VITALS: BP 110/56
[2019-03-04] VITALS (7 sets, daily range): BP systolic 98–126; BP diastolic 50–82
[2019-03-04 04:09] LABS: BASO % 1 % (0-3); EOS # 0.1 x10^3/uL (0.0-0.7); EOS % 2 % (0-3); HEMATOCRIT 35.5 % (39.0-53.0); HEMOGLOBIN 11.6 g/dL (13.0-17.5); LYMPH # 0.9 x10^3/uL (1.0-4.8); LYMPH % 22 % (24-48); MEAN CORPUSCULAR HEMOGLOBIN 30 pg (25-35); MEAN CORPUSCULAR HGB CONC 33 g/dL (31-37); MEAN CORPUSCULAR VOLUME 90 fL (79-100); MONO # 0.4 x10^3/uL (0.0-1.1); MONO % 9 % (0-9); NEUT # 2.7 x10^3/uL (1.8-7.7); NEUT % 66 % (31-73); PLATELET COUNT 163 x10^3/uL (140-400); RED BLOOD COUNT 3.95 x10^6/uL (4.30-5.70); RED CELL DISTRIBUTION WIDTH 15.8 % (11.5-14.5); WHITE BLOOD COUNT 4.1 x10^3/uL (4.0-11.0)
[2019-03-04 04:30] LABS: ALBUMIN 2.5 g/dL (3.4-5.0); ALBUMIN/GLOBULIN RATIO 0.8 (1.0-1.7); CALCIUM 8.4 mg/dL (8.5-10.1); CREATININE 0.6 mg/dL (0.7-1.3); POTASSIUM 4.1 mmol/L (3.5-5.1); TOTAL BILIRUBIN 0.3 mg/dL (0.2-1.0); TOTAL PROTEIN 5.5 g/dL (6.4-8.2)
[2019-03-04] MEDS: IV NORMAL SALINE 1000ML BAG 1,000 ML IV SCH ×2 (05:05→15:34)
[2019-03-04] MEDS: PSYLLIUM HUSK (SUGAR FREE) 1 PKT PACKET PO SCH (07:45)
[2019-03-04] MEDS: POLYETHYLENE GLYCOL 3350 17 GM PACKET. PO SCH (07:46)
[2019-03-04] MEDS: TICAGRELOR 90 MG TABLET. PO SCH ×2 (08:58→20:28)
[2019-03-04] MEDS: MAGNESIUM OXIDE 400 MG TABLET PO SCH (08:58)
--- NOTE | 2019-03-04 13:50 | PDOC ---
[employer] PROGRESS NOTE Chief Complaint Chief Complaint acute chest pain Hypertension Wound on L sacral area Hx of prostate cancer treated with radiation/chemotherapy History of Present Illness History of Present Illness 03/04/19 Pt was seen and examined. Pt in no acute distress, lying in bed. Per nurse, pt refused IV fluids yesterday. 03/03/19 Pt seen and examined. Pt lying in bed, conversant and in no acute distress. Reports some left sided abdominal pain today. Discussed with nurse. 03/02: Patient was seen and examined on medical floor. Patient is awake and conversant, lying in bed, stating that he is irritated that the nurses have not checked on his sacral pressure sore today. DW RN, who states that the wound care team did indeed come by and take care of his sacral wound. Patient underwent a CT scan of the chest/abdomen today in order to search for metastatic disease, results pending. Patient claims to be short of breath with or without exertion at times. Wound dressing on sacrum noted to be clean, dry and intact. 03/01/19 Pt seen and examined. Pt alert and awake and conversant, lying in bed. Reports "a little chest pain". Has been eating well. Discussed with nurse. Vitals/I&O Vitals/I&O: Vital Signs Date Time Temp Pulse Resp B/P (MAP) Pulse Ox O2 Delivery O2 Flow Rate FiO2 03/04/19 11:00 98.2 63 20 98/50 (66) 98 Room Air 98.2 I & O 03/03/19 03/03/19 03/04/19 15:00 23:00 07:00 Intake Total 500 ml Output Total 150 ml Balance -150 ml 500 ml Physical Exam General: Alert, Oriented X3, No acute distress, Other (cachectic) Heart: Normal S1, Normal S2 Lungs: Clear Abdomen: Normal bowel sounds, Soft Extremities: No clubbing, No edema, Normal pulses, Other (b/l excoriations on lower extremities) Skin: No significant lesion, Other (excoriations on b/l LE) Labs Labs: Laboratory Tests Test 03/04/19 04:00 White Blood Count 4.1 x10^3/uL (4.0-11.0) Red Blood Count 3.95 x10^6/uL (4.30-5.70) Hemoglobin 11.6 g/dL (13.0-17.5) Hematocrit 35.5 % (39.0-53.0) Mean Corpuscular Volume 90 fL (79-100) Mean Corpuscular Hemoglobin 30 pg (25-35) Mean Corpuscular Hemoglobin Concent 33 g/dL (31-37) Red Cell Distribution Width 15.8 % (11.5-14.5) Platelet Count 163 x10^3/uL (140-400) Neutrophils (%) (Auto) 66 % (31-73) Lymphocytes (%) (Auto) 22 % (24-48) Monocytes (%) (Auto) 9 % (0-9) Eosinophils (%) (Auto) 2 % (0-3) Basophils (%) (Auto) 1 % (0-3) Neutrophils # (Auto) 2.7 x10^3/uL (1.8-7.7) Lymphocytes # (Auto) 0.9 x10^3/uL (1.0-4.8) Monocytes # (Auto) 0.4 x10^3/uL (0.0-1.1) Eosinophils # (Auto) 0.1 x10^3/uL (0.0-0.7) Basophils # (Auto) 0.0 x10^3/uL (0.0-0.2) Sodium Level 142 mmol/L (136-145) Potassium Level 4.1 mmol/L (3.5-5.1) Chloride Level 107 mmol/L (98-107) Carbon Dioxide Level 28 mmol/L (21-32) Anion Gap 7 (6-14) Blood Urea Nitrogen 23 mg/dL (8-26) Creatinine 0.6 mg/dL (0.7-1.3) Estimated GFR (Cockcroft-Gault) 131.0 BUN/Creatinine Ratio 38 (6-20) Glucose Level 95 mg/dL (70-99) Calcium Level 8.4 mg/dL (8.5-10.1) Total Bilirubin 0.3 mg/dL (0.2-1.0) Aspartate Amino Transf (AST/SGOT) 18 U/L (15-37) Alanine Aminotransferase (ALT/SGPT) 14 U/L (16-63) Alkaline Phosphatase 66 U/L (46-116) Total Protein 5.5 g/dL (6.4-8.2) Albumin 2.5 g/dL (3.4-5.0) Albumin/Globulin Ratio 0.8 (1.0-1.7) Review of Systems Review of Systems: Yes diarrhea No headache Assessment and Plan Assessmemt and Plan Problems Medical Problems: (1) Acute chest pain Status: Acute (2) CHF (congestive heart failure) Status: Acute (3) Hypoalbuminemia Status: Acute (4) Living accommodation issues Status: Acute (5) Malnutrition Status: Acute A/P acute chest pain - troponins x3 negative wound on L sacral area weight loss, malnutrition 35 lbs weight loss in past year, Hx of prostate cancer treated with radiat ion/chemotherapy Afib, irreg, rate controlled Hypertension temporary homelessness, per nurse - SW consulted SW consulted due to temporary homelessness Cardiac monitoring Wound [facility] meds Hold today, and then lower dose, of metoprolol and lisinopril due to hypotension Pt refused IV fluids DVT ppx PT/OT Full code Comment Review of Relevant I have reviewed the following items jj (where applicable) has been applied. Medications: Current Medications Medications (Trade) Dose Ordered Sig/Serge Route PRN Reason Start Time Stop Time Status Last Admin Dose Admin Sodium Chloride 1,000 ml @ 75 mls/hr [id number] IV 03/03/19 15:45 03/03/19 15:53 Sodium Chloride 500 ml @ 500 mls/hr 1X ONCE IV 03/03/19 15:45 03/03/19 16:44 DC 03/03/19 15:45 MIKE BLAIR III DO Mar 04, 2019 13:49
[2019-03-04] MEDS: oxyCODONE/APAP 10/325 1 TAB TABLET PO PRN ×2 (15:31→20:28)
[2019-03-04] MEDS: TAMSULOSIN 0.4 MG CAP.ER.24H. PO SCH (20:29)
[2019-03-04] MEDS: ENOXAPARIN 40 MG/0.4 ML SYRINGE. SQ SCH (20:29)
[2019-03-04] MEDS: ATORVASTATIN CALCIUM 40 MG TABLET. PO SCH (20:29)
[2019-03-05 07:00] VITALS: BP 142/63
[2019-03-05] MEDS: IV NORMAL SALINE 1000ML BAG 1,000 ML IV SCH (07:45)
[2019-03-05 07:49] LABS: BASO % 1 % (0-3); EOS # 0.1 x10^3/uL (0.0-0.7); EOS % 2 % (0-3); HEMOGLOBIN 12.3 g/dL (13.0-17.5); LYMPH # 0.7 x10^3/uL (1.0-4.8); LYMPH % 19 % (24-48); MEAN CORPUSCULAR HEMOGLOBIN 29 pg (25-35); MEAN CORPUSCULAR HGB CONC 33 g/dL (31-37); MEAN CORPUSCULAR VOLUME 89 fL (79-100); MONO # 0.3 x10^3/uL (0.0-1.1); MONO % 9 % (0-9); NEUT # 2.6 x10^3/uL (1.8-7.7); NEUT % 69 % (31-73); PLATELET COUNT 162 x10^3/uL (140-400); RED BLOOD COUNT 4.17 x10^6/uL (4.30-5.70); RED CELL DISTRIBUTION WIDTH 16.2 % (11.5-14.5); WHITE BLOOD COUNT 3.8 x10^3/uL (4.0-11.0)
[2019-03-05 08:04] LABS: ALBUMIN 2.6 g/dL (3.4-5.0); ALBUMIN/GLOBULIN RATIO 0.8 (1.0-1.7); CALCIUM 8.8 mg/dL (8.5-10.1); CREATININE 0.6 mg/dL (0.7-1.3); POTASSIUM 4.2 mmol/L (3.5-5.1); TOTAL BILIRUBIN 0.3 mg/dL (0.2-1.0); TOTAL PROTEIN 5.9 g/dL (6.4-8.2)
[2019-03-05] MEDS: TICAGRELOR 90 MG TABLET. PO SCH (08:34)
[2019-03-05] MEDS: MAGNESIUM OXIDE 400 MG TABLET PO SCH (08:34)
[2019-03-05] MEDS ORDERED: METOPROLOL SUCC 24HR ER 25 MG TAB.ER.24H. PO SCH (09:00)
[2019-03-05] MEDS ORDERED: LISINOPRIL 5 MG TABLET. PO SCH (09:00)
[2019-03-05 11:00] VITALS: BP 108/57
--- NOTE | 2019-03-05 12:15 | PDOC ---
[employer] PROGRESS NOTE Chief Complaint Chief Complaint acute chest pain - troponins x3 negative wound on L sacral area weight loss, malnutrition 35 lbs weight loss in past year, Hx of prostate cancer treated with radiation/chemotherapy Afib, irreg, rate controlled Hypertension temporary homelessness, per nurse - GEOVANI consulted History of Present Illness History of Present Illness 03/05 Pt was seen and evaluated Pt resting comfortably Pt encouraged PO intake to improve weight loss 03/04/19 Pt was seen and examined. Pt in no acute distress, lying in bed. Per nurse, pt refused IV fluids yesterday. 03/03/19 Pt seen and examined. Pt lying in bed, conversant and in no acute distress. Re ports some left sided abdominal pain today. Discussed with nurse. 03/02: Patient was seen and examined on medical floor. Patient is awake and conversant, lying in bed, stating that he is irritated that the nurses have not checked on his sacral pressure sore today. DW RN, who states that the wound care team did indeed come by and take care of his sacral wound. Patient underwent a CT scan of the chest/abdomen today in order to search for metastatic disease, results pending. Patient claims to be short of breath with or without exertion at times. Wound dressing on sacrum noted to be clean, dry and intact. 03/01/19 Pt seen and examined. Pt alert and awake and conversant, lying in bed. Reports "a little chest pain". Has been eating well. Discussed with nurse. Vitals/I&O Vitals/I&O: Vital Signs Date Time Temp Pulse Resp B/P (MAP) Pulse Ox O2 Delivery O2 Flow Rate FiO2 03/05/19 08:34 61 142/63 03/05/19 08:30 Room Air 03/05/19 07:00 97.2 18 100 97.2 I & O 03/04/19 03/04/19 03/05/19 15:00 23:00 07:00 Intake Total 360 ml 240 ml Balance 360 ml 240 ml Physical Exam General: Alert, Oriented X3, No acute distress, Other (cachectic) Heart: Normal S1, Normal S2 Lungs: Clear Abdomen: Normal bowel sounds, Soft Extremities: No clubbing, No edema, Normal pulses, Other (b/l excoriations on l ower extremities) Skin: No significant lesion, Other (excoriations on b/l LE) Labs Labs: Laboratory Tests Test 03/05/19 06:05 White Blood Count 3.8 x10^3/uL (4.0-11.0) Red Blood Count 4.17 x10^6/uL (4.30-5.70) Hemoglobin 12.3 g/dL (13.0-17.5) Hematocrit 37.0 % (39.0-53.0) Mean Corpuscular Volume 89 fL (79-100) Mean Corpuscular Hemoglobin 29 pg (25-35) Mean Corpuscular Hemoglobin Concent 33 g/dL (31-37) Red Cell Distribution Width 16.2 % (11.5-14.5) Platelet Count 162 x10^3/uL (140-400) Neutrophils (%) (Auto) 69 % (31-73) Lymphocytes (%) (Auto) 19 % (24-48) Monocytes (%) (Auto) 9 % (0-9) Eosinophils (%) (Auto) 2 % (0-3) Basophils (%) (Auto) 1 % (0-3) Neutrophils # (Auto) 2.6 x10^3/uL (1.8-7.7) Lymphocytes # (Auto) 0.7 x10^3/uL (1.0-4.8) Monocytes # (Auto) 0.3 x10^3/uL (0.0-1.1) Eosinophils # (Auto) 0.1 x10^3/uL (0.0-0.7) Basophils # (Auto) 0.0 x10^3/uL (0.0-0.2) Sodium Level 143 mmol/L (136-145) Potassium Level 4.2 mmol/L (3.5-5.1) Chloride Level 107 mmol/L (98-107) Carbon Dioxide Level 31 mmol/L (21-32) Anion Gap 5 (6-14) Blood Urea Nitrogen 16 mg/dL (8-26) Creatinine 0.6 mg/dL (0.7-1.3) Estimated GFR (Cockcroft-Gault) 131.0 BUN/Creatinine Ratio 27 (6-20) Glucose Level 76 mg/dL (70-99) Calcium Level 8.8 mg/dL (8.5-10.1) Total Bilirubin 0.3 mg/dL (0.2-1.0) Aspartate Amino Transf (AST/SGOT) 15 U/L (15-37) Alanine Aminotransferase (ALT/SGPT) 17 U/L (16-63) Alkaline Phosphatase 69 U/L (46-116) Total Protein 5.9 g/dL (6.4-8.2) Albumin 2.6 g/dL (3.4-5.0) Albumin/Globulin Ratio 0.8 (1.0-1.7) Review of Systems Review of Systems: no CP, no SOB Assessment and Plan Assessmemt and Plan Problems Medical Problems: (1) Acute chest pain Status: Acute (2) CHF (congestive heart failure) Status: Acute (3) Hypoalbuminemia Status: Acute (4) Living accommodation issues Status: Acute (5) Malnutrition Status: Acute Assessment acute chest pain - troponins x3 negative wound on L sacral area weight loss, malnutrition 35 lbs weight loss in past year, Hx of prostate cancer treated with radiation/chemotherapy Afib, irreg, rate controlled Hypertension temporary homelessness, per nurse - SW consulted Plan SW consulted due to temporary homelessness Cardiac monitoring Wound halfway meds Hold and then lower dose, of metoprolol and lisinopril due to hypotension - 03/04 - Pressure improved today, 03/05 Pt refused IV fluids Encourage PO intake DVT ppx PT/OT Full code dc with hh Comment Review of Relevant I have reviewed the following items jj (where applicable) has been applied. Medications: Current Medications Medications (Trade) Dose Ordered Sig/Serge Route PRN Reason Start Time Stop Time Status Last Admin Dose Admin Lisinopril (Prinivil) 2.5 mg DAILY PO 03/05/19 09:00 03/05/19 08:34 MIKE BLAIR III DO Mar 05, 2019 12:15
--- NOTE | 2019-03-05 13:23 | SNU/HH DC ---
DISCHARGE WITH HOME HEALTH DISCHARGE INFORMATION: Final Diagnosis: Problems Medical Problems: (1) Acute chest pain Status: Acute (2) CHF (congestive heart failure) Status: Acute (3) Hypoalbuminemia Status: Acute (4) Living accommodation issues Status: Acute (5) Malnutrition Status: Acute Condition on Discharge: Stable CODE STATUS: Code Status: Full HOME HEALTH: Face to Face: I certify this patient is under my care and that I, or a nurse practitioner or physician's interior design assistant working with me, had a face to face encounter that meets the physician face to face encounter requirements with this patient on []. Medical Complications: Other (Prostate cancer) RN For Eval/Treatment: Yes Physical Therapy For: Evalulation/Treatment Occupational Therapy For: Evaluation/Treatment Home Health Aide For: Self-care HOSIERY MENDER For: Community Resources Pt Meets Homebound Status: Limited distance walking POST DISCHARGE ORDERS: Activity Instructions for Disc: Activity as tolerated Weight Bearing Status after Di: No restrictions Bathing Instructions: No Tub Bath until see DIET AFTER DISCHARGE: Cardiac Wound/Incision Care: No wound care needed CHECKS AFTER DISCHARGE: Checks after discharge: Check blood press - daily, Check blood sugar, ac/hs, Check your Temp as needed, Weigh Yourself Daily TREATMENT/EQUIPMENT ORDERS: Adaptive Equipment Issued: None CERTIFICATION STATEMENT: Certification Statement: Certification Statement: Based on the above finding, I certify that this patient is confined to the home and needs intermittent long term care, physical therapy and/or speech therapy, or continues to need occupational therapy.~ This patient is under my care, and I have initiated the establishment of the plan of care.~ This patient will be followed by myself or a community physician who will periodically review the plan of care. Home Meds Active Scripts Dicyclomine Hcl (DICYCLOMINE HCL) 20 Mg Tablet, 1 TAB PO QID PRN for Abdominal Cramping, #20 TAB Prov:SHANT HERNANDEZ MD 02/14/19 Psyllium Husk/Aspartame (METAMUCIL FIBER SINGLES PACKET) 3.4 Gm Powd.pack, 1 PKT PO DAILY for stools for 14 Days, #14 PKT Prov:DAVE EDWARDS MD 01/16/19 Acetaminophen (ACETAMINOPHEN) 500 Mg Tablet, 500 MG PO PRN Q6HRS PRN for HEADACHE / TEMP for 14 Days, #30 TAB Prov:DAVE EDWARDS MD 01/16/19 Magnesium Citrate (MAGNESIUM CITRATE) 296 Ml Solution, 296 ML PO ONCE, #296 ML Prov:MOUNAMADDIE RUIZ ALESSANDRA 01/13/19 Polyethylene Glycol 3350 (MIRALAX) 17 Gm Powd.pack, 1 PACKET PO DAILY, #30 PACKET 3 Refills Prov:MADDIE WYATT APRN 01/13/19 Ticagrelor (BRILINTA) 90 Mg Tablet, 90 MG PO BID for HEART for 30 Days, #60 TAB Prov:DAVE EDWARDS MD 12/27/18 Magnesium Oxide (MAG-OXIDE) 400 Mg Tablet, 400 MG PO DAILY for SUPPLEMENT for 30 Days, #30 TAB Prov:DAVE EDWARDS MD 12/27/18 Metoprolol Succinate (METOPROLOL SUCCINATE ( XL )) 25 Mg Tab.er.24h, 25 MG PO DAILY for HEART for 30 Days, #30 TAB.SR Prov:DAVE EDWARDS MD 12/27/18 Lactulose (LACTULOSE) 20 Gm/30 Ml Solution, 10 GM PO DAILY PRN for CONSTIPATION, #900 ML Prov:NOBLE CORREIA Jr. DO 12/21/18 Reported Medications Lisinopril (LISINOPRIL) 5 Mg Tablet, 1 TAB PO DAILY for BP, heart, #30 TAB 3 Refills 01/09/19 Oxycodone Hcl/Acetaminophen (OXYCODONE-ACETAMINOPHEN 10-325) 1 Each Tablet, 10- 325 MG PO PRN Q6HRS PRN for PAIN 01/08/19 Tamsulosin Hcl (FLOMAX) 0.4 Mg Cap.er.24h, 0.4 MG PO HS for nocturia--prostate cancer 02/28/18 Atorvastatin Calcium (ATORVASTATIN CALCIUM) 40 Mg Tablet, 80 MG PO HS for hld 04/23/13 Nitroglycerin (NITROSTAT) 0.4 Mg Tab.subl, 0.4 MG SL PRN Q5MIN for chest pains 04/23/13 MIKE BLAIR III DO Mar 05, 2019 13:23
--- NOTE | 2019-03-05 13:41 | NUR ---
SS following up with discharge planning. SS met with pt to discuss discharge planning. PT recommended home independent at discharge. Pt reported that he is not in a lease at his current home and is paying month to month. SS discussed discontinuing paying current landlord since he is not in a lease and putting money toward another apartment. SS discussed discharge with pt as discharge order is on the chart for home with home healthcare. [facility], ; fax [phone], agreed to follow pt at home. Pt became angry with pt stating that he has to stay in the hospital because his "right lung is flaking off, he has cancer, and his back bone is broken." Pt threatened SS and physicians with a law suit if we attempt to discharge him. SS contacted Dr. Rodriguez and discussed and discussed with pt's RN. All consultants have signed off and discharge order is in the system. SS phoned and faxed referral to [facility]. Pt's RN notified.
--- NOTE | 2019-03-05 15:30 | NUR ---
Discharge Note: NO[place] S[facility]NC[place] [place] Discharge instructions and discharge home medications reviewed with Patient and a copy given. All questions have been answered and understanding verbalized. The following instructions and handouts were given: CP, MALNUTRITION Discontinued lines and drains: Peripheral IV intact. Patient discharged to Home w/services withFriendvia Wheelchair Patient instructions went over with patient and friend at bedside but patient left all paperwork in the room on discharge
--- NOTE | 2019-03-06 15:46 | DS ---
DATE OF DISCHARGE: 03/05/2019 ADMISSION DIAGNOSIS: Chest pain. DISCHARGE DIAGNOSIS: Resolving chest pain. HOSPITAL COURSE: The patient is a pleasant middle-aged male, who presented with chest pain. He was admitted. We consulted Cardiology, did serial enzymes, serial EKGs, and medical management. Yesterday, I saw him and examined him. His heart tones were normal. Lungs were clear. We discharged to home with close outpatient followup. DISPOSITION: Home. ACTIVITY: As tolerated. DIET: Low sodium. MEDICATIONS: Please see the MRAD. TOTAL TIME: 32 minutes. MIKE BLAIR DO DR: MARISA/catherine JOB#: [id number] / [id number]
== END 2019-03-05 15:30 | disposition home health service (06) | DRG 391 ==
LOC: ER 14:15 → 2 NORTH 16:37
PROVIDERS: ADMIT Internal Medicine; ATTEND Internal Medicine
DX: K21.9 Gastro-esophageal reflux disease without esophagitis (principal); E43 Unspecified severe protein-calorie malnutrition; Z68.1 Body mass index [BMI] 19.9 or less, adult; E78.00 Pure hypercholesterolemia, unspecified; E78.5 Hyperlipidemia, unspecified; J44.9 Chronic obstructive pulmonary disease, unspecified; I48.91 Unspecified atrial fibrillation; I10 Essential (primary) hypertension; K76.89 Other specified diseases of liver; L89.159 Pressure ulcer of sacral region, unspecified stage; F17.210 Nicotine dependence, cigarettes, uncomplicated; I25.10 Atherosclerotic heart disease of native coronary artery without angina pectoris; I25.2 Old myocardial infarction; Z85.46 Personal history of malignant neoplasm of prostate; Z85.038 Personal history of other malignant neoplasm of large intestine; Z95.5 Presence of coronary angioplasty implant and graft; Z91.048 Other nonmedicinal substance allergy status; Z98.49 Cataract extraction status, unspecified eye; Z85.118 Personal history of other malignant neoplasm of bronchus and lung; Z92.3 Personal history of irradiation; Z59.0 Homelessness; Z92.21 Personal history of antineoplastic chemotherapy; Z90.49 Acquired absence of other specified parts of digestive tract; Z80.9 Family history of malignant neoplasm, unspecified; Z82.49 Family history of ischemic heart disease and other diseases of the circulatory system
CPT/HCPCS: 36415; 71045; 71260; 74177; 80053; 80061; 82550; 83690; 83735; 83880; 84484; 85025; 85610; 93005; G0103; J1650; J7030; J7040; Q9966; Q9967; 99285-25; G0378

== ENCOUNTER → 2019-05-03 | Outpatient (CLI) | payer MEDICARE ==
[~2019-05-03] MED LIST changes: +MAGN296S68 PO; -MAGN296S9 PO
--- NOTE | 2019-05-03 10:32 | CARD ---
MR#: [id number] Date of Study: 05/03/2019 Ordering Physician: WEN MORALES, Referring Physician: WEN MORALES, Tech: Jessi Celis RDCS APPROVED REPORT EXAM: Two-dimensional and M-mode echocardiogram with Doppler and color Doppler. Other Information Quality : Good INDICATION Atrial Fibrillation 2D DIMENSIONS Left Atrium(2D)2.3 (1.6-4.0cm)IVSd0.6 (0.7-1.1cm) Aortic Root(2D)2.0 (2.0-3.7cm)LVDd5.0 (3.9-5.9cm) LVOT Diameter2.0 (1.8-2.4cm)PWd0.6 (0.7-1.1cm) LVDs4.3 (2.5-4.0cm)FS (%) 13.2 % SV32.9 mlLVEF(%)25.0 (>50%) Aortic Valve AoV Peak Miguel Angel.81.1cm/sAoV VTI12.9cm AO Peak GR.2.6mmHgLVOT Peak Miguel Angel.79.1cm/s AO Mean GR.2mmHgAVA (VMAX)3.18cm2 POOJA (VTI)3.40cm2 Mitral Valve MV E Axqbyqrc916.1cm/sMV DECEL WOUD18bl MV A Hqscxlrw60.4cm/sE/A Ratio2.5 Pulmonary Vein S1 Aaflywtv40.5cm/sD2 Notnztnu93.5cm/s LEFT VENTRICLE The left ventricle is normal size. There is normal left ventricular wall thickness. Left ventricle sy stolic function is severely impaired. The Ejection Fraction is 20-25%. Septal motion suggestive of co nduction defect. Severe global hypokinesis. Tissue Doppler imaging reveals moderate left ventricular diastolic dysfunction. RIGHT VENTRICLE The right ventricle is normal size. The right ventricular systolic function is normal. ATRIA The left atrium size is normal. The right atrium size is normal. The interatrial septum is intact wit h no evidence for an atrial septal defect or patent foramen ovale as noted on 2-D or Doppler imaging. AORTIC VALVE The aortic valve is not well visualized. Doppler and Color Flow revealed no significant aortic regurg itation. There is no significant aortic valvular stenosis. MITRAL VALVE The mitral valve is calcified but opens well. There is no evidence of mitral valve prolapse. There is no mitral valve stenosis. Doppler and Color-flow revealed trace mitral regurgitation. TRICUSPID VALVE The tricuspid valve is normal in structure and function. Doppler and Color Flow revealed no tricuspid valve regurgitation noted. There is no tricuspid valve stenosis. PULMONIC VALVE The pulmonic valve is not well visualized. Doppler and Color Flow revealed no pulmonic valvular regur gitation. There is no pulmonic valvular stenosis. GREAT VESSELS The aortic root is normal in size. The ascending aorta is normal in size. The IVC is normal in size a nd collapses >50% with inspiration. PERICARDIAL EFFUSION There is no evidence of significant pericardial effusion. Critical Notification Critical Value: No <Conclusion> Left ventricle systolic function is severely impaired. The Ejection Fraction is 20-25%. Septal motion suggestive of conduction defect. Severe global hypokinesis. Signed by : Tin Hurt, Electronically Approved : 05/03/2019 10:31:51
== END | disposition home or self-care (01) ==
LOC: ECHO 07:41
PROVIDERS: ATTEND Internal Medicine Cardiovascular Disease
DX: I34.8 Other nonrheumatic mitral valve disorders (principal); I48.91 Unspecified atrial fibrillation; I50.20 Unspecified systolic (congestive) heart failure
CPT/HCPCS: 93306